=== PATIENT | male | born 1970 | race African-American/Black ===

== ENCOUNTER 2016-09-27 06:58 | Observation (INO) | payer BC ==
[2016-09-27] MEDS ORDERED: DIPHENHYDRAMINE HCL 50 MG/ML VIAL IV ONE ×2 (07:21→22:11)
[2016-09-27] MEDS ORDERED: FAMOTIDINE INJ/PF 20 MG/2 ML SDV IV ONE ×2 (07:21→22:07)
[2016-09-27] MEDS ORDERED: METHYLPREDNISOLONE INJ 125 MG/2 ML SDV IV ONE (07:21)
[2016-09-27] MEDS ORDERED: RACEPINEPHRINE HCL 2.25% NEB 0.5 ML AMPUL NEB ONE (07:22)
[2016-09-27 07:47] LABS: ABSOLUTE BASOPHILS # (AUTO) 0.1 10^3/uL (0.0-0.2); ABSOLUTE EOSINOPHILS # (AUTO) 0.1 10^3/uL (0.0-0.6); ABSOLUTE LYMPHOCYTES (AUTO) 2.6 10^3/uL (0.5-4.7); ABSOLUTE MONOCYTES (AUTO) 0.5 10^3/uL (0.1-1.4); ABSOLUTE NEUT (AUTO) 3.5 10^3/uL (1.7-8.2); BASOPHILS % (AUTO) 0.8 % (0-2); EOSINOPHILS % (AUTO) 2.1 % (0-6); HEMATOCRIT 41.6 % (37.9-51.0); HGB HCT DIFFERENCE 0.4; LYMPHOCYTES % (AUTO) 37.9 % (13-45); MEAN CORPUSCULAR HEMOGLOBIN 27.8 pg (27.0-33.4); MEAN CORPUSCULAR HGB CONC 33.7 g/dL (32.0-36.0); MEAN CORPUSCULAR VOLUME 82 fl (80-97); MONOCYTES % (AUTO) 7.5 % (3-13); RED BLOOD COUNT 5.05 10^6/uL (4.35-5.55); RED CELL DISTRIBUTION WIDTH 14.5 % (11.5-14.0); SEGMENTED NEUTROPHILS % (AUTO) 51.7 % (42-78); WHITE BLOOD COUNT 6.8 10^3/uL (4.0-10.5)
[2016-09-27 08:08] LABS: ALANINE AMINOTRANSFERASE 33 U/L (21-72); ALBUMIN 3.7 g/dL (3.5-5.0); ALKALINE PHOSPHATASE 116 U/L (38-126); ANION GAP 9 (5-19); ASPARTATE AMINO TRANSFERASE 20 U/L (17-59); BILIRUBIN,TOTAL 0.4 mg/dL (0.2-1.3); BLOOD UREA NITROGEN 13 mg/dL (7-20); CALCIUM 9.6 mg/dL (8.4-10.2); CARBON DIOXIDE 32 mmol/L (22-30); CHLORIDE 94 mmol/L (98-107); CREATININE RESULT 1.17 mg/dL (0.52-1.25); POTASSIUM 4.7 mmol/L (3.6-5.0); SODIUM 135.1 mmol/L (137-145); TOTAL PROTEIN 7.5 g/dL (6.3-8.2)
[2016-09-27 08:34] LABS: GLUCOSE 524 mg/dL (75-110)
[2016-09-27] MEDS ORDERED: INSULIN REG, HUMAN 100 UNIT/ML 3 ML VIAL (PYX) SUBCUT ONE (08:35)
--- NOTE | 2016-09-27 09:10 | ER Document Report ---
ED General - General Chief Complaint: Allergic Reaction Stated Complaint: TROUBLE BREATHING TRAVEL OUTSIDE OF THE [place] IN LAST 30 DAYS: No - Related Data Allergies/Adverse Reactions: ROSS Inhibitors Allergy (Severe, Verified 01/27/16 09:34) Angioneurotic Edema cyclobenzaprine HCl [From Flexeril] Allergy (Verified 01/23/16 08:43) eyes swell, SOB ibuprofen [Ibuprofen] Allergy (Verified 01/23/16 08:43) eyes swell, SOB naproxen [Naproxen] Allergy (Verified 01/23/16 08:43) eyes swell, SOB eggs Adverse Reaction (Intermediate, Uncoded 06/23/13 13:11) Hives Past Medical History - Social History Smoking Status: Never Smoker Chew tobacco use (# tins/day): No Frequency of alcohol use: Rare Drug Abuse: None Family History: Reviewed & Not Pertinent Patient has suicidal ideation: No Patient has homicidal ideation: No - Past Medical History Cardiac Medical History: Reports: Hx Hypercholesterolemia, Hx Hypertension Denies: Hx Coronary Artery Disease, Hx Heart Attack Pulmonary Medical History: Denies: Hx Asthma, Hx Bronchitis, Hx COPD, Hx Pneumonia, Hx Tuberculosis Neurological Medical History: Denies: Hx Cerebrovascular Accident, Hx Seizures Endocrine Medical History: Reports: Hx Diabetes Mellitus Type 2 Renal/ Medical History: Denies: Hx Peritoneal Dialysis Musculoskeltal Medical History: Denies Hx Arthritis Psychiatric Medical History: Reports: Hx Bipolar Disorder Denies: Hx Depression Past Surgical History: Reports: Hx Orthopedic Surgery - right thigh, right hand - Immunizations Immunizations up to date: Yes Hx Diphtheria, Pertussis, Tetanus Vaccination: Yes Physical Exam - Vital signs Vitals: Resp BP Pulse Ox 11 L 148/99 H 98 09/27/16 07:29 09/27/16 07:29 09/27/16 07:29 Course - Vital Signs Vital signs: Temp Pulse Resp BP Pulse Ox 14 148/99 H 94 09/27/16 09:00 09/27/16 07:29 09/27/16 09:00 - Laboratory Result Diagrams: 09/27/16 07:29 09/27/16 07:29 Laboratory results interpreted by me: 09/27/16 09/27/16 07:29 07:29 RDW 14.5 H Sodium 135.1 L Chloride 94 L Carbon Dioxide 32 H Glucose 524 H* Discharge - Discharge Clinical Impression: Uvular edema Dyspnea Qualifiers: Dyspnea type: unspecified Qualified Code(s): R06.00 - Dyspnea, unspecified Disposition: ADMITTED OBSERVATION Admitting Provider: José Miguel Loo Unit Admitted: Telemetry
[2016-09-27] MEDS ORDERED: DEXTROSE 50%-WATER 25 GM/50 ML DISP.SYRIN IV PRN ×2 (09:18)
[2016-09-27] MEDS ORDERED: DEXTROSE 40% GEL 15 GM TUBE PO PRN ×2 (09:18)
[2016-09-27] MEDS ORDERED: GLUCAGON,HUMAN RECOMB 1 MG INJ IM PRN (09:18)
[2016-09-27] MEDS ORDERED: INSULIN LISPRO 100 UNIT/ML 3 ML VIAL SUBCUT PRN (09:18)
--- NOTE | 2016-09-27 09:27 | PDOC H&P ---
History of Present Illness Admission Date/PCP: 09/27/2016 Primary Care Provider: DC Patient complains of: Throat swelling History of Present Illness: JOMAR OLIVO is a 46 year old -Algerian male with a past medical history of hypertension and angioedema associated with ROSS inhibitor. The patient presented to the emergency department with a chief complaint of throat swelling. It appears the patient has been admitted in the past with angioedema which associated with ROSS inhibitor. The patient's symptoms resolved and he was discharged home. However the patient was recently started on an ARB, losartan, for hypertension. The patient has taken a few doses of this and subsequently presented with angioedema. At the time of admission the patient denies any drooling he is not stridorous he is able to swallow no audible wheezing. However the patient does have persistent angioedema.The patient was referred to the hospitalists for observation and management. MEDICATIONS: The medications listed in this document may have been auto- populated from previous contact and may not been verified or reconciled. This may not be an accurate reflection of the patient's home medication(s); however, authors are unable to edit or delete the medications listed in this document as "home medications". Past Medical History Cardiac Medical History: Reports: Hyperlipidema, Hypertension Endocrine Medical History: Reports: Diabetes Mellitus Type 2 Psychiatric Medical History: Reports: Bipolar Disorder, Depression, Other - Opiate dependency continuous Past Surgical History Past Surgical History: Reports: Orthopedic Surgery - right thigh, right hand Social History Information Source: Patient Occupation: Disabled Lives with: Spouse/Significant other Smoking Status: Never Smoker Frequency of Alcohol Use: None Hx Recreational Drug Use: No Drugs: None Hx Prescription Drug Abuse: No - Advance Directive Resuscitation Status: Full Code Surrogate healthcare decision maker:: Mother Family History Family History: Reviewed & Not Pertinent Parental Family History Reviewed: Yes Children Family History Reviewed: Yes Sibling(s) Family History Reviewed.: Yes Medication/Allergy Home Medications: Insulin Detemir [Levemir Insulin 100 units/mL] 80 unit SUBCUT ACBRKFST 05/12/13 Insulin Aspart [Novolog Insulin (Aspart) 100 unit/mL] 15 unit SUBCUT AC Omeprazole 20 mg PO DAILY 06/23/13 Losartan Potassium 25 mg PO DAILY 01/23/16 Amitriptyline HCl [Elavil 100 mg Tablet] 100 mg PO QHS 02/29/16 Insulin Detemir [Levemir Insulin 100 units/mL] 80 unit SUBCUT PCSUPPER 03/01/16 Oxycodone HCl/Acetaminophen [Percocet 5-325 mg Tablet] 2 tab PO Q4HP PRN #0 tablet 03/03/16 Allergies/Adverse Reactions: ROSS Inhibitors Allergy (Severe, Verified 01/27/16 09:34) Angioneurotic Edema cyclobenzaprine HCl [From Flexeril] Allergy (Verified 01/23/16 08:43) eyes swell, SOB ibuprofen [Ibuprofen] Allergy (Verified 01/23/16 08:43) eyes swell, SOB naproxen [Naproxen] Allergy (Verified 01/23/16 08:43) eyes swell, SOB eggs Adverse Reaction (Intermediate, Uncoded 06/23/13 13:11) Hives Review of Systems Constitutional: ABSENT: chills, fever(s), headache(s), weight gain, weight loss Eyes: ABSENT: visual disturbances Ears: ABSENT: hearing changes Nose, Mouth, and Throat: PRESENT: mouth pain Cardiovascular: ABSENT: chest pain, dyspnea on exertion, edema, orthropnea, palpitations Respiratory: PRESENT: dyspnea. ABSENT: cough, hemoptysis Gastrointestinal: ABSENT: abdominal pain, constipation, diarrhea, hematemesis, hematochezia, nausea, vomiting Genitourinary: ABSENT: dysuria, hematuria Musculoskeletal: ABSENT: joint swelling Integumentary: ABSENT: rash, wounds Neurological: ABSENT: abnormal gait, abnormal speech, confusion, dizziness, focal weakness, syncope Psychiatric: ABSENT: anxiety, depression, homidical ideation, suicidal ideation Endocrine: ABSENT: cold intolerance, heat intolerance, polydipsia, polyuria Hematologic/Lymphatic: ABSENT: easy bleeding, easy bruising Physical Exam Vital Signs: Temp Pulse Resp BP Pulse Ox 14 148/99 H 94 09/27/16 09:00 09/27/16 07:29 09/27/16 09:00 Intake & Output 09/25/16 09/26/16 09/27/16 23:59 23:59 23:59 Weight 94.7 kg General appearance: PRESENT: no acute distress, cooperative, well-developed, well-nourished Head exam: PRESENT: atraumatic, normocephalic Eye exam: PRESENT: conjunctiva pink, EOMI, PERRLA. ABSENT: scleral icterus Ear exam: PRESENT: normal external ear exam Mouth exam: PRESENT: moist, tongue midline, other - Edematous uvula and tongue and lower lip Neck exam: ABSENT: carotid bruit, JVD, lymphadenopathy, thyromegaly Respiratory exam: PRESENT: clear to auscultation rian, symmetrical, unlabored. ABSENT: rales, rhonchi, tachypnea, wheezes Cardiovascular exam: PRESENT: RRR. ABSENT: diastolic murmur, rubs, systolic murmur Pulses: PRESENT: normal dorsalis pedis pul Vascular exam: PRESENT: normal capillary refill GI/Abdominal exam: PRESENT: normal bowel sounds, soft. ABSENT: distended, guarding, mass, organolmegaly, rebound, tenderness Rectal exam: PRESENT: deferred Extremities exam: PRESENT: full ROM. ABSENT: calf tenderness, clubbing, pedal edema Neurological exam: PRESENT: alert, awake, oriented to person, oriented to place , oriented to time, oriented to situation, CN II-XII grossly intact. ABSENT: motor sensory deficit Psychiatric exam: PRESENT: appropriate affect, normal mood. ABSENT: homicidal ideation, suicidal ideation Skin exam: PRESENT: dry, intact, warm. ABSENT: cyanosis, rash Results Laboratory Results: 09/27/16 07:29 09/27/16 07:29 09/27/16 09/27/16 09/27/16 07:29 07:29 07:47 WBC 6.8 RBC 5.05 Hgb 14.0 Hct 41.6 MCV 82 MCH 27.8 MCHC 33.7 RDW 14.5 H Plt Count 301 Seg Neutrophils % 51.7 Lymphocytes % 37.9 Monocytes % 7.5 Eosinophils % 2.1 Basophils % 0.8 Absolute Neutrophils 3.5 Absolute Lymphocytes 2.6 Absolute Monocytes 0.5 Absolute Eosinophils 0.1 Absolute Basophils 0.1 Sodium 135.1 L Potassium 4.7 Chloride 94 L Carbon Dioxide 32 H Anion Gap 9 BUN 13 Creatinine 1.17 Est GFR ( Amer) > 60 Est GFR (Non-Af Amer) > 60 Glucose 524 H* Calcium 9.6 Total Bilirubin 0.4 AST 20 ALT 33 Alkaline Phosphatase 116 Total Protein 7.5 Albumin 3.7 Blood Type A POSITIVE Antibody Screen NEGATIVE Assessment & Plan - Diagnosis (1) Angioedema Qualifiers: Encounter type: initial encounter Qualified Code(s): T78.3XXA - Angioneurotic edema, initial encounter Is this a current diagnosis for this admission?: YesPlan: The patient has received steroids and Benadryl in the emergency department as well as nebulizer. Will observe the patient in continuous telemetry and will start patient on both H1 and H2 receptor blockers. And monitor for evidence of respiratory compromise. No stridor at present. (2) Hypertension Qualifiers: Hypertension type: essential hypertension Qualified Code(s): I10 - Essential (primary) hypertension Is this a current diagnosis for this admission?: YesPlan: The patient is actually normotensive at this time. Will defer blood pressure treatment for now. (3) Opiate dependence, continuous Is this a current diagnosis for this admission?: YesPlan: Resume home medications once reconcilable (4) Diabetes mellitus type 2 in nonobese Is this a current diagnosis for this admission?: YesPlan: Start the patient on sliding scale coverage and resume home medications once the patient is able to take by mouth. (5) DVT prophylaxis Is this a current diagnosis for this admission?: YesPlan: Start subcutaneous heparin and ASIA hose. - Time Time Spent: 50 to 70 Minutes Medications reviewed and adjusted accordingly: Yes Anticipated discharge: Home Within: within 24 hours Disposition: The patient is a full code. Pending patient's symptomatology and diagnostic findings will reevaluate in the a.m.
[2016-09-27] MEDS ORDERED: NORMAL SALINE 1000 ML 1,000 ML IV ONE (10:00)
[2016-09-27] MEDS: CETIRIZINE 10 MG TABLET PO SCH (10:03)
[2016-09-27] MEDS ORDERED: ACETAMINOPHEN WITH CODEINE #3 TABLET PO PRN (13:36)
--- NOTE | 2016-09-27 14:30 | ER Document Report ---
ED General - General Chief Complaint: Allergic Reaction Stated Complaint: TROUBLE BREATHING TRAVEL OUTSIDE OF THE [place] IN LAST 30 DAYS: No - HPI Patient complains to provider of: uvula swelling difficulty breathing Notes: Patient with a history of angioedema coming in today for uvula swelling difficulty in breathing. Patient states this is happened before swelling to the back of his throat due to lisinopril. Patient states that he is currently on losartan. Patient states he has been taking his medications as prescribed. Patient denies any other complaints no fevers chills nausea vomiting chest pain abdominal pain. Patient states this is very similar to the last time he was admitted. - Related Data Allergies/Adverse Reactions: ROSS Inhibitors Allergy (Severe, Verified 01/27/16 09:34) Angioneurotic Edema ARB-Angiotensin Receptor Antagonist Allergy (Severe, Verified 09/27/16 13:38) Angioneurotic Edema cyclobenzaprine HCl [From Flexeril] Allergy (Verified 01/23/16 08:43) eyes swell, SOB ibuprofen [Ibuprofen] Allergy (Verified 01/23/16 08:43) eyes swell, SOB naproxen [Naproxen] Allergy (Verified 01/23/16 08:43) eyes swell, SOB eggs Adverse Reaction (Intermediate, Uncoded 06/23/13 13:11) Hives Home Medications: Current Home Medications Acetaminophen with Codeine [Tylenol #3 Tablet] 1 tab PO Q6HP PRN 09/27/16 [ History] Past Medical History - Social History Smoking Status: Never Smoker Chew tobacco use (# tins/day): No Frequency of alcohol use: Rare Drug Abuse: None Lives with: Spouse/Significant other Family History: Reviewed & Not Pertinent Patient has suicidal ideation: No Patient has homicidal ideation: No - Past Medical History Cardiac Medical History: Reports: Hx Hypercholesterolemia, Hx Hypertension Denies: Hx Coronary Artery Disease, Hx Heart Attack Pulmonary Medical History: Denies: Hx Asthma, Hx Bronchitis, Hx COPD, Hx Pneumonia, Hx Tuberculosis Neurological Medical History: Denies: Hx Cerebrovascular Accident, Hx Seizures Endocrine Medical History: Reports: Hx Diabetes Mellitus Type 2 Renal/ Medical History: Denies: Hx Peritoneal Dialysis Musculoskeltal Medical History: Denies Hx Arthritis Psychiatric Medical History: Reports: Hx Bipolar Disorder, Hx Depression, Other - Opiate dependency continuous Past Surgical History: Reports: Hx Orthopedic Surgery - right thigh, right hand - Immunizations Immunizations up to date: Yes Hx Diphtheria, Pertussis, Tetanus Vaccination: Yes History of Pneumococcal Vaccine: No Review of Systems - Review of Systems Constitutional: No symptoms reported EENT: Other - Uvula edema shortness of breath Cardiovascular: No symptoms reported Respiratory: No symptoms reported Gastrointestinal: No symptoms reported Genitourinary: No symptoms reported Male Genitourinary: No symptoms reported Musculoskeletal: No symptoms reported Skin: No symptoms reported Hematologic/Lymphatic: No symptoms reported Neurological/Psychological: No symptoms reported -: Yes All other systems reviewed and negative Physical Exam - Vital signs Vitals: Temp Pulse Resp BP Pulse Ox 97.9 F 91 14 151/92 H 96 09/27/16 07:02 09/27/16 07:02 09/27/16 07:02 09/27/16 07:02 09/27/16 07:02 Interpretation: Normal - General General appearance: Appears well, Alert - HEENT Head: Normocephalic, Atraumatic Eyes: Normal Conjunctiva: Normal Cornea: Normal Extraocular movements intact: Yes Pupils: PERRL Ears: Normal External canal: Normal Sinus: Normal Nasal: Normal Mouth/Lips: Normal Pharynx: Uvular edema - Uvula is elongated swollen Neck: Normal - Respiratory Respiratory status: No respiratory distress Chest status: Nontender Breath sounds: Normal Chest palpation: Normal - Cardiovascular Rhythm: Regular Heart sounds: Normal auscultation Murmur: No - Abdominal Inspection: Normal Distension: No distension Bowel sounds: Normal Tenderness: Nontender Organomegaly: No organomegaly - Back Back: Normal, Nontender - Extremities General upper extremity: Normal inspection, Nontender, Normal color, Normal ROM , Normal temperature General lower extremity: Normal inspection, Nontender, Normal color, Normal ROM , Normal temperature, Normal weight bearing. No: Candice's sign - Neurological Neuro grossly intact: Yes Cognition: Normal Orientation: AAOx4 [place] Coma Scale Eye Opening: Spontaneous [place] Coma Scale Verbal: Oriented [place] Coma Scale Motor: Obeys Commands [place] Coma Scale Total: 15 Speech: Normal Motor strength normal: LUE, RUE, LLE, RLE Sensory: Normal - Psychological Associated symptoms: Normal affect, Normal mood - Skin Skin Temperature: Warm Skin Moisture: Dry Skin Color: Normal Course - Re-evaluation Re-evalutation: 09/27/16 14:28 Patient's lab work showed the patient had elevated blood sugars no sign DKA. Patient had no improvement after racemic epinephrine neb Solu-Medrol Pepcid and Benadryl. Patient's vital signs remain stable patient was able to talk with clear voice. At this time patient does not look like any would need advanced airway management but would need admission to the hospital. Discussed with hospitalist will admit for further evaluation and observation. - Vital Signs Vital signs: Temp Pulse Resp BP Pulse Ox 97.9 F 74 16 156/97 H 99 09/27/16 10:48 09/27/16 10:49 09/27/16 10:48 09/27/16 10:49 09/27/16 10:48 - Laboratory Result Diagrams: 09/27/16 07:29 09/27/16 07:29 Laboratory results interpreted by me: 09/27/16 09/27/16 07:29 07:29 RDW 14.5 H Sodium 135.1 L Chloride 94 L Carbon Dioxide 32 H Glucose 524 H* Critical Care Note - Critical Care Note Total time excluding time spent on procedures (mins): 35 Comments: Multiple evaluations for patient with uvula edema angioedema. Discharge - Discharge Clinical Impression: Uvular edema Dyspnea Qualifiers: Dyspnea type: unspecified Qualified Code(s): R06.00 - Dyspnea, unspecified Condition: Good Disposition: ADMITTED OBSERVATION Admitting Provider: José Miguel matamoros Unit Admitted: Telemetry
[2016-09-27] MEDS: HEPARIN SOD (PORCINE) 5,000 UNIT/ML 1 ML SYRINGE SUBCUT SCH ×2 (14:40→21:50)
[2016-09-27] MEDS: ACETAMINOPHEN WITH CODEINE #3 TABLET PO PRN ×2 (14:42→20:43)
[2016-09-27] MEDS ORDERED: INSULIN ASPART 15 UNIT SUBCUT SCH (16:00)
[2016-09-27] MEDS: INSULIN LISPRO 100 UNIT/ML 3 ML VIAL SUBCUT SCH (16:12)
[2016-09-27] MEDS: INSULIN DETEMIR 100 UNIT/ML 3 ML PEN SUBCUT SCH (16:12)
[2016-09-27] MEDS ORDERED: INSULIN DETEMIR 100 UNIT/ML 3 ML PEN SUBCUT SCH (18:00)
[2016-09-27] MEDS ORDERED: INSULIN LISPRO 100 UNIT/ML 3 ML VIAL SUBCUT ONE (20:45)
[2016-09-27] MEDS: FAMOTIDINE INJ/PF 20 MG/2 ML SDV IV SCH (21:50)
[2016-09-27] MEDS ORDERED: AMITRIPTYLINE HCL 50 MG TABLET PO SCH (22:00)
[2016-09-27] MEDS ORDERED: (PENDING PHARMACY ID) (Amitriptyline Hcl [Elavil 100 Mg Tablet] 100 MG) PO SCH (22:00)
[2016-09-28] MEDS: ACETAMINOPHEN WITH CODEINE #3 TABLET PO PRN (06:09)
[2016-09-28] MEDS: HEPARIN SOD (PORCINE) 5,000 UNIT/ML 1 ML SYRINGE SUBCUT SCH (06:09)
[2016-09-28] MEDS ORDERED: LANSOPRAZOLE 15 MG TAB.RAP.DR PO SCH (08:00)
[2016-09-28] MEDS: INSULIN LISPRO 100 UNIT/ML 3 ML VIAL SUBCUT SCH (08:02)
[2016-09-28] MEDS: INSULIN DETEMIR 100 UNIT/ML 3 ML PEN SUBCUT SCH (08:02)
[2016-09-28] MEDS: CETIRIZINE 10 MG TABLET PO SCH (09:20)
[2016-09-28] MEDS: FAMOTIDINE INJ/PF 20 MG/2 ML SDV IV SCH (09:20)
[2016-09-28] MEDS ORDERED: AMLODIPINE BESYLATE 5 MG TABLET PO ONE (09:33)
[2016-09-28 10:53] VITALS: BP 158/95
--- NOTE | 2016-09-28 13:19 | PDOC DISCHARGE SUMMARY ---
General - Admit/Disc Date/PCP Admission Date/Primary Care Provider: 09/27/16 09:16 Discharge Date: 09/28/16 - Discharge Diagnosis (1) Angioedema Is this a current diagnosis for this admission?: YesSummary: This has resolved, most likely secondary to losartan (2) Uvular edema Summary: This has resolved with IV steroid, and pepcid - Additional Information Resuscitation Status: Full Code Discharge Diet: Diabetic Discharge Activity: Activity As Tolerated, Balance Activity w/Rest Home Medications: Insulin Detemir [Levemir Insulin 100 units/mL] 80 unit SUBCUT ACBRKFST 05/12/13 Insulin Aspart [Novolog Insulin (Aspart) 100 unit/mL] 15 unit SUBCUT AC Omeprazole 20 mg PO DAILY 06/23/13 Amitriptyline HCl [Elavil 100 mg Tablet] 100 mg PO QHS 02/29/16 Insulin Detemir [Levemir Insulin 100 units/mL] 80 unit SUBCUT PCSUPPER 03/01/16 Acetaminophen with Codeine [Tylenol #3 Tablet] 1 tab PO Q6HP PRN 09/27/16 Amlodipine Besylate 5 mg PO DAILY #30 tablet 09/28/16 Cetirizine HCl [Zyrtec 10 mg Tablet] 10 mg PO DAILY tablet 09/28/16 History of Present Illness History of Present Illness: JOMAR OLIVO is a 46 year old male who was presented to [facility] with throat swelling and difficulty breathing. He has a prior history of angioedema from tereso inhibitor, Lisinopril. He was recently started on Losartan by his PCP. He took it the am of his presentation here and shortly after began having swelling of his uvula and throat. He was given epi subcutaneous, IV steroids and Pepcid by the ED MD and referred for admission to the hospitalist service s Hospital Course Hospital Course: He was admitted to telemetry. He had resolution of his uvula swelling overnight. This morning he feels well. He tolerated a regular diabetic diet. He was started on amlodipine in place of his losartan and was will be discharged home. Physical Exam Vital Signs: Temp Pulse Resp BP Pulse Ox 98.0 F 71 18 158/95 H 98 09/28/16 10:45 09/28/16 10:45 09/28/16 10:45 09/28/16 10:45 09/28/16 10:45 Intake & Output 09/27/16 09/28/16 09/29/16 06:59 06:59 06:59 Intake Total 1330 Balance 1330 Weight 94.7 kg General appearance: PRESENT: no acute distress, well-developed, well-nourished Head exam: PRESENT: atraumatic, normocephalic Eye exam: PRESENT: conjunctiva pink, EOMI, PERRLA. ABSENT: scleral icterus Ear exam: PRESENT: normal external ear exam Mouth exam: PRESENT: moist, tongue midline Neck exam: ABSENT: carotid bruit, JVD, lymphadenopathy, thyromegaly Respiratory exam: PRESENT: clear to auscultation rian. ABSENT: rales, rhonchi, wheezes Cardiovascular exam: PRESENT: RRR. ABSENT: diastolic murmur, rubs, systolic murmur Pulses: PRESENT: normal dorsalis pedis pul Vascular exam: PRESENT: normal capillary refill GI/Abdominal exam: PRESENT: normal bowel sounds, soft. ABSENT: distended, guarding, mass, organolmegaly, rebound, tenderness Rectal exam: PRESENT: deferred Extremities exam: PRESENT: full ROM. ABSENT: calf tenderness, clubbing, pedal edema Neurological exam: PRESENT: alert, awake, oriented to person, oriented to place , oriented to time, oriented to situation, CN II-XII grossly intact. ABSENT: motor sensory deficit Psychiatric exam: PRESENT: appropriate affect, normal mood. ABSENT: homicidal ideation, suicidal ideation Skin exam: PRESENT: dry, intact, warm. ABSENT: cyanosis, rash Qualifiers PATEINT BEING DISCHARGED WITH ANY OF THE FOLLOWING DIAGNOSIS?: No Plan Time Spent: Less than 30 Minutes
== END 2016-09-28 11:10 | disposition home or self-care (01) ==
LOC: ER 06:58 → EH 09:16 → UNDOADMOB 09:29 → EH 09:29 → 5 10:34
DX: T78.3XXA Angioneurotic edema, initial encounter (principal); K12.2 Cellulitis and abscess of mouth; I10 Essential (primary) hypertension; R06.00 Dyspnea, unspecified; E78.5 Hyperlipidemia, unspecified; E11.9 Type 2 diabetes mellitus without complications; F31.9 Bipolar disorder, unspecified; F11.20 Opioid dependence, uncomplicated; E78.00 Pure hypercholesterolemia, unspecified; Z79.899 Other long term (current) drug therapy; Z88.6 Allergy status to analgesic agent; Z88.8 Allergy status to other drugs, medicaments and biological substances
CPT/HCPCS: 94640; 99291; 96374; 96375; 86900; 86901; 36415; 86850; 82962 ×2; 85025; 80053; G0378 ×3; J1644 ×2; J1815 ×4; J1200; J2930; J3490 ×2; J7030; S0028 ×2

== ENCOUNTER 2017-05-18 10:30 | Emergency (ER) | payer OTHER, BC ==
--- NOTE | 2017-05-18 10:43 | ER Document Report ---
ED Medical Screen (RME) - General Chief Complaint: Suicidal Ideation Stated Complaint: JANINE JAVIER Time Seen by Provider: 05/18/17 10:42 Notes: Patient reports that he is very depressed and tried to kill himself last night. He states that he tried to asphyxiate himself in his garage with his car. Patient states this is not the first time that he is trying to kill himself. He states he has been very depressed and tearful. He denies any auditory or visual hallucinations. He denies any psychiatric diagnosis other than depression. He states he is currently followed by a psychiatrist at the [facility]. Patient states he does live alone. He does not have access to a gun. TRAVEL OUTSIDE OF THE [place] IN LAST 30 DAYS: No - Related Data Allergies/Adverse Reactions: ROSS Inhibitors Allergy (Severe, Verified 05/18/17 10:36) Angioneurotic Edema ARB-Angiotensin Receptor Antagonist Allergy (Severe, Verified 05/18/17 10:36) Angioneurotic Edema cyclobenzaprine HCl [From Flexeril] Allergy (Verified 05/18/17 10:36) eyes swell, SOB ibuprofen [Ibuprofen] Allergy (Verified 05/18/17 10:36) eyes swell, SOB naproxen [Naproxen] Allergy (Verified 05/18/17 10:36) eyes swell, SOB eggs Adverse Reaction (Intermediate, Uncoded 05/18/17 10:36) Hives Past Medical History - Past Medical History Cardiac Medical History: Reports: Hx Hypercholesterolemia, Hx Hypertension Denies: Hx Coronary Artery Disease, Hx Heart Attack Pulmonary Medical History: Denies: Hx Asthma, Hx Bronchitis, Hx COPD, Hx Pneumonia, Hx Tuberculosis Neurological Medical History: Denies: Hx Cerebrovascular Accident, Hx Seizures Endocrine Medical History: Reports: Hx Diabetes Mellitus Type 2 Renal/ Medical History: Denies: Hx Peritoneal Dialysis Musculoskeltal Medical History: Denies Hx Arthritis Psychiatric Medical History: Reports: Hx Bipolar Disorder, Hx Depression Past Surgical History: Reports: Hx Orthopedic Surgery - right thigh, right hand - Immunizations Immunizations up to date: Yes Hx Diphtheria, Pertussis, Tetanus Vaccination: Yes Physical Exam - Vital signs Vitals: Temp Pulse Resp BP Pulse Ox 98.6 F 96 14 156/123 H 98 05/18/17 10:31 05/18/17 10:31 05/18/17 10:31 05/18/17 10:31 05/18/17 10:31 Course - Vital Signs Vital signs: Temp Pulse Resp BP Pulse Ox 98.6 F 96 14 156/123 H 98 05/18/17 10:31 05/18/17 10:31 05/18/17 10:31 05/18/17 10:31 05/18/17 10:31
[2017-05-18 11:34] LABS: ABSOLUTE BASOPHILS # (AUTO) 0.1 10^3/uL (0.0-0.2); ABSOLUTE LYMPHOCYTES (AUTO) 2.6 10^3/uL (0.5-4.7); ABSOLUTE MONOCYTES (AUTO) 0.5 10^3/uL (0.1-1.4); ABSOLUTE NEUT (AUTO) 5.3 10^3/uL (1.7-8.2); BASOPHILS % (AUTO) 1.2 % (0-2); EOSINOPHILS % (AUTO) 0.4 % (0-6); HEMATOCRIT 50.8 % (37.9-51.0); HEMOGLOBIN 17.4 g/dL (13.5-17.0); HGB HCT DIFFERENCE 1.4; LYMPHOCYTES % (AUTO) 30.2 % (13-45); MEAN CORPUSCULAR HEMOGLOBIN 28.7 pg (27.0-33.4); MEAN CORPUSCULAR HGB CONC 34.3 g/dL (32.0-36.0); MEAN CORPUSCULAR VOLUME 84 fl (80-97); MONOCYTES % (AUTO) 5.9 % (3-13); RED BLOOD COUNT 6.07 10^6/uL (4.35-5.55); RED CELL DISTRIBUTION WIDTH 15.4 % (11.5-14.0); SEGMENTED NEUTROPHILS % (AUTO) 62.3 % (42-78); WHITE BLOOD COUNT 8.5 10^3/uL (4.0-10.5)
[2017-05-18 11:43] LABS: APPEARANCE,URINE CLEAR; BILIRUBIN,URINE NEGATIVE (NEGATIVE); GLUCOSE, URINE 150 mg/dL (NEGATIVE); KETONES,URINE NEGATIVE (NEGATIVE); LEUKOCYTE ESTERASE,URINE NEGATIVE (NEGATIVE); NITRITE,URINE NEGATIVE (NEGATIVE); PROTEIN,URINE >=500 mg/dL (NEGATIVE); URINE SPECIFIC GRAVITY 1.016
[2017-05-18 11:57] LABS: URINE BARBITURATES SCREEN NEGATIVE; URINE METHADONE SCREEN NEGATIVE; URINE OPIATES LOW NEGATIVE; URINE PHENCYCLIDINE SCREEN NEGATIVE
[2017-05-18 12:11] LABS: ALANINE AMINOTRANSFERASE 48 U/L (21-72); ALBUMIN 4.6 g/dL (3.5-5.0); ALKALINE PHOSPHATASE 128 U/L (38-126); ANION GAP 14 (5-19); ASPARTATE AMINO TRANSFERASE 37 U/L (17-59); BILIRUBIN,DIRECT 0.4 mg/dL (0.0-0.4); BILIRUBIN,TOTAL 0.6 mg/dL (0.2-1.3); BLOOD UREA NITROGEN 10 mg/dL (7-20); CALCIUM 10.1 mg/dL (8.4-10.2); CARBON DIOXIDE 30 mmol/L (22-30); CHLORIDE 99 mmol/L (98-107); CREATININE RESULT 1.13 mg/dL (0.52-1.25); GLUCOSE 139 mg/dL (75-110); POTASSIUM 4.2 mmol/L (3.6-5.0); TOTAL PROTEIN 8.7 g/dL (6.3-8.2)
[2017-05-18 12:14] LABS: ALCOHOL < 10 mg/dL (NONE DETECTED)
--- NOTE | 2017-05-18 12:14 | ER Document Report ---
ED Psych Disorder / Suicide - General Mode of Arrival: Ambulatory Information source: Patient TRAVEL OUTSIDE OF THE [place] IN LAST 30 DAYS: No - HPI Patient complains to provider of: Suicidal ideation, Suicidal attempt Onset: Yesterday Associated symptoms: Other - see above <PETAR HARMON - Last Filed: 05/18/17 12:31> <GUILHERME ESPINAL - Last Filed: 05/18/17 15:06> <SOSA HUTCHINS - Last Filed: 05/19/17 18:29> - General Chief Complaint: Suicidal Ideation Stated Complaint: JANINE JAVIER Time Seen by Provider: 05/18/17 10:42 Notes: Patient is a 47 year old male who presents to the ED for suicidal ideation for the past several month. Patient states last night he attempted suicide by carbon dioxide poisoning. He was sitting in his running car in his garage, he fell asleep at some point and when he woke up he had a headache and then turned the car off. He states he has been drinking very heavily recently, he has never gone through alcohol withdrawal. He denies any recent even or an increase in stress causing this event. He sees a counselor through the [place]. Patient also states he is diabetic, has taken his insulin but has not yet eaten. He also has a diabetic ulcer on his left great toe that is being treated by wound care. (PETAR HARMON) - HPI Notes: Evaluation 05/18/2017: Patient disclosed that he came to [facility] ED because he attempted suicide last night. He states that he got into the car and closed the garage door after turning the car on. Patient states he did turn off the car once he got a headache because he changed his mind at the last minute. Patient states he is tired of being depressed. Patient states "I cannot do what I used to do I am in a lot of pain." Patient states that some days he barely makes it through. He thinks about suicide at least 4-5 days a week. 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 Patient states "I drink every night until I pass out. Patient is alert and orientated to person place time and circumstance. Mood is dysphoric with tearful affect. Patient endorses suicidal ideation with plans mean an attempt. Patient denies homicidal ideation. Patient denies auditory visual hallucinations. Delusions were absent and behaviors congruent with intact reality based presentation i.e. organized, linear thinking. Eye contact was poor. Intellectual abilities appear to be within average range. Attention and concentration were fair. Conversational speech was within normal rate tone and prosody. Insight, judgment, impulse control are poor. 291.9 (F10.99) unspecified alcohol related disorder 311 (F32.9) unspecified depressive disorder Impression\\plan: Patient is recommended for IVC. Patient will be reevaluated. Dr. Pritchett was consulted on the care management of this patient; attending physician is agreement with recommendations and disposition. Clinician conducted checking with patient on 05/19/2017: Patient disclosed he is not feeling very different from yesterday. Patient asked clinician to discuss process again of IVC. Patient disclosed concern of being stuck in the room and being so depressed 291.9 (F10.99) unspecified alcohol related disorder 311 (F32.9) unspecified depressive disorder Impression\\plan: Patient is recommended to continue under IVC; patient was accepted to [facility] and transportation will occur today. Dr. Pritchett was consulted on the care and management of this patient; attending physician is in agreement with recommended she is a disposition. (SOSA HUTCHINS) - Related Data Allergies/Adverse Reactions: ROSS Inhibitors Allergy (Severe, Verified 05/18/17 10:36) Angioneurotic Edema ARB-Angiotensin Receptor Antagonist Allergy (Severe, Verified 05/18/17 10:36) Angioneurotic Edema cyclobenzaprine HCl [From Flexeril] Allergy (Verified 05/18/17 10:36) eyes swell, SOB ibuprofen [Ibuprofen] Allergy (Verified 05/18/17 10:36) eyes swell, SOB naproxen [Naproxen] Allergy (Verified 05/18/17 10:36) eyes swell, SOB eggs Adverse Reaction (Intermediate, Uncoded 05/18/17 10:36) Hives Home Medications: Current Home Medications Losartan Potassium 10 mg PO DAILY 05/18/17 [History] Pregabalin [Lyrica] 300 mg PO TID 05/18/17 [History] Past Medical History - General Information source: Patient - Social History Smoking Status: Never Smoker Chew tobacco use (# tins/day): No Frequency of alcohol use: Heavy Drug Abuse: None Family History: Reviewed & Not Pertinent Patient has suicidal ideation: Yes - Past Medical History Cardiac Medical History: Reports: Hx Hypercholesterolemia, Hx Hypertension Denies: Hx Coronary Artery Disease, Hx Heart Attack Pulmonary Medical History: Denies: Hx Asthma, Hx Bronchitis, Hx COPD, Hx Pneumonia, Hx Tuberculosis Neurological Medical History: Denies: Hx Cerebrovascular Accident, Hx Seizures Endocrine Medical History: Reports: Hx Diabetes Mellitus Type 2 Renal/ Medical History: Denies: Hx Peritoneal Dialysis Musculoskeltal Medical History: Denies Hx Arthritis Psychiatric Medical History: Reports: Hx Bipolar Disorder, Hx Depression Past Surgical History: Reports: Hx Orthopedic Surgery - right thigh, right hand - Immunizations Immunizations up to date: Yes Hx Diphtheria, Pertussis, Tetanus Vaccination: Yes <PETAR HARMON - Last Filed: 05/18/17 12:31> Review of Systems - Review of Systems Constitutional: No symptoms reported EENT: No symptoms reported Cardiovascular: No symptoms reported Respiratory: No symptoms reported Gastrointestinal: No symptoms reported Genitourinary: No symptoms reported Male Genitourinary: No symptoms reported Musculoskeletal: No symptoms reported Skin: See HPI, Other - diabetic ulcer to left great toe, being treated by wound clinic Hematologic/Lymphatic: No symptoms reported Neurological/Psychological: See HPI, Depression, Suicidal ideation <PETAR HARMON - Last Filed: 05/18/17 12:31> Physical Exam - General General appearance: Alert - HEENT Head: Normocephalic, Atraumatic Eyes: Normal Extraocular movements intact: Yes Pupils: PERRL - Respiratory Respiratory status: No respiratory distress Breath sounds: Normal - Cardiovascular Rhythm: Regular Heart sounds: Normal auscultation Murmur: No - Abdominal Inspection: Normal Distension: No distension Tenderness: Nontender - Back Back: Normal - Extremities General upper extremity: Normal inspection, Normal ROM General lower extremity: Normal ROM, Other - 1 cm ulcer to bottom of left great toe. No: Edema - Neurological Neuro grossly intact: Yes - Psychological Associated symptoms: Flat affect - Skin Skin Temperature: Warm Skin Moisture: Dry Skin Color: Normal Skin irregularity: other - 1 cm ulcer on bottom of left great toe <PETAR HARMON - Last Filed: 05/18/17 12:31> - Vital signs Vitals: Temp Pulse Resp BP Pulse Ox 98.6 F 96 14 156/123 H 98 05/18/17 10:31 05/18/17 10:31 05/18/17 10:31 05/18/17 10:31 05/18/17 10:31 Course - Laboratory Result Diagrams: 05/18/17 11:10 05/18/17 11:10 <FAUSTINOPETAR - Last Filed: 05/18/17 12:31> - Laboratory Result Diagrams: 05/18/17 11:10 05/18/17 11:10 <GUILHERME ESPINAL - Last Filed: 05/18/17 15:06> - Laboratory Result Diagrams: 05/18/17 11:10 05/18/17 11:10 <SOSA HUTCHINS - Last Filed: 05/19/17 18:29> - Re-evaluation Re-evalutation: 05/18/17 Patient presents with suicidal ideation. Patient has been seen for depression in the past. Patient states that he was in his car last night. Patient has no physical complaints at this time. Patient is medically stable. He will be evaluated by mental health and in the meantime remain on involuntary commitment paperwork due to suicidal ideation with recent attempt. (GUILHERME ESPINAL) - Vital Signs Vital signs: Temp Pulse Resp BP Pulse Ox 97.4 F 76 16 136/85 H 98 05/19/17 15:00 05/19/17 15:00 05/19/17 15:00 05/19/17 15:00 05/19/17 15:00 - Laboratory Laboratory results interpreted by la: 05/18/17 05/18/17 05/18/17 11:05 11:10 11:10 RBC 6.07 H Hgb 17.4 H RDW 15.4 H Glucose 139 H POC Glucose Alkaline Phosphatase 128 H Total Protein 8.7 H Urine Protein >=500 H Urine Glucose (UA) 150 H Urine Urobilinogen 2.0 H Salicylates < 1.0 L Acetaminophen < 10 L 05/18/17 05/18/17 05/18/17 12:16 18:09 21:14 RBC Hgb RDW Glucose POC Glucose 115 H 179 H 185 H Alkaline Phosphatase Total Protein Urine Protein Urine Glucose (UA) Urine Urobilinogen Salicylates Acetaminophen 0905/19/17 05/19/17 07:30 10:13 11:54 RBC Hgb RDW Glucose POC Glucose 111 H 57 L 148 H Alkaline Phosphatase Total Protein Urine Protein Urine Glucose (UA) Urine Urobilinogen Salicylates Acetaminophen Discharge <PETAR HARMON - Last Filed: 05/18/17 12:31> <GUILHERME ESPINAL - Last Filed: 05/18/17 15:06> <SOSA HUTCHINS - Last Filed: 05/19/17 18:29> - Discharge Clinical Impression: Depression Condition: Stable Disposition: PSYCH HOSP/UNIT Referrals: MARILYN NELSON MD [Primary Care Provider] - Follow up as needed Scribe Documentation - Scribe Written by Barneye:: james Cross, 05/18/2017, 1231 acting as scribe for :: Selwyn <PETAR HARMON - Last Filed: 05/18/17 12:31>
--- NOTE | 2017-05-18 14:04 | EKG REPORT ---
SEVERITY:- NORMAL ECG - SINUS RHYTHM : Confirmed by: Alejo Robles MD 18-May-2017 14:02:58
[2017-05-18] MEDS ORDERED: ACETAMINOPHEN 325 MG TABLET PO ONE (15:15)
[2017-05-18] MEDS ORDERED: OLANZAPINE 5 MG TABLET PO ONE (17:22)
[2017-05-18] MEDS ORDERED: HYDROXYZINE PAMOATE 50 MG CAPSULE PO PRN (17:22)
[2017-05-18] MEDS ORDERED: VENLAFAXINE HCL 75 MG TABLET PO SCH (18:00)
[2017-05-18] MEDS ORDERED: DEXTROSE 50%-WATER 25 GM/50 ML DISP.SYRIN IV PRN ×2 (18:11)
[2017-05-18] MEDS ORDERED: DEXTROSE 40% GEL 15 GM TUBE PO PRN ×2 (18:11)
[2017-05-18] MEDS ORDERED: GLUCAGON,HUMAN RECOMB 1 MG INJ IM PRN (18:11)
[2017-05-18] MEDS ORDERED: AMITRIPTYLINE HCL 50 MG TABLET PO SCH (22:00)
[2017-05-18] MEDS ORDERED: PREGABALIN 75 MG CAPSULE PO SCH (22:00)
[2017-05-19] MEDS ORDERED: MAGNESIUM SULFATE/D5W 0 GM/0 ML RTUPB IV ONE (01:43)
[2017-05-19] MEDS ORDERED: INSULIN LISPRO 100 UNIT/ML 3 ML VIAL SUBCUT SCH ×2 (08:00)
[2017-05-19] MEDS ORDERED: INSULIN ASPART 15 UNIT SUBCUT SCH (08:00)
[2017-05-19] MEDS ORDERED: INSULIN DETEMIR 100 UNIT/ML 3 ML PEN SUBCUT SCH ×2 (08:00→18:00)
[2017-05-19] MEDS ORDERED: PREGABALIN 100 MG CAPSULE PO ONE (08:15)
[2017-05-19] MEDS ORDERED: LANSOPRAZOLE 15 MG TAB.RAP.DR PO SCH (10:00)
[2017-05-19] MEDS ORDERED: LOSARTAN POTASSIUM 25 MG TABLET PO SCH (10:00)
--- NOTE | 2017-05-19 10:52 | ER Document Report ---
Doctor's Note Notes: 05/19/17 10:51 Patient resting, no complaints. Had an episode of hypoglycemia this morning. Did not receive his long-acting insulin as his blood sugar apparently was low.. We stopped his scheduled Humalog and he is eating. He is more alert at this point. We are awaiting transfer to [facility]. 05/19/17 11:36
[2017-05-19] MEDS ORDERED: VENLAFAXINE HCL 75 MG TABLET PO ONE (13:00)
[2017-05-19] MEDS ORDERED: PREGABALIN 100 MG CAPSULE PO SCH (14:00)
[2017-05-19 15:44] VITALS: BP 136/85
[2017-05-19] MEDS ORDERED: VENLAFAXINE HCL 75 MG TABLET PO SCH (22:00)
[2017-05-20] MEDS ORDERED: LANSOPRAZOLE 15 MG TAB.RAP.DR PO SCH (06:00)
== END 2017-05-19 15:45 ==
LOC: EEVIPCON 10:30 → ER 10:30
DX: F32.9 Major depressive disorder, single episode, unspecified (principal); T59.7X2A Toxic effect of carbon dioxide, intentional self-harm, initial encounter; F10.10 Alcohol abuse, uncomplicated; Y92.89 Other specified places as the place of occurrence of the external cause; Z79.899 Other long term (current) drug therapy
CPT/HCPCS: 93005; 36415; 82962; 80307 ×4; 85025; 80053; 81001; 93010; J1815 ×2

== ENCOUNTER → 2017-12-08 | Outpatient (CLI) | payer BC ==
--- NOTE | 2017-12-09 08:01 | XCELERA REPORT ---
[address] [address] Lower Extremity Arterial Evaluation Name: JOMAR OLIVO Age: 47 yrs Gender: Male : 1970 Patient Status: Outpatient Patient Location: Study Date: 12/08/2017 02:33 PM Procedure: A color flow and duplex scan of the lower extremity arteries was performed bilaterally with velocity and waveform anaylsis. 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 0 % stenosis . Ankle Brachial index 1.11 in the Posterior Tibial, not obtainable, in the Anterior Tibial artery due to non compressibility. Left Side Arterial Evaluation Normal velocity and triphasic waveforms noted from the Common Femoral artery to the infrageniculate vessels. 0 % stenosis . Ankle Brachial index not obtainable, due to non compressibility. Interpretation Summary No hemodynamically significant lesions in the bilateral lower extremities, on duplex imaging, at rest. Medial calcinosis is suggested by non compressibility in small arteries. : PHILIP CAVANAUGH > Keith Klein
== END ==
LOC: SP 14:00
PROVIDERS: ATTEND Preventive Medicine Undersea and Hyperbaric Medicine
DX: L97.512 Non-pressure chronic ulcer of other part of right foot with fat layer exposed (principal)
CPT/HCPCS: 93922; 93925

== ENCOUNTER → 2018-01-12 | Outpatient (CLI) | payer BC ==
--- NOTE | 2018-01-12 17:17 | RADIOLOGY REPORT (SQ) ---
EXAM DESCRIPTION: FOOT LEFT COMPLETE COMPLETED DATE/TIME: 01/12/2018 5:07 pm REASON FOR STUDY: Non-pressure chronic ulcer of other part of left foot with fat layer expose COMPARISON: None. NUMBER OF VIEWS: Three views. TECHNIQUE: AP, lateral and oblique radiographic images acquired of the left foot. LIMITATIONS: None. FINDINGS: MINERALIZATION: Normal. BONES: No acute fracture or dislocation. No worrisome bone lesions. JOINTS: No effusions. SOFT TISSUES: No soft tissue swelling. No foreign body. OTHER: No other significant finding. IMPRESSION: No acute osseous abnormality in the left foot. There is no evidence of osteomyelitis. TECHNICAL DOCUMENTATION: JOB ID: [id number] [employer]- All Rights Reserved Reading location - IP/workstation name: [email or web address]
== END ==
LOC: RAD 16:45
PROVIDERS: ATTEND Preventive Medicine Undersea and Hyperbaric Medicine
DX: L97.522 Non-pressure chronic ulcer of other part of left foot with fat layer exposed (principal)

== ENCOUNTER 2018-11-03 15:18 | Inpatient (IN) | payer OTHER, BC ==
[2018-11-03] MEDS ORDERED: RINGERS SOLUTION,LACTATED 1,000 ML IV PRN ×2 (15:48→23:29)
[2018-11-03] MEDS ORDERED: METOCLOPRAMIDE HCL INJ/PF 10 MG/2 ML SDV IV ONE (15:48)
[2018-11-03] MEDS ORDERED: PANTOPRAZOLE SODIUM 40 MG VIAL IV ONE ×2 (15:49→21:48)
[2018-11-03] MEDS ORDERED: DIPHENHYDRAMINE HCL 50 MG/ML VIAL IV ONE (15:49)
--- NOTE | 2018-11-03 15:51 | ER Document Report ---
ED Medical Screen (RME) - General Chief Complaint: Abdominal Pain Stated Complaint: VOMITING BLOOD Time Seen by Provider: 11/03/18 15:48 Primary Care Provider: PHILIP CAVANAUGH DPM [Primary Care Provider] - Follow up as needed Mode of Arrival: Ambulatory Information source: Patient Notes: This is a 48-year-old man with a history of GERD who presents to the emergency room with nausea, vomiting significant epigastric pain. TRAVEL OUTSIDE OF THE [place] IN LAST 30 DAYS: No - Related Data Allergies/Adverse Reactions: ROSS Inhibitors Allergy (Severe, Verified 11/03/18 15:21) Angioneurotic Edema ARB-Angiotensin Receptor Antagonist Allergy (Severe, Verified 11/03/18 15:21) Angioneurotic Edema cyclobenzaprine HCl [From Flexeril] Allergy (Verified 11/03/18 15:21) eyes swell, SOB ibuprofen [Ibuprofen] Allergy (Verified 11/03/18 15:21) eyes swell, SOB naproxen [Naproxen] Allergy (Verified 11/03/18 15:21) eyes swell, SOB eggs Adverse Reaction (Intermediate, Uncoded 11/03/18 15:21) Hives Past Medical History - Social History Chew tobacco use (# tins/day): No Frequency of alcohol use: Rare Drug Abuse: None - Past Medical History Cardiac Medical History: Reports: Hx Hypercholesterolemia, Hx Hypertension Denies: Hx Coronary Artery Disease, Hx Heart Attack Pulmonary Medical History: Denies: Hx Asthma, Hx Bronchitis, Hx COPD, Hx Pneumonia, Hx Tuberculosis Neurological Medical History: Denies: Hx Cerebrovascular Accident, Hx Seizures Endocrine Medical History: Reports: Hx Diabetes Mellitus Type 2 Renal/ Medical History: Denies: Hx Peritoneal Dialysis Musculoskeltal Medical History: Denies Hx Arthritis Psychiatric Medical History: Reports: Hx Bipolar Disorder, Hx Depression Past Surgical History: Reports: Hx Orthopedic Surgery - right thigh, right hand - Immunizations Immunizations up to date: Yes Hx Diphtheria, Pertussis, Tetanus Vaccination: Yes Physical Exam - Vital signs Vitals: Temp Pulse Resp BP Pulse Ox 99.5 F 108 H 16 166/110 H 97 11/03/18 15:23 11/03/18 15:23 11/03/18 15:23 11/03/18 15:23 11/03/18 15:23 Course - Vital Signs Vital signs: Temp Pulse Resp BP Pulse Ox 99.5 F 108 H 16 166/110 H 97 11/03/18 15:23 11/03/18 15:23 11/03/18 15:23 11/03/18 15:23 11/03/18 15:23 Doctor's Discharge - Discharge Referrals: PHILIP CAVANAUGH DPM [Primary Care Provider] - Follow up as needed
[2018-11-03 16:35] LABS: ABSOLUTE BASOPHILS # (AUTO) 0.1 10^3/uL (0.0-0.2); ABSOLUTE LYMPHOCYTES (AUTO) 2.9 10^3/uL (0.5-4.7); ABSOLUTE NEUT (AUTO) 9.7 10^3/uL (1.7-8.2); BASOPHILS % (AUTO) 1.1 % (0-2); EOSINOPHILS % (AUTO) 0.3 % (0-6); HEMOGLOBIN 16.2 g/dL (13.5-17.0); LYMPHOCYTES % (AUTO) 20.9 % (13-45); MEAN CORPUSCULAR HEMOGLOBIN 28.3 pg (27.0-33.4); MEAN CORPUSCULAR HGB CONC 34.4 g/dL (32.0-36.0); MEAN CORPUSCULAR VOLUME 82 fl (80-97); MONOCYTES % (AUTO) 7.1 % (3-13); PLATELET COUNT 300 10^3/uL (150-450); RED BLOOD COUNT 5.71 10^6/uL (4.35-5.55); SEGMENTED NEUTROPHILS % (AUTO) 70.6 % (42-78); TOTAL CELLS COUNTED % (AUTO) 100 %; WHITE BLOOD COUNT 13.7 10^3/uL (4.0-10.5)
[2018-11-03] MEDS ORDERED: MORPHINE SULFATE 10 MG/ML INJ IV ONE ×2 (16:37→18:09)
[2018-11-03] MEDS ORDERED: ONDANSETRON HCL INJ/PF 4 MG/2 ML SDV IV ONE (16:38)
[2018-11-03] MEDS: NORMAL SALINE 1000 ML 1,000 ML IV PRN ×3 (16:39→23:01)
[2018-11-03 16:55] LABS: ALANINE AMINOTRANSFERASE 22 U/L (21-72); ALBUMIN 4.6 g/dL (3.5-5.0); ALKALINE PHOSPHATASE 128 U/L (38-126); ANION GAP 13 (5-19); ASPARTATE AMINO TRANSFERASE 55 U/L (17-59); BILIRUBIN,DIRECT 0.2 mg/dL (0.0-0.4); BILIRUBIN,TOTAL 0.5 mg/dL (0.2-1.3); BLOOD UREA NITROGEN 23 mg/dL (7-20); CALCIUM 10.8 mg/dL (8.4-10.2); CARBON DIOXIDE 29 mmol/L (22-30); CHLORIDE 93 mmol/L (98-107); LIPASE 313.4 U/L (23-300); POTASSIUM 5.8 mmol/L (3.6-5.0); SODIUM 135.1 mmol/L (137-145); TOTAL PROTEIN 8.8 g/dL (6.3-8.2)
[2018-11-03 17:02] LABS: GLUCOSE 416 mg/dL (75-110)
--- NOTE | 2018-11-03 17:27 | RADIOLOGY REPORT (SQ) ---
EXAM DESCRIPTION: CHEST SINGLE VIEW COMPLETED DATE/TIME: 11/03/2018 5:13 pm REASON FOR STUDY: epigastric pain COMPARISON: 02/29/2016 TECHNIQUE: Single frontal radiographic view of the chest acquired. NUMBER OF VIEWS: One view. LIMITATIONS: None. FINDINGS: LUNGS AND PLEURA: No pneumothorax. No consolidation or pleural effusion. MEDIASTINUM AND HILAR STRUCTURES: Stable. HEART AND VASCULAR STRUCTURES: Stable. BONES: No acute findings. HARDWARE: None in the chest. OTHER: No other significant finding. IMPRESSION: NO ACUTE FINDINGS. TECHNICAL DOCUMENTATION: JOB ID: [id number] [employer]- All Rights Reserved Reading location - IP/workstation name: [email or web address]
[2018-11-03] MEDS ORDERED: LIDOCAINE 2% VISCOUS SOLN 20 ML UDCUP PO ONE (17:47)
[2018-11-03] MEDS ORDERED: METOCLOPRAMIDE HCL ORAL SOLN 10 MG/10 ML UDCUP PO ONE (17:47)
[2018-11-03] MEDS ORDERED: MAG HYDROX/AL HYDROX/SIMETH SUSP 30 ML UDCUP PO ONE (17:47)
--- NOTE | 2018-11-03 17:49 | ER Document Report ---
ED GI/ - General Chief Complaint: Abdominal Pain Stated Complaint: VOMITING BLOOD Time Seen by Provider: 11/03/18 15:48 Primary Care Provider: PHILIP CAVANAUGH DPM [ACTIVE STAFF] - Follow up as needed Mode of Arrival: Ambulatory Notes: 48-year-old -[place] male to the emergency department chief complaint of hematemesis. Patient states that he has been vomiting off and on for the last week. Got worse today. Has severe acid reflux. Having significant burning in the epigastric region. States he vomited about a cup of bright red blood. Has not noticed any black or tarry stools. He is on multiple medications. History of diabetes. Cannot stop having hiccups. TRAVEL OUTSIDE OF THE [place] IN LAST 30 DAYS: No - HPI Patient complains to provider of: Abdominal pain Timing/Duration: Gradual, Worse Quality of pain: Burning Severity at maximum: Moderate Severity in ED: Moderate Pain Level: 3 Location: Epigastric Associated symptoms: Vomiting - Related Data Allergies/Adverse Reactions: ROSS Inhibitors Allergy (Severe, Verified 11/03/18 15:21) Angioneurotic Edema ARB-Angiotensin Receptor Antagonist Allergy (Severe, Verified 11/03/18 15:21) Angioneurotic Edema cyclobenzaprine HCl [From Flexeril] Allergy (Verified 11/03/18 15:21) eyes swell, SOB ibuprofen [Ibuprofen] Allergy (Verified 11/03/18 15:21) eyes swell, SOB naproxen [Naproxen] Allergy (Verified 11/03/18 15:21) eyes swell, SOB eggs Adverse Reaction (Intermediate, Uncoded 11/03/18 15:21) Hives Past Medical History - General Information source: Patient - Social History Smoking Status: Never Smoker Chew tobacco use (# tins/day): No Frequency of alcohol use: Rare Drug Abuse: None Family History: Reviewed & Not Pertinent Patient has suicidal ideation: No Patient has homicidal ideation: No - Past Medical History Cardiac Medical History: Reports: Hx Hypercholesterolemia, Hx Hypertension Denies: Hx Coronary Artery Disease, Hx Heart Attack Pulmonary Medical History: Denies: Hx Asthma, Hx Bronchitis, Hx COPD, Hx Pneumonia, Hx Tuberculosis Neurological Medical History: Denies: Hx Cerebrovascular Accident, Hx Seizures Endocrine Medical History: Reports: Hx Diabetes Mellitus Type 2 Renal/ Medical History: Denies: Hx Peritoneal Dialysis Musculoskeletal Medical History: Denies Hx Arthritis Psychiatric Medical History: Reports: Hx Bipolar Disorder, Hx Depression Past Surgical History: Reports: Hx Orthopedic Surgery - right thigh, right hand - Immunizations Immunizations up to date: Yes Hx Diphtheria, Pertussis, Tetanus Vaccination: Yes Review of Systems - Review of Systems Notes: Constitutional: denies: Chills, Diaphoresis, Fever, Malaise, Weakness EENT: denies: Eye discharge, Blurred vision, Tearing, Double vision, Nose congestion, Nose discharge, Throat swelling, Mouth pain Cardiovascular: denies: Palpitations, Heart racing, Orthopnea, Dyspnea, Chest pain Respiratory: denies: Cough, Hurts to breathe, Wheezing, Shortness of breath Gastrointestinal: Hiccups, abdominal pain, vomiting Genitourinary: denies: Burning, Dysuria, Discharge, Frequency, Flank pain, Hematuria Musculoskeletal: denies: Joint pain, Joint swelling, Muscle pain, Muscle stiffness, back pain Hematologic/Lymphatic: denies: Anemia, Easy bleeding, Easy bruising, Blood clots Neurological/Psychological: denies: Confusion, Dementia, Depression, Loss of consciousness Skin: No lesions, no masses, no skin breakdown, no abscesses Physical Exam - Vital signs Vitals: Temp Pulse Resp BP Pulse Ox 99.5 F 108 H 16 166/110 H 97 11/03/18 15:23 11/03/18 15:23 11/03/18 15:23 11/03/18 15:23 11/03/18 15:23 Interpretation: Normal - General General appearance: Appears well, Alert - HEENT Head: Normocephalic, Atraumatic Eyes: Normal Pupils: PERRL - Respiratory Respiratory status: No respiratory distress Chest status: Nontender Breath sounds: Normal Chest palpation: Normal - Cardiovascular Rhythm: Regular Heart sounds: Normal auscultation Murmur: No - Abdominal Inspection: Normal Distension: No distension Bowel sounds: Normal Tenderness: Tender - Tenderness in the epigastric region Organomegaly: No organomegaly Notes: Intractable hiccups - Rectal Stool: Heme positive Hemorrhoids: None Prostate: Normal - Back Back: Normal, Nontender - Extremities General upper extremity: Normal inspection, Nontender, Normal color, Normal ROM, Normal temperature General lower extremity: Normal inspection, Nontender, Normal color, Normal ROM, Normal temperature, Normal weight bearing. No: Candice's sign - Neurological Neuro grossly intact: Yes Cognition: Normal Orientation: AAOx4 [place] Coma Scale Eye Opening: Spontaneous [place] Coma Scale Verbal: Oriented [place] Coma Scale Motor: Obeys Commands Vinnie Coma Scale Total: 15 Speech: Normal Motor strength normal: LUE, RUE, LLE, RLE Sensory: Normal - Psychological Associated symptoms: Normal affect, Normal mood - Skin Skin Temperature: Warm Skin Moisture: Dry Skin Color: Normal Course - Re-evaluation Re-evalutation: 11/03/18 19:53 Surgery was paged after initial evaluation. Surgeon recommends CT scan 11/03/18 21:50 CT scan does not reveal anything significant. Labs are a bit off. Blood sugar remains high. Potassium elevated at 5.8. Patient has been hydrated. Slight elevated WBC count. Feeling better but symptoms are coming back. Uncomfortable discharging patient at this time due to the upper GI bleed concerns. Surgery has been reconsulted and he will evaluate patient. Will talk to the medicine team about admitting him. Patient is on Protonix drip. IV fluids. Carafate. Awaiting consult with medicine for admit. 11/03/18 22:16 Dr. Harrell with medicine team is here at this time. Will admit at this time in stable condition. Surgery has seen and will consult. 11/03/18 22:16 Abdomen/Pelvis CT 11/03/18 00:00 IMPRESSION: There is a small hiatal hernia. Posterior pulmonary atelectasis and probable edema in the anterior subcutaneous fat. No other clear etiology for acute symptoms. Chest X-Ray 11/03/18 15:50 IMPRESSION: NO ACUTE FINDINGS. Laboratory 11/03/18 11/03/18 11/03/18 16:13 16:13 16:23 WBC 13.7 H RBC 5.71 H Hgb 16.2 Hct 47.0 MCV 82 MCH 28.3 MCHC 34.4 RDW 15.0 H Plt Count 300 Seg Neutrophils % 70.6 Lymphocytes % 20.9 Monocytes % 7.1 Eosinophils % 0.3 Basophils % 1.1 Absolute Neutrophils 9.7 H Absolute Lymphocytes 2.9 Absolute Monocytes 1.0 Absolute Eosinophils 0.0 Absolute Basophils 0.1 VBG pH VBG pCO2 VBG HCO3 VBG Base Excess Sodium 135.1 L Potassium 5.8 H Chloride 93 L Carbon Dioxide 29 Anion Gap 13 BUN 23 H Creatinine 1.22 Est GFR ( Amer) > 60 Est GFR (Non-Af Amer) > 60 Glucose 416 H* POC Glucose Lactic Acid Calcium 10.8 H Total Bilirubin 0.5 Direct Bilirubin 0.2 Neonat Total Bilirubin Not Reportable Neonat Direct Bilirubin Not Reportable Neonat Indirect Bili Not Reportable AST 55 ALT 22 Alkaline Phosphatase 128 H Total Protein 8.8 H Albumin 4.6 Lipase 313.4 H Urine Color Urine Appearance Urine pH Ur Specific [place] Urine Protein Urine Glucose (UA) Urine Ketones Urine Blood Urine Nitrite Urine Bilirubin Urine Urobilinogen Ur Leukocyte Esterase Urine WBC (Auto) Urine RBC (Auto) U Hyaline Cast (Auto) Squamous Epi Cells Auto Urine Mucus (Auto) Urine Ascorbic Acid POC Stool Occult Blood Blood Type A POSITIVE Antibody Screen NEGATIVE 11/03/18 11/03/18 11/03/18 17:42 17:52 19:05 WBC RBC Hgb Hct MCV MCH MCHC RDW Plt Count Seg Neutrophils % Lymphocytes % Monocytes % Eosinophils % Basophils % Absolute Neutrophils Absolute Lymphocytes Absolute Monocytes Absolute Eosinophils Absolute Basophils VBG pH VBG pCO2 VBG HCO3 VBG Base Excess Sodium Potassium Chloride Carbon Dioxide Anion Gap BUN Creatinine Est GFR ( Amer) Est GFR (Non-Af Amer) Glucose POC Glucose Lactic Acid 1.0 Calcium Total Bilirubin Direct Bilirubin Neonat Total Bilirubin Neonat Direct Bilirubin Neonat Indirect Bili AST ALT Alkaline Phosphatase Total Protein Albumin Lipase Urine Color YELLOW Urine Appearance CLEAR Urine pH 6.0 Ur Specific [place] 1.026 Urine Protein >=500 H Urine Glucose (UA) >=500 H Urine Ketones 20 H Urine Blood NEGATIVE Urine Nitrite NEGATIVE Urine Bilirubin NEGATIVE Urine Urobilinogen NEGATIVE Ur Leukocyte Esterase NEGATIVE Urine WBC (Auto) 2 Urine RBC (Auto) 3 U Hyaline Cast (Auto) 3 Squamous Epi Cells Auto <1 Urine Mucus (Auto) RARE Urine Ascorbic Acid NEGATIVE POC Stool Occult Blood POSITIVE Blood Type Antibody Screen 11/03/18 11/03/18 19:05 19:40 WBC RBC Hgb Hct MCV MCH MCHC RDW Plt Count Seg Neutrophils % Lymphocytes % Monocytes % Eosinophils % Basophils % Absolute Neutrophils Absolute Lymphocytes Absolute Monocytes Absolute Eosinophils Absolute Basophils VBG pH 7.33 VBG pCO2 58.0 VBG HCO3 29.6 VBG Base Excess 2.1 Sodium Potassium Chloride Carbon Dioxide Anion Gap BUN Creatinine Est GFR ( Amer) Est GFR (Non-Af Amer) Glucose POC Glucose 349 H Lactic Acid Calcium Total Bilirubin Direct Bilirubin Neonat Total Bilirubin Neonat Direct Bilirubin Neonat Indirect Bili AST ALT Alkaline Phosphatase Total Protein Albumin Lipase Urine Color Urine Appearance Urine pH Ur Specific [place] Urine Protein Urine Glucose (UA) Urine Ketones Urine Blood Urine Nitrite Urine Bilirubin Urine Urobilinogen Ur Leukocyte Esterase Urine WBC (Auto) Urine RBC (Auto) U Hyaline Cast (Auto) Squamous Epi Cells Auto Urine Mucus (Auto) Urine Ascorbic Acid POC Stool Occult Blood Blood Type Antibody Screen - Vital Signs Vital signs: Temp Pulse Resp BP Pulse Ox 99.5 F 108 H 16 166/110 H 97 11/03/18 15:23 11/03/18 15:23 11/03/18 15:23 11/03/18 15:23 11/03/18 15:23 - Laboratory Result Diagrams: 11/03/18 16:13 11/03/18 16:13 Laboratory results interpreted by me: 11/03/18 11/03/18 11/03/18 16:13 16:13 17:52 WBC 13.7 H RBC 5.71 H RDW 15.0 H Absolute Neutrophils 9.7 H Sodium 135.1 L Potassium 5.8 H Chloride 93 L BUN 23 H Glucose 416 H* POC Glucose Calcium 10.8 H Alkaline Phosphatase 128 H Total Protein 8.8 H Lipase 313.4 H Urine Protein >=500 H Urine Glucose (UA) >=500 H Urine Ketones 20 H 11/03/18 19:40 WBC RBC RDW Absolute Neutrophils Sodium Potassium Chloride BUN Glucose POC Glucose 349 H Calcium Alkaline Phosphatase Total Protein Lipase Urine Protein Urine Glucose (UA) Urine Ketones Discharge - Discharge Clinical Impression: Dehydration Acute gastritis with bleeding Qualifiers: Gastritis type: unspecified gastritis Qualified Code(s): K29.01 - Acute gastritis with bleeding Hyperglycemia due to type 2 diabetes mellitus Qualifiers: Diabetes mellitus oysterman insulin use: with oysterman use Qualified Code(s): E11.65 - Type 2 diabetes mellitus with hyperglycemia; 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
[2018-11-03 18:07] LABS: APPEARANCE,URINE CLEAR; BILIRUBIN,URINE NEGATIVE (NEGATIVE); COLOR,URINE YELLOW; GLUCOSE, URINE >=500 mg/dL (NEGATIVE); KETONES,URINE 20 mg/dL (NEGATIVE); LEUKOCYTE ESTERASE,URINE NEGATIVE (NEGATIVE); NITRITE,URINE NEGATIVE (NEGATIVE); PROTEIN,URINE >=500 mg/dL (NEGATIVE); URINE SPECIFIC GRAVITY 1.026; UROBILINOGEN,URINE NEGATIVE mg/dL (<2.0)
[2018-11-03] MEDS ORDERED: NORMAL SALINE 1000 ML 1,000 ML IV ONE (18:14)
[2018-11-03 19:13] LABS: VENOUS BLOOD BASE EXCESS 2.1 mmol/L; VENOUS BLOOD HCO3 29.6 mmol/L (20-32); VENOUS BLOOD PH 7.33 (7.30-7.42)
[2018-11-03] MEDS ORDERED: INSULIN REG, HUMAN 100 UNIT/ML 3 ML VIAL (PYX) SUBCUT ONE (19:52)
--- NOTE | 2018-11-03 20:54 | EKG REPORT ---
SEVERITY:- ABNORMAL ECG - SINUS RHYTHM ABNRM R PROG, CONSIDER ASMI OR LEAD PLACEMENT : Confirmed by: Sabrina Mason MD 03-Nov-2018 20:54:14
--- NOTE | 2018-11-03 21:29 | RADIOLOGY REPORT (SQ) ---
EXAM DESCRIPTION: CT ABDOMEN PELVIS WITH IV CONTRAST COMPLETED DATE/TME: 11/03/2018 00:00 CLINICAL HISTORY: 48 years, Male, epigastric pain COMPARISON: None. EXAM DESCRIPTION: CLINICAL HISTORY: epigastric pain COMPARISON: None Available TECHNIQUE: Contiguous axial images of the abdomen and pelvis were obtained after the administration of intravenous contrast followed by reconstruction images.This exam was performed according to our departmental dose-optimization program, which includes automated exposure control, adjustment of the mA and/or kV according to patient size and/or use of iterative reconstruction technique. FINDINGS: There is a small hiatal hernia. There is atelectasis in each posterior lung. Motion limits detail. No renal collecting system obstruction is seen on either side. There is soft tissue stranding of the anterior subcutaneous fat that may reflect mild edema. The liver, spleen, pancreas and kidneys are within normal limits. There is no hydronephrosis. The gallbladder is unremarkable. Adrenal glands are within normal limits. Aorta is normal in caliber and tapering. No significant free fluid. No free air. No bowel obstruction. There is no stranding of the mesenteric fat. The appendix appears normal. No evidence of periappendiceal inflammation. IMPRESSION: There is a small hiatal hernia. Posterior pulmonary atelectasis and probable edema in the anterior subcutaneous fat. No other clear etiology for acute symptoms.
[2018-11-03] MEDS ORDERED: FAMOTIDINE INJ/PF 20 MG/2 ML SDV IV ONE (21:48)
[2018-11-03] MEDS ORDERED: PANTOPRAZOLE SODIUM 40 MG VIAL IV PRN (21:49)
[2018-11-03] MEDS ORDERED: SUCRALFATE SUSP 1 GM/10 ML UDCUP PO ONE (21:49)
[2018-11-03 22:40] LABS: ANION GAP 9 (5-19); BLOOD UREA NITROGEN 20 mg/dL (7-20); CALCIUM 8.9 mg/dL (8.4-10.2); CARBON DIOXIDE 28 mmol/L (22-30); CHLORIDE 97 mmol/L (98-107); GLUCOSE 267 mg/dL (75-110); SODIUM 133.8 mmol/L (137-145)
--- NOTE | 2018-11-03 22:46 | PDOC CONSULTATION ---
Consultation Consult Date: 11/03/18 Consult reason:: Hematemesis, GERD, Hiatal hernia History of Present Illness Admission Date/PCP: [facility] History of Present Illness: JOMAR OLIVO is a 48 year old male with a 10 yr hx of GERD controlled by the use of OTC omeprazole. He admits to the moderately heavy use of hard alcohol (gin) 3 times a week and to drink the equivalent of about 1 cup of coffee of gin each time. About 2 weeks ago, the patient started c/o worsening of epigastric pain, hemetemesis, retching with vomiting, and symptoms of GERD. He is not specific about the recent use of PPI. He is type 2 diabetic and has hypertension. His blood work obtained during the ED presentation demonstrated electrolyte abnormalities (hyponatremia and hyperkalemia), hyperglycemia, elevated lipase, and hemoconcentration. Past Medical History Cardiac Medical History: Reports: Hyperlipidema, Hypertension Denies: Coronary Artery Disease, Myocardial Infarction Pulmonary Medical History: Denies: Asthma, Bronchitis, Chronic Obstructive Pulmonary Disease (COPD), Pneumonia, Tuberculosis Neurological Medical History: Denies: Seizures Endocrine Medical History: Reports: Diabetes Mellitus Type 2 Musculoskeltal Medical History: Denies: Arthritis Psychiatric Medical History: Reports: Bipolar Disorder, Depression Hematology: Denies: Anemia Past Surgical History Past Surgical History: Reports: Orthopedic Surgery - right thigh, right hand Social History Smoking Status: Never Smoker Frequency of Alcohol Use: None Hx Recreational Drug Use: No Drugs: None Hx Prescription Drug Abuse: No Family History Family History: Reviewed & Not Pertinent Parental Family History Reviewed: Yes Children Family History Reviewed: No Sibling(s) Family History Reviewed.: No Medication/Allergy Home Medications: Insulin Detemir [Levemir Insulin 100 units/mL] 80 unit SUBCUT [id number] 05/12/13 Insulin Aspart [Novolog Insulin (Aspart) 100 unit/mL] 15 unit SUBCUT AC 06/23/13 Omeprazole 20 mg PO DAILY 06/23/13 Amitriptyline HCl [Elavil 100 mg Tablet] 100 mg PO QHS 02/29/16 Insulin Detemir [Levemir Insulin 100 units/mL] 80 unit SUBCUT PCSUPPER 03/01/16 Losartan Potassium 10 mg PO DAILY 05/18/17 Pregabalin [Lyrica] 300 mg PO TID 09/20/17 Allergies/Adverse Reactions: ROSS Inhibitors Allergy (Severe, Verified 11/03/18 15:21) Angioneurotic Edema ARB-Angiotensin Receptor Antagonist Allergy (Severe, Verified 11/03/18 15:21) Angioneurotic Edema cyclobenzaprine HCl [From Flexeril] Allergy (Verified 11/03/18 15:21) eyes swell, SOB ibuprofen [Ibuprofen] Allergy (Verified 11/03/18 15:21) eyes swell, SOB naproxen [Naproxen] Allergy (Verified 11/03/18 15:21) eyes swell, SOB eggs Adverse Reaction (Intermediate, Uncoded 11/03/18 15:21) Hives Physical Exam Vital Signs: Temp Pulse Resp BP Pulse Ox 99.5 F 108 H 16 166/110 H 97 11/03/18 15:23 11/03/18 15:23 11/03/18 15:23 11/03/18 15:23 11/03/18 15:23 Intake & Output 11/02/18 11/03/18 11/04/18 06:59 06:59 06:59 Intake Total 1999 Balance 1999 Weight 91.7 kg General appearance: PRESENT: mild distress Head exam: PRESENT: atraumatic Eye exam: PRESENT: EOMI Mouth exam: PRESENT: moist, neck supple Respiratory exam: PRESENT: clear to auscultation rian Cardiovascular exam: PRESENT: RRR GI/Abdominal exam: PRESENT: normal bowel sounds, soft, tenderness - in the epigastrium Extremities exam: PRESENT: full ROM Musculoskeletal exam: PRESENT: full ROM Psychiatric exam: PRESENT: appropriate affect Skin exam: PRESENT: warm Results Laboratory Results: 11/03/18 16:13 11/03/18 11/03/18 11/03/18 16:13 16:13 16:23 WBC 13.7 H RBC 5.71 H Hgb 16.2 Hct 47.0 MCV 82 MCH 28.3 MCHC 34.4 RDW 15.0 H Plt Count 300 Seg Neutrophils % 70.6 Lymphocytes % 20.9 Monocytes % 7.1 Eosinophils % 0.3 Basophils % 1.1 Absolute Neutrophils 9.7 H Absolute Lymphocytes 2.9 Absolute Monocytes 1.0 Absolute Eosinophils 0.0 Absolute Basophils 0.1 VBG pH VBG pCO2 VBG HCO3 VBG Base Excess Sodium 135.1 L Potassium 5.8 H Chloride 93 L Carbon Dioxide 29 Anion Gap 13 BUN 23 H Creatinine 1.22 Est GFR ( Amer) > 60 Est GFR (Non-Af Amer) > 60 Glucose 416 H* Lactic Acid Calcium 10.8 H Total Bilirubin 0.5 AST 55 ALT 22 Alkaline Phosphatase 128 H Total Protein 8.8 H Albumin 4.6 Lipase 313.4 H Urine Color Urine Appearance Urine pH Ur Specific [place] Urine Protein Urine Glucose (UA) Urine Ketones Urine Blood Urine Nitrite Ur Leukocyte Esterase Urine WBC (Auto) Urine RBC (Auto) Blood Type A POSITIVE Antibody Screen NEGATIVE 11/03/18 11/03/18 11/03/18 17:52 19:05 19:05 WBC RBC Hgb Hct MCV MCH MCHC RDW Plt Count Seg Neutrophils % Lymphocytes % Monocytes % Eosinophils % Basophils % Absolute Neutrophils Absolute Lymphocytes Absolute Monocytes Absolute Eosinophils Absolute Basophils VBG pH 7.33 VBG pCO2 58.0 VBG HCO3 29.6 VBG Base Excess 2.1 Sodium Potassium Chloride Carbon Dioxide Anion Gap BUN Creatinine Est GFR ( Amer) Est GFR (Non-Af Amer) Glucose Lactic Acid 1.0 Calcium Total Bilirubin AST ALT Alkaline Phosphatase Total Protein Albumin Lipase Urine Color YELLOW Urine Appearance CLEAR Urine pH 6.0 Ur Specific [place] 1.026 Urine Protein >=500 H Urine Glucose (UA) >=500 H Urine Ketones 20 H Urine Blood NEGATIVE Urine Nitrite NEGATIVE Ur Leukocyte Esterase NEGATIVE Urine WBC (Auto) 2 Urine RBC (Auto) 3 Blood Type Antibody Screen Impressions: Abdomen/Pelvis CT 11/03/18 00:00 IMPRESSION: There is a small hiatal hernia. Posterior pulmonary atelectasis and probable edema in the anterior subcutaneous fat. No other clear etiology for acute symptoms. Chest X-Ray 11/03/18 15:50 IMPRESSION: NO ACUTE FINDINGS. Assessment & Plan - Plan Summary Plan Summary: A/ Epigastric pain, hematemsis, retching x 2weeks roller helper hx of GERD controlled with PPI Heavy use of hard alcohol Epigastric pain on exam Elevated lipase as per alcoholic pancreatitis Electrolyte abnormalities (hyponatremia with hyperkalemia) secondary to hyperglycemia; this latter can be due to either poorly controlled diabetes mellitus or to pancreatic endocrine failure Hiatal hernia on CT scan Hematemesis secondary to either gastritis or a small Mellory-Rosales tear following retching and vomiting induced by the pancreatitic process; however, the possibility of PUD should be entertained Hemoconcentration P/ Keep NPO IVF, aggressive hydration (NS 150 ML/hr after 1 L bolus) Protonix drip Carafate po Maalox 30 mL po q6 Minimize narcotics Once the patient is metabolically settled, an EGD could be done.
[2018-11-03 22:52] LABS: POTASSIUM 4.3 mmol/L (3.6-5.0)
[2018-11-03] MEDS ORDERED: MAG HYDROX/AL HYDROX/SIMETH SUSP 30 ML UDCUP PO SCH (23:00)
[2018-11-03] MEDS ORDERED: CHLORPROMAZINE HCL INJ 25 MG/1 ML AMPULE IV PRN (23:37)
[2018-11-03] MEDS ORDERED: NALBUPHINE HCL INJ 10 MG/1 ML AMPULE IV PRN (23:37)
[2018-11-03] MEDS ORDERED: DEXTROSE 40% GEL 15 GM TUBE PO PRN ×2 (23:41)
[2018-11-03] MEDS ORDERED: DEXTROSE 50%-WATER 25 GM/50 ML DISP.SYRIN IV PRN ×2 (23:41)
[2018-11-03] MEDS ORDERED: GLUCAGON,HUMAN RECOMB 1 MG INJ IM PRN (23:41)
[2018-11-04] MEDS ORDERED: CHLORPROMAZINE HCL INJ 25 MG/1 ML AMPULE IV ONE (00:10)
[2018-11-04] MEDS: METOCLOPRAMIDE HCL INJ/PF 10 MG/2 ML SDV IV SCH ×5 (01:26→23:30)
[2018-11-04] MEDS: INSULIN REG, HUMAN 100 UNIT/ML 3 ML VIAL (PYX) SUBCUT PRN (01:35)
[2018-11-04] MEDS ORDERED: SUCRALFATE 1 GM TABLET PO SCH (03:00)
--- NOTE | 2018-11-04 03:57 | PDOC H&P ---
History of Present Illness Admission Date/PCP: 11/03/2018 [facility] Patient complains of: Hematemesis History of Present Illness: JOMAR OLIVO is a 48 year old male who presented to the emergency room with a chief complaint of hematemesis. He admits that for the last 2 weeks he has been having abdominal pain and occasional episodes of vomiting however over the last 48 hours his vomiting has become intractable with persistent hiccups as well as numerous spontaneous emesis containing dark red blood clots and after several episodes of emesis and retching some bright red blood. His constant, nonradiating, intense burning and aching deep epigastric abdominal pain has become exquisitely severe and he is unable to tolerate any oral intake due to increased pain and vomiting/retching/hiccups. He denies prior similar episodes and has not identified any other aggravating or ameliorating factors for his abdominal pain. In the emergency room he was found to have moderate hyperkalemia with hyperglycemia and guaiac positive emesis with a mildly increased lipase level. He was subsequently admitted to the hospital for further evaluation and treatment of his upper GI bleeding. Past Medical History Cardiac Medical History: Reports: Hyperlipidema, Hypertension Denies: Coronary Artery Disease, Myocardial Infarction Pulmonary Medical History: Denies: Asthma, Bronchitis, Chronic Obstructive Pulmonary Disease (COPD), Pneumonia, Tuberculosis EENT Medical History: Denies: Cataracts Neurological Medical History: Denies: Hemorrhagic CVA, Ischemic CVA, Seizures Endocrine Medical History: Reports: Diabetes Mellitus Type 2 Denies: Hyperthyroidism, Hypothyroidism Renal/ Medical History: Denies: Chronic Kidney Disease, Nephrolithiasis Malignancy Medical History: Reports: None GI Medical History: Denies: Cirrhosis, Hepatitis Musculoskeltal Medical History: Denies: Arthritis Skin Medical History: Denies: Eczema, Psoriasis Psychiatric Medical History: Reports: Bipolar Disorder, Depression, Other - Alcohol abuse drinking approximately 4 ounces of gin 2 or 3 times per week Denies: Alcohol Dependency, Substance Abuse, Tobacco Dependency Traumatic Medical History: Reports: None Hematology: Denies: Anemia, Bleeding Tendencies Infectious Medical History: Reports: None Past Surgical History Past Surgical History: Reports: Orthopedic Surgery - right thigh, right hand Social History Information Source: Patient Lives with: Alone Smoking Status: Never Smoker Frequency of Alcohol Use: Heavy Amount of Alcoholic Beverages Per Day: Approximately 4 ounces of gin 2-4 times per week Hx Recreational Drug Use: No Drugs: None Hx Prescription Drug Abuse: No - Advance Directive Resuscitation Status: Full Code Surrogate healthcare decision maker:: Mother Family History Family History: DM, Hypertension Parental Family History Reviewed: Yes Children Family History Reviewed: No Sibling(s) Family History Reviewed.: Yes Medication/Allergy Home Medications: Insulin Detemir [Levemir Insulin 100 units/mL] 80 unit SUBCUT [id number] 05/12/13 Insulin Aspart [Novolog Insulin (Aspart) 100 unit/mL] 15 unit SUBCUT AC 06/23/13 Omeprazole 20 mg PO DAILY 06/23/13 Amitriptyline HCl [Elavil 100 mg Tablet] 100 mg PO QHS 02/29/16 Insulin Detemir [Levemir Insulin 100 units/mL] 80 unit SUBCUT PCSUPPER 03/01/16 Losartan Potassium 10 mg PO DAILY 05/18/17 Pregabalin [Lyrica] 300 mg PO TID 05/18/17 Allergies/Adverse Reactions: ROSS Inhibitors Allergy (Severe, Verified 11/03/18 15:21) Angioneurotic Edema ARB-Angiotensin Receptor Antagonist Allergy (Severe, Verified 11/03/18 15:21) Angioneurotic Edema cyclobenzaprine HCl [From Flexeril] Allergy (Verified 11/03/18 15:21) eyes swell, SOB ibuprofen [Ibuprofen] Allergy (Verified 11/03/18 15:21) eyes swell, SOB naproxen [Naproxen] Allergy (Verified 11/03/18 15:21) eyes swell, SOB eggs Adverse Reaction (Intermediate, Uncoded 11/03/18 15:21) Hives Review of Systems Constitutional: PRESENT: as per HPI, anorexia. ABSENT: chills, fever(s) Eyes: ABSENT: visual disturbances, other - Eye pain Ears: ABSENT: hearing changes, other - Ear pain Nose, Mouth, and Throat: ABSENT: mouth pain, sore throat Cardiovascular: ABSENT: chest pain, dyspnea on exertion, edema, orthropnea, palpitations Respiratory: ABSENT: cough, dyspnea Gastrointestinal: PRESENT: abdominal pain, hematemesis, nausea, vomiting, other - Pickups. ABSENT: coffee ground emesis, constipation, diarrhea, hematochezia, melena Genitourinary: ABSENT: dysuria, hematuria Musculoskeletal: ABSENT: deformity, joint swelling Integumentary: ABSENT: pruritus, rash Neurological: ABSENT: confusion, convulsions, focal weakness, memory loss Psychiatric: ABSENT: anxiety, depression Endocrine: ABSENT: cold intolerance, heat intolerance Hematologic/Lymphatic: ABSENT: easy bleeding, easy bruising Physical Exam Vital Signs: Temp Pulse Resp BP Pulse Ox 99.5 F 108 H 16 166/110 H 97 11/03/18 15:23 11/03/18 15:23 11/03/18 15:23 11/03/18 15:23 11/03/18 15:23 Intake & Output 11/01/18 11/02/18 11/03/18 23:59 23:59 23:59 Intake Total 1999 Balance 1999 Weight 91.7 kg General appearance: PRESENT: cooperative, severe distress - Due to persistent hiccups Head exam: PRESENT: atraumatic, normocephalic Eye exam: PRESENT: conjunctiva pink, EOMI. ABSENT: scleral icterus Ear exam: PRESENT: normal external ear exam. ABSENT: bleeding, drainage Mouth exam: PRESENT: dry mucosa, neck supple Neck exam: ABSENT: thyromegaly, tracheal deviation Respiratory exam: PRESENT: clear to auscultation rian, symmetrical, unlabored Cardiovascular exam: PRESENT: RRR. ABSENT: clicks, gallop, rubs Pulses: PRESENT: normal radial pulses, normal dorsalis pedis pul Vascular exam: PRESENT: normal capillary refill. ABSENT: pallor GI/Abdominal exam: PRESENT: guarding - Voluntary guarding for epigastric palpation, normal bowel sounds, tenderness - Severe tenderness to palpation in the epigastric region Rectal exam: PRESENT: deferred Extremities exam: ABSENT: joint swelling, pedal edema Musculoskeletal exam: PRESENT: full ROM, normal inspection Neurological exam: PRESENT: alert, oriented to person, oriented to place, oriented to time, oriented to situation, CN II-XII grossly intact. ABSENT: motor sensory deficit Psychiatric exam: PRESENT: appropriate affect, normal mood Skin exam: PRESENT: dry, intact, warm. ABSENT: jaundice, rash, urticaria Results Laboratory Results: 11/03/18 16:13 11/03/18 21:58 11/03/18 11/03/18 11/03/18 16:13 16:13 16:23 WBC 13.7 H RBC 5.71 H Hgb 16.2 Hct 47.0 MCV 82 MCH 28.3 MCHC 34.4 RDW 15.0 H Plt Count 300 Seg Neutrophils % 70.6 Lymphocytes % 20.9 Monocytes % 7.1 Eosinophils % 0.3 Basophils % 1.1 Absolute Neutrophils 9.7 H Absolute Lymphocytes 2.9 Absolute Monocytes 1.0 Absolute Eosinophils 0.0 Absolute Basophils 0.1 VBG pH VBG pCO2 VBG HCO3 VBG Base Excess Sodium 135.1 L Potassium 5.8 H Chloride 93 L Carbon Dioxide 29 Anion Gap 13 BUN 23 H Creatinine 1.22 Est GFR ( Amer) > 60 Est GFR (Non-Af Amer) > 60 Glucose 416 H* Lactic Acid Calcium 10.8 H Total Bilirubin 0.5 AST 55 ALT 22 Alkaline Phosphatase 128 H Total Protein 8.8 H Albumin 4.6 Lipase 313.4 H Urine Color Urine Appearance Urine pH Ur Specific [place] Urine Protein Urine Glucose (UA) Urine Ketones Urine Blood Urine Nitrite Ur Leukocyte Esterase Urine WBC (Auto) Urine RBC (Auto) Blood Type A POSITIVE Antibody Screen NEGATIVE 11/03/18 11/03/18 11/03/18 17:52 19:05 19:05 WBC RBC Hgb Hct MCV MCH MCHC RDW Plt Count Seg Neutrophils % Lymphocytes % Monocytes % Eosinophils % Basophils % Absolute Neutrophils Absolute Lymphocytes Absolute Monocytes Absolute Eosinophils Absolute Basophils VBG pH 7.33 VBG pCO2 58.0 VBG HCO3 29.6 VBG Base Excess 2.1 Sodium Potassium Chloride Carbon Dioxide Anion Gap BUN Creatinine Est GFR ( Amer) Est GFR (Non-Af Amer) Glucose Lactic Acid 1.0 Calcium Total Bilirubin AST ALT Alkaline Phosphatase Total Protein Albumin Lipase Urine Color YELLOW Urine Appearance CLEAR Urine pH 6.0 Ur Specific [place] 1.026 Urine Protein >=500 H Urine Glucose (UA) >=500 H Urine Ketones 20 H Urine Blood NEGATIVE Urine Nitrite NEGATIVE Ur Leukocyte Esterase NEGATIVE Urine WBC (Auto) 2 Urine RBC (Auto) 3 Blood Type Antibody Screen 11/03/18 21:58 WBC RBC Hgb Hct MCV MCH MCHC RDW Plt Count Seg Neutrophils % Lymphocytes % Monocytes % Eosinophils % Basophils % Absolute Neutrophils Absolute Lymphocytes Absolute Monocytes Absolute Eosinophils Absolute Basophils VBG pH VBG pCO2 VBG HCO3 VBG Base Excess Sodium 133.8 L Potassium 4.3 D Chloride 97 L Carbon Dioxide 28 Anion Gap 9 BUN 20 Creatinine 1.05 Est GFR ( Amer) > 60 Est GFR (Non-Af Amer) > 60 Glucose 267 H Lactic Acid Calcium 8.9 Total Bilirubin AST ALT Alkaline Phosphatase Total Protein Albumin Lipase Urine Color Urine Appearance Urine pH Ur Specific [place] Urine Protein Urine Glucose (UA) Urine Ketones Urine Blood Urine Nitrite Ur Leukocyte Esterase Urine WBC (Auto) Urine RBC (Auto) Blood Type Antibody Screen 11/03/18 21:58 Troponin I < 0.012 Impressions: Abdomen/Pelvis CT 11/03/18 00:00 IMPRESSION: There is a small hiatal hernia. Posterior pulmonary atelectasis and probable edema in the anterior subcutaneous fat. No other clear etiology for acute symptoms. Chest X-Ray 11/03/18 15:50 IMPRESSION: NO ACUTE FINDINGS. Assessment & Plan - Diagnosis (1) Acute pancreatitis Qualifiers: Pancreatitis type: unspecified pancreatitis type Acute pancreatitis complication: unspecified Qualified Code(s): K85.90 - Acute pancreatitis without necrosis or infection, unspecified Is this a current diagnosis for this admission?: Yes Plan: Patient will have serial amylase and lipase evaluations performed. Additionally he will have serial CBC and metabolic profile as well as a hemoglobin A1c and a lipid profile and a thyroid profile obtained. Patient's pancreatitis pain will be treated with Nubain 10 mg IV every 3 hours as needed. He will additionally be given IV fluids and other supportive and symptomatic treatment as approp riapaige. (2) Intractable hiccoughs Is this a current diagnosis for this admission?: Yes Plan: Patient will be treated with IV Thorazine 25 mg every 6 hours as needed for intractable nausea/vomiting/hiccups. (3) Upper gastrointestinal hemorrhage Is this a current diagnosis for this admission?: Yes Plan: Patient will be kept n.p.o. with the exception of ice chips and will be evaluated by surgery, in consultation, for possible EGD and intervention for bleeding if needed. His hemoglobin monitored with every 6 hours CBCs and transfusion will be undertaken if required. (4) Diabetes mellitus type 2 in nonobese Is this a current diagnosis for this admission?: Yes Plan: Diabetes will be managed with a sliding scale insulin on AC and at bedtime basis initially with additional management as required. Hemoglobin A1c will be obtained to assess prior therapeutic efficacy. - Time Time Spent: 30 to 50 Minutes Critical Time spent with patient: Less than 15 minutes Medications reviewed and adjusted accordingly: Yes Anticipated discharge: Home - Inpatient Certification Based on my medical assessment, after consideration of the patient's comorbidities, presenting symptoms, or acuity I expect that the services needed warrant INPATIENT care.: Yes I certify that my determination is in accordance with my understanding of Medicare's requirements for reasonable and necessary INPATIENT services [42 CFR 412.3e].: Yes Medical Necessity: Significant Comorbidiites Make Outpatient Treatment Too R isky, Need Close Monitoring Due to Risk of Patient Decompensation, Need For IV Fluids, Need For Continuous Telemetry Monitoring, Need for Pain Control, Need for Surgery, Risk of Complication if Not Cared For in Hospital
[2018-11-04] MEDS: NORMAL SALINE 1000 ML 1,000 ML IV PRN ×4 (05:38→21:50)
[2018-11-04 07:56] LABS: HEMATOCRIT 37.3 % (37.9-51.0); MEAN CORPUSCULAR HEMOGLOBIN 28.1 pg (27.0-33.4); MEAN CORPUSCULAR HGB CONC 34.3 g/dL (32.0-36.0); MEAN CORPUSCULAR VOLUME 82 fl (80-97); PLATELET COUNT 227 10^3/uL (150-450); RED BLOOD COUNT 4.55 10^6/uL (4.35-5.55); RED CELL DISTRIBUTION WIDTH 14.6 % (11.5-14.0); WHITE BLOOD COUNT 7.7 10^3/uL (4.0-10.5)
[2018-11-04 07:59] LABS: HEMOGLOBIN 12.8 g/dL (13.5-17.0)
[2018-11-04 08:13] LABS: ALANINE AMINOTRANSFERASE 31 U/L (21-72); ALBUMIN 2.9 g/dL (3.5-5.0); ALKALINE PHOSPHATASE 87 U/L (38-126); AMYLASE 79 U/L (30-110); ANION GAP 8 (5-19); ASPARTATE AMINO TRANSFERASE 19 U/L (17-59); BILIRUBIN,DIRECT 0.1 mg/dL (0.0-0.4); BILIRUBIN,TOTAL 0.3 mg/dL (0.2-1.3); BLOOD UREA NITROGEN 18 mg/dL (7-20); CALCIUM 8.6 mg/dL (8.4-10.2); CARBON DIOXIDE 28 mmol/L (22-30); CHLORIDE 100 mmol/L (98-107); CHOLESTEROL 161.15 mg/dL (0-200); GLUCOSE 183 mg/dL (75-110); LIPASE 55.4 U/L (23-300); POTASSIUM 4.3 mmol/L (3.6-5.0); SODIUM 136.1 mmol/L (137-145); TRIGLYCERIDES 153 mg/dL (<150)
[2018-11-04 08:25] LABS: DIRECT LDL 101 mg/dL (<100)
[2018-11-04 08:29] LABS: FREE T3 4.63 pg/mL (2.77-5.27); FREE T4 (FREE THYROXINE) 1.41 ng/dL (0.78-2.19); VLDL CHOLESTEROL 30.6 mg/dL (10-31)
[2018-11-04 08:43] LABS: THYROID STIMULATING HORMONE 3.34 uIU/mL (0.47-4.68)
[2018-11-04] MEDS: SUCRALFATE SUSP 1 GM/10 ML UDCUP PO SCH ×2 (10:14→12:03)
[2018-11-04] MEDS: PANTOPRAZOLE SODIUM 40 MG VIAL IV SCH ×2 (10:15→21:47)
[2018-11-04 12:37] LABS: APPEARANCE,URINE CLEAR; BILIRUBIN,URINE NEGATIVE (NEGATIVE); COLOR,URINE YELLOW; GLUCOSE, URINE >=500 mg/dL (NEGATIVE); KETONES,URINE TRACE mg/dL (NEGATIVE); LEUKOCYTE ESTERASE,URINE NEGATIVE (NEGATIVE); NITRITE,URINE NEGATIVE (NEGATIVE); PROTEIN,URINE 100 mg/dL (NEGATIVE); URINE SPECIFIC GRAVITY 1.016; UROBILINOGEN,URINE NEGATIVE mg/dL (<2.0)
--- NOTE | 2018-11-04 12:49 | PDOC PROGRESS REPORT ---
Subjective Progress Note for:: 11/04/18 Subjective:: patient reports no nausea/vomiting or hiccups; he still has some mild epigastric pain Reason For Visit: HEMATEMESIS Physical Exam Vital Signs: Temp Pulse Resp BP Pulse Ox 97.8 F 84 16 135/89 H 98 11/04/18 07:37 11/04/18 07:37 11/04/18 07:37 11/04/18 07:37 11/04/18 07:37 Intake & Output 11/03/18 11/04/18 11/05/18 06:59 06:59 07:59 Intake Total 2993 Balance 2993 Weight 93.7 kg General appearance: PRESENT: no acute distress Respiratory exam: PRESENT: clear to auscultation rian Cardiovascular exam: PRESENT: RRR GI/Abdominal exam: PRESENT: soft, tenderness - mild epigastric pain Results Laboratory Results: 11/04/18 06:46 11/04/18 06:46 11/03/18 11/03/18 11/03/18 16:13 16:13 16:23 WBC 13.7 H RBC 5.71 H Hgb 16.2 Hct 47.0 MCV 82 MCH 28.3 MCHC 34.4 RDW 15.0 H Plt Count 300 Seg Neutrophils % 70.6 Lymphocytes % 20.9 Monocytes % 7.1 Eosinophils % 0.3 Basophils % 1.1 Absolute Neutrophils 9.7 H Absolute Lymphocytes 2.9 Absolute Monocytes 1.0 Absolute Eosinophils 0.0 Absolute Basophils 0.1 VBG pH VBG pCO2 VBG HCO3 VBG Base Excess Sodium 135.1 L Potassium 5.8 H Chloride 93 L Carbon Dioxide 29 Anion Gap 13 BUN 23 H Creatinine 1.22 Est GFR ( Amer) > 60 Est GFR (Non-Af Amer) > 60 Glucose 416 H* Lactic Acid Calcium 10.8 H Magnesium Total Bilirubin 0.5 AST 55 ALT 22 Alkaline Phosphatase 128 H Total Protein 8.8 H Albumin 4.6 Triglycerides Cholesterol LDL Cholesterol Direct VLDL Cholesterol HDL Cholesterol Amylase Lipase 313.4 H TSH Free T4 Free T3 pg/mL Urine Color Urine Appearance Urine pH Ur Specific [place] Urine Protein Urine Glucose (UA) Urine Ketones Urine Blood Urine Nitrite Ur Leukocyte Esterase Urine WBC (Auto) Urine RBC (Auto) Blood Type A POSITIVE Antibody Screen NEGATIVE 11/03/18 11/03/18 11/03/18 17:52 19:05 19:05 WBC RBC Hgb Hct MCV MCH MCHC RDW Plt Count Seg Neutrophils % Lymphocytes % Monocytes % Eosinophils % Basophils % Absolute Neutrophils Absolute Lymphocytes Absolute Monocytes Absolute Eosinophils Absolute Basophils VBG pH 7.33 VBG pCO2 58.0 VBG HCO3 29.6 VBG Base Excess 2.1 Sodium Potassium Chloride Carbon Dioxide Anion Gap BUN Creatinine Est GFR ( Amer) Est GFR (Non-Af Amer) Glucose Lactic Acid 1.0 Calcium Magnesium Total Bilirubin AST ALT Alkaline Phosphatase Total Protein Albumin Triglycerides Cholesterol LDL Cholesterol Direct VLDL Cholesterol HDL Cholesterol Amylase Lipase TSH Free T4 Free T3 pg/mL Urine Color YELLOW Urine Appearance CLEAR Urine pH 6.0 Ur Specific [place] 1.026 Urine Protein >=500 H Urine Glucose (UA) >=500 H Urine Ketones 20 H Urine Blood NEGATIVE Urine Nitrite NEGATIVE Ur Leukocyte Esterase NEGATIVE Urine WBC (Auto) 2 Urine RBC (Auto) 3 Blood Type Antibody Screen 11/03/18 11/04/18 11/04/18 21:58 06:46 06:46 WBC 7.7 RBC 4.55 Hgb 12.8 L D Hct 37.3 L MCV 82 MCH 28.1 MCHC 34.3 RDW 14.6 H Plt Count 227 Seg Neutrophils % Lymphocytes % Monocytes % Eosinophils % Basophils % Absolute Neutrophils Absolute Lymphocytes Absolute Monocytes Absolute Eosinophils Absolute Basophils VBG pH VBG pCO2 VBG HCO3 VBG Base Excess Sodium 133.8 L 136.1 L Potassium 4.3 D 4.3 Chloride 97 L 100 Carbon Dioxide 28 28 Anion Gap 9 8 BUN 20 18 Creatinine 1.05 1.19 Est GFR ( Amer) > 60 > 60 Est GFR (Non-Af Amer) > 60 > 60 Glucose 267 H 183 H Lactic Acid Calcium 8.9 8.6 Magnesium 1.9 Total Bilirubin 0.3 AST 19 ALT 31 Alkaline Phosphatase 87 Total Protein 6.0 L Albumin 2.9 L Triglycerides 153 H Cholesterol 161.15 LDL Cholesterol Direct 101 H VLDL Cholesterol 30.6 HDL Cholesterol 35 L Amylase 79 Lipase 55.4 TSH Free T4 Free T3 pg/mL Urine Color Urine Appearance Urine pH Ur Specific [place] Urine Protein Urine Glucose (UA) Urine Ketones Urine Blood Urine Nitrite Ur Leukocyte Esterase Urine WBC (Auto) Urine RBC (Auto) Blood Type Antibody Screen 11/04/18 11/04/18 06:46 12:23 WBC RBC Hgb Hct MCV MCH MCHC RDW Plt Count Seg Neutrophils % Lymphocytes % Monocytes % Eosinophils % Basophils % Absolute Neutrophils Absolute Lymphocytes Absolute Monocytes Absolute Eosinophils Absolute Basophils VBG pH VBG pCO2 VBG HCO3 VBG Base Excess Sodium Potassium Chloride Carbon Dioxide Anion Gap BUN Creatinine Est GFR ( Amer) Est GFR (Non-Af Amer) Glucose Lactic Acid Calcium Magnesium Total Bilirubin AST ALT Alkaline Phosphatase Total Protein Albumin Triglycerides Cholesterol LDL Cholesterol Direct VLDL Cholesterol HDL Cholesterol Amylase Lipase TSH 3.34 Free T4 1.41 Free T3 pg/mL 4.63 Urine Color YELLOW Urine Appearance CLEAR Urine pH 7.0 Ur Specific [place] 1.016 Urine Protein 100 H Urine Glucose (UA) >=500 H Urine Ketones TRACE H Urine Blood NEGATIVE Urine Nitrite NEGATIVE Ur Leukocyte Esterase NEGATIVE Urine WBC (Auto) 1 Urine RBC (Auto) 0 Blood Type Antibody Screen 11/03/18 21:58 Troponin I < 0.012 Impressions: Abdomen/Pelvis CT 11/03/18 00:00 IMPRESSION: There is a small hiatal hernia. Posterior pulmonary atelectasis and probable edema in the anterior subcutaneous fat. No other clear etiology for acute symptoms. Chest X-Ray 11/03/18 15:50 IMPRESSION: NO ACUTE FINDINGS. Assessment & Plan - Diagnosis (1) Acute gastritis with bleeding Qualifiers: Gastritis type: alcoholic Qualified Code(s): K29.21 - Alcoholic gastritis with bleeding Is this a current diagnosis for this admission?: Yes (2) Acute pancreatitis Qualifiers: Pancreatitis type: alcohol induced Acute pancreatitis complication: unspec ified Qualified Code(s): K85.20 - Alcohol induced acute pancreatitis without necrosis or infection Is this a current diagnosis for this admission?: Yes - Plan Summary Plan Summary: A/ Patient symptoms of acute pancreatitis have improved; no more GERD symptoms, nausea/vomiting, or hematemesis Only residual epigastric discomfort at palpation CBC shows a decreased H/H (from 16/47 down tpo 12.8/37.3), most likely dilutional as the patient was very dehydrated on admission Normalized electrolytes as well as improved BUN after rehydration Normal Amylase/lipase P/ Continue NPO Continue Protonix drip, Maalox and Carafate Continue IVF Plan: EGD with biopsy under IV sedation tomorrow. Procedure risks, benefits, complications discussed with the patient, his questions were answered, and he decides to proceed
[2018-11-04 12:59] LABS: HEMATOCRIT 39.1 % (37.9-51.0); HEMOGLOBIN 13.2 g/dL (13.5-17.0); MEAN CORPUSCULAR HEMOGLOBIN 27.8 pg (27.0-33.4); MEAN CORPUSCULAR HGB CONC 33.9 g/dL (32.0-36.0); MEAN CORPUSCULAR VOLUME 82 fl (80-97); PLATELET COUNT 234 10^3/uL (150-450); RED BLOOD COUNT 4.76 10^6/uL (4.35-5.55); RED CELL DISTRIBUTION WIDTH 14.7 % (11.5-14.0); WHITE BLOOD COUNT 6.9 10^3/uL (4.0-10.5)
[2018-11-04 13:11] LABS: URINE AMPHETAMINES SCREEN NEGATIVE; URINE BARBITURATES SCREEN NEGATIVE; URINE BENZODIAZEPINES SCREEN NEGATIVE; URINE COCAINE SCREEN NEGATIVE; URINE MARIJUANA (THC) SCREEN NEGATIVE; URINE METHADONE SCREEN NEGATIVE; URINE PHENCYCLIDINE SCREEN NEGATIVE
--- NOTE | 2018-11-04 15:23 | PROGRESS NOTE E ---
Progress Note NAME: JOMAR OLVIO : 1970 AGE: 48Y DATE: 11/04/2018 ROOM: 321 SUBJECTIVE: The patient is sitting on the side of the bed. He states that he feels better than when he came in. The patient denies any nausea or vomiting at this time. He denies any diarrhea. Abdominal pain has been well-controlled. The patient has been afebrile. His blood pressure has been in a good range, and the patient has not voiced any other concerns at this time. REVIEW OF SYSTEMS: The rest of the review of systems is negative. MEDICATIONS: Reviewed. OBJECTIVE: GENERAL: The patient is a 48-year-old -[place] male, who is awake, alert and oriented to person, place, time and situation. He is verbal and conversational. Does not appear to be in any acute distress. VITAL SIGNS: Temperature is 97.8, pulse 84, respirations 16, temperature 135/89, oxygen saturation 98% on room air. SKIN: Warm and dry. No rash. He is not diaphoretic. HEENT: Pupils equal, round, reactive to light and accommodation. Conjunctivae are pink. There is no evidence of JVP. CVS: Heart is regular. There is no rub. Chest is clear, symmetrical and unlabored. ABDOMEN: Soft, nontender. EXTREMITIES: There is no edema. DIAGNOSTICS: Lab values are as follows: Hematology obtained on 11/04/2018: WBCs are 6.9, hemoglobin is 13.2, hematocrit is 39.1, platelet count is 254,000. Chemistry obtained on 11/04/2018: Sodium is 156, potassium 4.3, chloride is 100, carbon dioxide 28, BUN 18, creatinine is 2.19, glucose 183. Calcium is 8.6, magnesium is 1.9. Bilirubin is 0.3. AST 19, ALT is 31, alk phos 87. Total protein 6.0, albumin 2.9, triglycerides 153, cholesterol is 161, LDL is 101, VLDL is 30.6, HDL is 35. Lipase 35.4. TSH is 30.34. T4 is 1.41. IMPRESSION AND PLAN: 1. UPPER GI BLEED. The patient has had no further episodes since presentation. We will continue to monitor his CBC. The patient has been seen by surgeon and is to be scoped in the morning. 2. INTRACTABLE CONSTIPATION. Has done well with Thorazine. 3. ELEVATED LIPASE. The patient is to be scoped in the morning. This could be due to gastric ulcer. The patient does not have overwhelming evidence of pancreatitis. 4. DIABETES MELLITUS TYPE 2. The patient is very poorly controlled. He is not obese. The patient has been resumed on sliding scale coverage and once the patient is taking orals again, will start him on a basal. 5. HYPERTENSION. Will continue the patient's home blood pressure medications. DISPOSITION: The patient is a FULL CODE. Pending patient's symptomatology and diagnostic findings, will reevaluate in the a.m. Time spent on this followup, including assessment, plan, physical examination, patient education and review of records is 25 minutes. DICTATING PHYSICIAN: RAZ VIZCAINO NP [id number] PHY#: [id number] ID: [id number] JOB#: [id number] ACCT: [id number] cc: >
[2018-11-04 18:57] LABS: HEMATOCRIT 40.7 % (37.9-51.0); HEMOGLOBIN 13.9 g/dL (13.5-17.0); MEAN CORPUSCULAR HEMOGLOBIN 27.8 pg (27.0-33.4); MEAN CORPUSCULAR HGB CONC 34.1 g/dL (32.0-36.0); MEAN CORPUSCULAR VOLUME 82 fl (80-97); PLATELET COUNT 226 10^3/uL (150-450); RED BLOOD COUNT 4.99 10^6/uL (4.35-5.55); RED CELL DISTRIBUTION WIDTH 14.8 % (11.5-14.0); WHITE BLOOD COUNT 7.9 10^3/uL (4.0-10.5)
[2018-11-04] MEDS ORDERED: AMLODIPINE BESYLATE 5 MG TABLET PO ONE (21:16)
[2018-11-04] MEDS ORDERED: HYDRALAZINE HCL INJ/PF 20 MG/1 ML SDV IV PRN (21:17)
[2018-11-05 00:52] LABS: HEMATOCRIT 37.4 % (37.9-51.0); HEMOGLOBIN 12.9 g/dL (13.5-17.0); MEAN CORPUSCULAR HEMOGLOBIN 28.3 pg (27.0-33.4); MEAN CORPUSCULAR HGB CONC 34.6 g/dL (32.0-36.0); MEAN CORPUSCULAR VOLUME 82 fl (80-97); PLATELET COUNT 228 10^3/uL (150-450); RED BLOOD COUNT 4.58 10^6/uL (4.35-5.55); RED CELL DISTRIBUTION WIDTH 14.6 % (11.5-14.0); WHITE BLOOD COUNT 8.3 10^3/uL (4.0-10.5)
[2018-11-05] MEDS: INSULIN REG, HUMAN 100 UNIT/ML 3 ML VIAL (PYX) SUBCUT PRN (00:52)
[2018-11-05] MEDS: METOCLOPRAMIDE HCL INJ/PF 10 MG/2 ML SDV IV SCH (05:18)
[2018-11-05 07:28] LABS: AMYLASE 51 U/L (30-110); ANION GAP 7 (5-19); BLOOD UREA NITROGEN 12 mg/dL (7-20); CALCIUM 8.8 mg/dL (8.4-10.2); CARBON DIOXIDE 25 mmol/L (22-30); CHLORIDE 105 mmol/L (98-107); GLUCOSE 157 mg/dL (75-110); LIPASE 42.6 U/L (23-300); SODIUM 136.7 mmol/L (137-145)
[2018-11-05] MEDS ORDERED: DIPHENHYDRAMINE HCL 50 MG/ML VIAL ONE (07:45)
[2018-11-05] MEDS ORDERED: ONDANSETRON HCL INJ/PF 4 MG/2 ML SDV ONE (07:45)
[2018-11-05] MEDS ORDERED: FENTANYL CITRATE INJ/PF 100 MCG/2 ML AMPUL ONE (07:45)
[2018-11-05] MEDS ORDERED: GLUCAGON,HUMAN RECOMB 1 MG INJ ONE (07:45)
[2018-11-05] MEDS ORDERED: NALOXONE HCL INJ/PF 0.4 MG/1 ML SDV ONE (07:45)
[2018-11-05] MEDS ORDERED: FLUMAZENIL INJ 0.5 MG/5 ML VIAL ONE (07:45)
[2018-11-05] MEDS ORDERED: EPINEPHRINE INJ 1 MG/10 ML DISP.SYRIN ONE (07:45)
[2018-11-05] MEDS: MIDAZOLAM 2 MG/2 ML INJ ONE ×3 (08:13→08:28)
--- NOTE | 2018-11-05 08:45 | Operative Report ---
Nonrecallable Operative Report DATE OF SURGERY: 11/05/18 PREOPERATIVE DIAGNOSIS: Alcoholic pancreatitis. GERD. Alcohol abuse POSTOPERATIVE DIAGNOSIS: same. Antritis. Small Hiatal hernia. Distal esophagitis OPERATION: EGD with biopsy SURGEON: LADI SANZ ANESTHESIA: Moderate Sedation - provided by Dr. Ahumada o: 4 mg Versed IVP, 100 mcg Fentanyl IVP TISSUE REMOVED OR ALTERED: biopsies multiple COMPLICATIONS: none ESTIMATED BLOOD LOSS: < 5 mL INTRAOPERATIVE FINDINGS: mild antritis; small hiatal hernia, distal reflux esophagitis with esophageal mucosa friability PROCEDURE: see dictation
[2018-11-05] MEDS: NORMAL SALINE 1000 ML 1,000 ML IV PRN (09:56)
[2018-11-05] MEDS: PANTOPRAZOLE SODIUM 40 MG VIAL IV SCH (09:56)
[2018-11-05] MEDS ORDERED: AMLODIPINE BESYLATE 10 MG TABLET PO SCH ×2 (10:00)
[2018-11-05 11:53] VITALS: BP 154/87
--- NOTE | 2018-11-05 12:38 | OPERATIVE REPORT E ---
Operative Report NAME: JOMAR OLIVO : 1970 AGE: 48Y DATE OF SURGERY: 11/05/2018 ROOM: 321 PREOPERATIVE DIAGNOSES: 1. ALCOHOL-INDUCED PANCREATITIS. 2. GASTROESOPHAGEAL REFLUX DISEASE. 3. ALCOHOL ABUSE. POSTOPERATIVE DIAGNOSES: 1. ALCOHOL-INDUCED PANCREATITIS. 2. GASTROESOPHAGEAL REFLUX DISEASE. 3. ALCOHOL ABUSE. 4. ANTRITIS. 5. SMALL HIATAL HERNIA. 6. DISTAL ESOPHAGITIS. OPERATION: Esophagogastroduodenoscopy with biopsies. SURGEON: LADI SANZ M.D. OUTSOLE CASER: None. ANESTHESIA: IV sedation provided by Dr. Sanz, 4 mg IV push of Versed and 100 mcg IV push of fentanyl. ESTIMATED BLOOD LOSS: Minimal. Less than 5 mL. COMPLICATIONS: None. FLUIDS: 300 mg of crystalloids. INDICATIONS AND FINDINGS: This is a 48-year-old -[place] male with a history of alcohol abuse, long-term GERD symptoms, who presented to the emergency room complaining of abdominal pain, nausea and vomiting with hematemesis. The patient was admitted to the floor, kept n.p.o., on IV fluids. His symptoms improved, as well as his blood work, with improvement of his lipase. The patient is scheduled today to undergo an upper endoscopy. This procedure, risks, benefits and complications explained to the patient, who signed consent and decided to proceed. PROCEDURE: The procedure was done in the endoscopy suite. The patient was placed in lateral decubitus. IV sedation provided as above. The scope was inserted through the mouth, esophagus and stomach. The preparation was good. The esophagus was free from disease. The instrument was withdrawn into the stomach. Mild inflammation of the antrum was noted. Random biopsies of the antral mucosa were obtained for gastritis. The instrument was then retroflexed. The lesser and greater curvatures and fundus of the stomach appeared to be normal. A small hiatal hernia was identified. The instrument was then withdrawn into the esophagus, where distal esophagitis was noted. Random biopsies were obtained from the esophagus and then multiple biopsies were obtained from the gastroesophageal junction. Friability of the esophagus was noted. The GE junction was noted at about 40 cm. The instrument was then slowly withdrawn. The upper portion of the esophagus appears to be normal. The patient tolerated the procedure well and transferred to the recovery room in satisfactory condition. DICTATING PHYSICIAN: LADI SANZ M.D. [id number] PHY#: [id number] ID: [id number] JOB#: [id number] ACCT: [id number] cc:LADI SANZ M.D. > [facility] CENTERAlberto
--- NOTE | 2018-11-06 09:17 | DISCHARGE SUMMARY E ---
Discharge Summary NAME: JOMAR OLIVO : 1970 AGE: 48Y ADMITTED: 11/03/2018 DISCHARGED: 11/05/2018 CODE STATUS: FULL CODE. PRIMARY CARE PROVIDER: [facility] CONSULTING SURGICALIST: Wisam Porras M.D. DISCHARGE DIAGNOSES INCLUDE: 1. Esophagitis and gastritis. 2. Upper GI bleed secondary to the above which has resolved. 3. Intractable hiccups which broke with Thorazine. 4. Diabetes mellitus type 2. 5. Alcoholic pancreatitis. The patient has been counseled. 6. Hypertension. DISCHARGE MEDICATIONS INCLUDE: 1. Carafate 1 g p.o. q.i.d., 400 mL with no refills. 2. Protonix 40 mg p.o. b.i.d., 28 tablets with 0 refills. 3. Losartan 12.5 mg p.o. daily. 4. Levemir 80 mg subcu b.i.d. 5. NovoLog 15 units subcu before meals. 6. Norvasc 5 mg p.o. daily. DIET: As tolerated, no alcohol. ACTIVITY: As tolerated. CONDITION: Good. DIAGNOSTICS: Lab values are as follows. Hematology obtained on 11/05/2018: WBC is 8.3, hemoglobin is 10.9, hematocrit is 37.4, platelet count is 228,000. ABG obtained on 11/03/2018 has a pH of 7.33, PCO2 is 58, bicarb is 29. Chemistry obtained on 11/05/2018: Sodium is 136, potassium 4.0, chloride 105, carbon dioxide 25, BUN 12, creatinine 1.06, glucose 157, calcium 8.8, magnesium is 2.0, lipase is 42. Urinalysis obtained on 11/04/2018: Color yellow, appearance clear, pH 7.0, specific gravity 1.016, protein 100, glucose greater than 500, ketones trace, occult blood negative, nitrite negative, bili negative, urobilinogen negative, leukocyte esterase negative, WBCs 1, RBCs 0, mucus rare, ascorbic acid is negative. Other body sources obtained on 11/03/2018: Stool for occult blood is positive. Toxicology obtained on 11/04/2018: Opiate screen is positive. CT of the abdomen and pelvis obtained on 11/03/2018 reveals small hiatal hernia with posterior pulmonary atelectasis. Chest x-ray obtained on 11/03/2018 reveals no acute findings. EKG obtained on 11/03/2018 reveals sinus rhythm. EGD obtained on 11/05/2018 reveals alcohol-induced pancreatitis with gastroesophageal reflux disease, antral gastritis, small hiatal hernia, and distal esophagitis. HISTORY OF PRESENT ILLNESS: The patient is a 48-year-old -[place] male with a past medical history of hypertension. The patient presented to the emergency department with chief complaint of hematemesis. The patient stated for 2 weeks he had been having abdominal pain and occasional episodes of vomiting. However, for the past 48 hours the patient's vomiting has been more irritating as well as associated hiccups and described what sounded like dark red clots with several episodes of retching that included bright red vomit. The patient noted constant, nonradiating intensity, burning, and deep achy pain in his epigastric region. The patient was unable to tolerate any oral intake. With the patient's retching he developed hiccups. The patient was not able to identify any alleviating factors. While in the emergency department the patient was noted to have *------*, hyperglycemia, positive guaiac for emesis, and mildly elevated lipase. Subsequently the patient was referred to the hospitalist for admission and management. HOSPITAL COURSE: The patient was admitted to [facility]. The patient had no events on telemetry monitoring. The patient was hydrated and was kept n.p.o. The patient was seen by the surgicalist service and underwent EGD which was suggestive of antral gastritis as well as esophagitis most likely related to the patient's alcohol intake as the patient does admit to drinking heavily. The patient's lipase improved and the patient's symptoms improved dramatically after being started on PPI as well as Carafate. The patient has been cleared for discharge from a surgicalist perspective and these prescriptions have been sent to the pharmacy. PHYSICAL EXAMINATION: GENERAL: On examination, the patient is a well-developed, well-nourished 48-year-old -[place]onese male who is awake, alert, and oriented to person, place, time, and situation. He is verbal, conversational, does not appear to be in any acute distress. VITAL SIGNS: As follows: Temperature is 98.2, pulse 89, respirations 16, blood pressure 154/87, oxygen saturation is 99% on room air. SKIN: Warm and dry. No rash. He is not diaphoretic. HEENT: Pupils are equal, round, and reactive to light and accommodation. Conjunctivae pink. No evidence of JVP. CARDIOVASCULAR: Heart is regular. There is no murmur or rub. CHEST: Clear, symmetrical, unlabored. ABDOMEN: Soft, nontender, nondistended. BACK: No CVA tenderness or sacral edema. EXTREMITIES: No clubbing, cyanosis, edema. PSYCHIATRIC: Appropriate affect. Pleasant mood. DISCHARGE PLANNING: The patient is to follow up with his primary care provider at the [place] as needed. The patient will be referred either to [facility] or Dr. Jacobo to follow up biopsies, especially the patient's esophagitis as Dowling's does need to be ruled out. Time spent on this discharge, including assessment/plan, physical examination, patient education, review of records, and specialty collaboration, is 25 minutes. DICTATING PHYSICIAN: RAZ VIZCAINO NP [id number] PHY#: [id number] ID: [id number] JOB#: [id number] ACCT: [id number] cc:KENDAL IGNACIO M.D. RAZ VIZCAINO NP >
== END 2018-11-05 12:10 | disposition home or self-care (01) | DRG 377 ==
LOC: EEVIPCON 15:18 → ER 15:18 → EH 23:54 → 3W 11-04 02:04
PROVIDERS: ADMIT Emergency Medicine; ATTEND Emergency Medicine
PROC: 0DB78ZX Excision of Stomach, Pylorus, Via Natural or Artificial Opening Endoscopic, Diagnostic (ICD-10-PCS; 2018-11-05)
PROC: 0DB58ZX Excision of Esophagus, Via Natural or Artificial Opening Endoscopic, Diagnostic (ICD-10-PCS; 2018-11-05)
PROC: 0DB48ZX Excision of Esophagogastric Junction, Via Natural or Artificial Opening Endoscopic, Diagnostic (ICD-10-PCS; principal; 2018-11-05 08:00)
DX: K29.21 Alcoholic gastritis with bleeding (principal); K85.20 Alcohol induced acute pancreatitis without necrosis or infection; K44.9 Diaphragmatic hernia without obstruction or gangrene; K20.8 Other esophagitis; F10.10 Alcohol abuse, uncomplicated; K59.00 Constipation, unspecified; E11.65 Type 2 diabetes mellitus with hyperglycemia; E78.5 Hyperlipidemia, unspecified; R06.6 Hiccough; I10 Essential (primary) hypertension; E87.5 Hyperkalemia; E86.0 Dehydration; Z79.1 Long term (current) use of non-steroidal anti-inflammatories (NSAID); Z83.3 Family history of diabetes mellitus; Z82.49 Family history of ischemic heart disease and other diseases of the circulatory system; Z88.8 Allergy status to other drugs, medicaments and biological substances; Z91.012 Allergy to eggs
CPT/HCPCS: 36415; 43239; 71045; 74177; 80048; 80053; 80061; 80307; 81001; 82150; 82803; 82962; 83036; 83605; 83690; 83735; 84439; 84443; 84481; 84484; 85025; 85027; 86850; 86900; 86901; 88305; 88342; 93005; 93010; 96361; 96365; 96366; 96375; 96376; 99285; J0171; J1200; J1610; J1815; J2250; J2270; J2310; J2405; J2765; J3010; J3230; J3490; J7030; S0164

== ENCOUNTER 2019-03-15 16:31 | Inpatient (IN) | payer OTHER, BC ==
[2019-03-15] MEDS ORDERED: ACETAMINOPHEN 325 MG TABLET PO ONE (16:53)
[2019-03-15] MEDS ORDERED: CEFEPIME 2 GM/D5W RTU 2 GM/50 ML RTUPB IV ONE (17:36)
[2019-03-15] MEDS ORDERED: VANCOMYCIN HCL INJ 1000 MG VIAL IV ONE ×2 (17:36→22:49)
[2019-03-15] MEDS ORDERED: NORMAL SALINE 1000 ML 1,000 ML IV ONE ×2 (17:37→19:16)
--- NOTE | 2019-03-15 17:39 | ER Document Report ---
ED Medical Screen (RME) - General Chief Complaint: Foot Pain Stated Complaint: RIGHT FOOT PAIN Time Seen by Provider: 03/15/19 17:28 Primary Care Provider: [facility] [Primary Care Provider] - Follow up as needed TRAVEL OUTSIDE OF THE [place] IN LAST 30 DAYS: No - HPI Notes: 03/15/19 17:37 Patient is a 49-year-old diabetic male who presents complaining of worsening infection to his right great toe and increased pain and discoloration to the right dorsal foot over the past 10 days. He has been on amoxicillin for 1 week without any improvement. Patient states he has started developing fevers as well. He is otherwise able to eat and drink without difficulty. Denies CHEN, neck pain, URI, CP, SOB, Abd pain, dysuria, back pain. I have treated and performed a rapid initial assessment of this patient. A comprehensive ED assessment and evaluation of the patient, analysis of test results and completion of medical decision making process will be conducted by additional ED providers. PHYSICAL EXAMINATION: GENERAL: Well-appearing, well-nourished and in no acute distress. A&Ox4. Answers questions appropriately. LUNGS: Breath sounds clear to auscultation bilaterally and equal. No wheezes rales or rhonchi. HEART: Regular rate and rhythm without murmurs, rubs, gallops. Rt foot: + erythema, swelling, necrosis appearing tissue, tenderness to the dorsal distal foot but worse at the 1st digit. - Related Data Allergies/Adverse Reactions: ROSS Inhibitors Allergy (Severe, Verified 03/15/19 16:34) Angioneurotic Edema ARB-Angiotensin Receptor Antagonist Allergy (Severe, Verified 03/15/19 16:34) Angioneurotic Edema cyclobenzaprine HCl [From Flexeril] Allergy (Verified 03/15/19 16:34) eyes swell, SOB ibuprofen [Ibuprofen] Allergy (Verified 03/15/19 16:34) eyes swell, SOB naproxen [Naproxen] Allergy (Verified 03/15/19 16:34) eyes swell, SOB eggs Adverse Reaction (Intermediate, Uncoded 03/15/19 16:34) Hives Past Medical History - Past Medical History Cardiac Medical History: Reports: Hx Hypercholesterolemia, Hx Hypertension Denies: Hx Coronary Artery Disease, Hx Heart Attack Pulmonary Medical History: Denies: Hx Asthma, Hx Bronchitis, Hx COPD, Hx Pneumonia, Hx Tuberculosis Neurological Medical History: Denies: Hx Cerebrovascular Accident, Hx Seizures Endocrine Medical History: Reports: Hx Diabetes Mellitus Type 2. Denies: Hx Hyperthyroidism, Hx Hypothyroidism Renal/ Medical History: Denies: Hx Peritoneal Dialysis GI Medical History: Denies: Hx Cirrhosis, Hx Hepatitis Musculoskeltal Medical History: Denies Hx Arthritis Skin Medical History: Denies Hx Eczema, Denies Hx Psoriasis Psychiatric Medical History: Reports: Hx Bipolar Disorder, Hx Depression Infectious Medical History: Denies: Hx Hepatitis Past Surgical History: Reports: Hx Orthopedic Surgery - right thigh, right hand - Immunizations Immunizations up to date: Yes Hx Diphtheria, Pertussis, Tetanus Vaccination: Yes Physical Exam - Vital signs Vitals: Temp Pulse Resp BP Pulse Ox 102.7 F H 115 H 20 142/77 H 97 03/15/19 16:50 03/15/19 16:50 03/15/19 16:50 03/15/19 16:50 03/15/19 16:50 Course - Vital Signs Vital signs: Temp Pulse Resp BP Pulse Ox 102.7 F H 115 H 20 142/77 H 97 03/15/19 16:50 03/15/19 16:50 03/15/19 16:50 03/15/19 16:50 03/15/19 16:50 Doctor's Discharge - Discharge Referrals: [facility] [[facility] - Follow up as needed
--- NOTE | 2019-03-15 18:10 | RADIOLOGY REPORT (SQ) ---
EXAM DESCRIPTION: FOOT RIGHT COMPLETE COMPLETED DATE/TIME: 03/15/2019 6:01 pm REASON FOR STUDY: ?osteomyelitis, erythema, necrosis COMPARISON: None. NUMBER OF VIEWS: Three views. TECHNIQUE: AP, lateral and oblique radiographic images acquired of the right foot. LIMITATIONS: None. FINDINGS: MINERALIZATION: Normal. BONES: Fractures of the proximal phalanx of the 1st toe and distal 2nd and 3rd metatarsals. JOINTS: No effusions. SOFT TISSUES: Mild soft tissue swelling. No foreign body. OTHER: No other significant finding. IMPRESSION: FRACTURES OF THE 1ST TOE AND DISTAL 2ND AND 3RD METATARSALS. MILD DIFFUSE SOFT TISSUE S WELLING. NO RADIOGRAPHIC FINDINGS OF OSTEOMYELITIS. TECHNICAL DOCUMENTATION: JOB ID: [id number] Mobile Location, IP- All Rights Reserved Reading location - IP/workstation name: [email or web address]
[2019-03-15 18:39] LABS: ABSOLUTE LYMPHOCYTES (AUTO) 2.1 10^3/uL (0.5-4.7); ABSOLUTE MONOCYTES (AUTO) 1.6 10^3/uL (0.1-1.4); ABSOLUTE NEUT (AUTO) 15.8 10^3/uL (1.7-8.2); BASOPHILS % (AUTO) 0.1 % (0-2); EOSINOPHILS % (AUTO) 0.1 % (0-6); HEMATOCRIT 32.9 % (37.9-51.0); HEMOGLOBIN 10.8 g/dL (13.5-17.0); LYMPHOCYTES % (AUTO) 10.7 % (13-45); MEAN CORPUSCULAR HEMOGLOBIN 26.8 pg (27.0-33.4); MEAN CORPUSCULAR HGB CONC 32.9 g/dL (32.0-36.0); MEAN CORPUSCULAR VOLUME 82 fl (80-97); MONOCYTES % (AUTO) 8.2 % (3-13); PLATELET COUNT 454 10^3/uL (150-450); RED BLOOD COUNT 4.03 10^6/uL (4.35-5.55); RED CELL DISTRIBUTION WIDTH 14.5 % (11.5-14.0); SEGMENTED NEUTROPHILS % (AUTO) 80.9 % (42-78); TOTAL CELLS COUNTED % (AUTO) 100 %; VENOUS BLOOD BASE EXCESS 1.4 mmol/L; VENOUS BLOOD HCO3 26.9 mmol/L (20-32); VENOUS BLOOD PH 7.39 (7.30-7.42); WHITE BLOOD COUNT 19.5 10^3/uL (4.0-10.5)
[2019-03-15 19:01] LABS: ALANINE AMINOTRANSFERASE 16 U/L (21-72); ALBUMIN 3.4 g/dL (3.5-5.0); ALKALINE PHOSPHATASE 145 U/L (38-126); ANION GAP 10 (5-19); ASPARTATE AMINO TRANSFERASE 24 U/L (17-59); BILIRUBIN,DIRECT 0.2 mg/dL (0.0-0.4); BILIRUBIN,TOTAL 0.4 mg/dL (0.2-1.3); BLOOD UREA NITROGEN 20 mg/dL (7-20); CALCIUM 9.2 mg/dL (8.4-10.2); CARBON DIOXIDE 26 mmol/L (22-30); CHLORIDE 97 mmol/L (98-107); GLUCOSE 320 mg/dL (75-110); POTASSIUM 5.2 mmol/L (3.6-5.0); TOTAL PROTEIN 7.1 g/dL (6.3-8.2)
[2019-03-15] MEDS ORDERED: PIPERACILLIN/TAZOBACTAM 3.375 GM VIAL IV ONE (22:49)
--- NOTE | 2019-03-15 22:51 | ER Document Report ---
ED General - General Chief Complaint: Foot Pain Stated Complaint: RIGHT FOOT PAIN Time Seen by Provider: 03/15/19 17:28 Notes: Patient is a pleasant 49-year-old male who has a history of diabetes who presents with complaint of redness and swelling into the foot increasing pain into the foot. He is not aware of any evidence of foot fractures. He does have diabetic neuropathy. He does not have a history of kidney failure and is on dialysis. He does admit to some fevers and arrived to the ER with a elevated temp. Patient's foot redness and swelling have been progressing over the last 2 to 3 days. TRAVEL OUTSIDE OF THE [place] IN LAST 30 DAYS: No - Related Data Allergies/Adverse Reactions: ROSS Inhibitors Allergy (Severe, Verified 03/15/19 16:34) Angioneurotic Edema ARB-Angiotensin Receptor Antagonist Allergy (Severe, Verified 03/15/19 16:34) Angioneurotic Edema cyclobenzaprine HCl [From Flexeril] Allergy (Verified 03/15/19 16:34) eyes swell, SOB ibuprofen [Ibuprofen] Allergy (Verified 03/15/19 16:34) eyes swell, SOB naproxen [Naproxen] Allergy (Verified 03/15/19 16:34) eyes swell, SOB eggs Adverse Reaction (Intermediate, Uncoded 03/15/19 16:34) Hives Past Medical History - Social History Smoking Status: Unknown if Ever Smoked Frequency of alcohol use: None Drug Abuse: None Family History: DM, Hypertension Patient has suicidal ideation: No Patient has homicidal ideation: No - Past Medical History Cardiac Medical History: Reports: Hx Hypercholesterolemia, Hx Hypertension Denies: Hx Coronary Artery Disease, Hx Heart Attack Pulmonary Medical History: Denies: Hx Asthma, Hx Bronchitis, Hx COPD, Hx Pneumonia, Hx Tuberculosis Neurological Medical History: Denies: Hx Cerebrovascular Accident, Hx Seizures Endocrine Medical History: Reports: Hx Diabetes Mellitus Type 2. Denies: Hx Hyperthyroidism, Hx Hypothyroidism Renal/ Medical History: Denies: Hx Peritoneal Dialysis GI Medical History: Denies: Hx Cirrhosis, Hx Hepatitis Musculoskeletal Medical History: Denies Hx Arthritis Skin Medical History: Denies Hx Eczema, Denies Hx Psoriasis Psychiatric Medical History: Reports: Hx Bipolar Disorder, Hx Depression Infectious Medical History: Denies: Hx Hepatitis Past Surgical History: Reports: Hx Orthopedic Surgery - right thigh, right hand - Immunizations Immunizations up to date: Yes Hx Diphtheria, Pertussis, Tetanus Vaccination: Yes Review of Systems - Review of Systems Notes: My Normal Review Basic REVIEW OF SYSTEMS: CONSTITUTIONAL : Fever EENT: Denies eye, ear, throat, or mouth pain or symptoms. Denies nasal or sinus congestion. CARDIOVASCULAR: Denies chest pain. RESPIRATORY: Denies cough, cold, or chest congestion. Denies shortness of breath, difficulty breathing, or wheezing. GASTROINTESTINAL: Denies abdominal pain. Denies nausea, vomiting, or diarrhea. MUSCULOSKELETAL: Right foot infection SKIN: Denies rash or skin lesions. HEMATOLOGIC : Denies easy bruising or bleeding. NEUROLOGICAL: Denies altered mental status or loss of consciousness. Denies headache. Denies weakness or paralysis or loss of use of either side. Denies problems with gait or speech. Denies sensory or motor loss. ALL OTHER SYSTEMS REVIEWED AND NEGATIVE. Physical Exam - Vital signs Vitals: Temp Pulse Resp BP Pulse Ox 102.7 F H 115 H 20 142/77 H 97 03/15/19 16:50 03/15/19 16:50 03/15/19 16:50 03/15/19 16:50 03/15/19 16:50 - Notes Notes: General Appearance: Well nourished, alert, cooperative, no acute distress, no obvious discomfort. Vitals: reviewed, See vital signs table. Eyes: PERRL, EOMI, Conjuctiva clear Mouth: No decreasd moisture Lungs: No wheezing, No rales, No rhonci, No accessory muscle use, good air exchange bilaterally. Heart: Tachycardic rate, Regular rythm, No murmur, no rub Abdomen: Normal BS, soft, No rigidity, No abdominal tenderness, No guarding, no rebound, no abdominal masses, no organomegaly Extremities: strength 5/5 in all extremities, good pulses in all extremities, patient's right foot has obviously abscessed big toe with redness and swelling into the remainder foot with fluctuance over the distal aspect aspect of the foot. Patient also has some redness and cellulitis forming over the heel aspect of the right lower leg. Patient's left big toe also is starting to. Infected but this is localized to the toe itself and does not appear to be affecting the rest of the left foot. There is some chronic ulceration of the left big toe. Skin: warm, dry, appropriate color, no rash Neuro: speech clear, oriented x 3, normal affect, responds appropriately to questions. Course - Re-evaluation Re-evalutation: 03/15/19 22:51 My concern is the patient has a badly abscessed foot with multiple broken bones of the foot consistent with a Charcot foot. ER he has redness into the ankle and start to have redness into the lower leg. Concerned that he needs amputation or he will likely have infection spread throughout his whole leg and become very septic. I have spoken with her surgeon, Dr. Carrasco, who agrees to come evaluate the patient. 03/16/19 00:59 Dr. Carrasco evaluate the patient agrees that he does have to amputate the foot. Says he will do this in the morning and requests medicine to admit the patient. Patient received cefepime and Vanc. I did speak with Dr. Jerome, hospitalist, who agrees to evaluate the patient for admission. Dictation of this chart was performed using voice recognition software; therefore, there may be some unintended grammatical errors. - Vital Signs Vital signs: Temp Pulse Resp BP Pulse Ox 102.7 F H 115 H 20 142/77 H 97 03/15/19 16:50 03/15/19 16:50 03/15/19 16:50 03/15/19 16:50 03/15/19 16:50 - Laboratory Result Diagrams: 03/15/19 18:10 03/15/19 18:10 Laboratory results interpreted by me: 03/15/19 03/15/19 03/15/19 18:09 18:10 18:10 WBC 19.5 H RBC 4.03 L Hgb 10.8 L Hct 32.9 L MCH 26.8 L RDW 14.5 H Plt Count 454 H Seg Neutrophils % 80.9 H Lymphocytes % 10.7 L Absolute Neutrophils 15.8 H Absolute Monocytes 1.6 H Sodium 133.4 L Potassium 5.2 H Chloride 97 L Creatinine 1.53 H Est GFR ( Amer) 59 L Est GFR (Non-Af Amer) 49 L Glucose 320 H POC Glucose 298 H Lactic Acid ALT 16 L Alkaline Phosphatase 145 H Albumin 3.4 L 03/15/19 18:10 WBC RBC Hgb Hct MCH RDW Plt Count Seg Neutrophils % Lymphocytes % Absolute Neutrophils Absolute Monocytes Sodium Potassium Chloride Creatinine Est GFR ( Amer) Est GFR (Non-Af Amer) Glucose POC Glucose Lactic Acid 2.8 H ALT Alkaline Phosphatase Albumin Discharge - Discharge Clinical Impression: Foot infection Sepsis Qualifiers: Sepsis type: sepsis due to unspecified organism Qualified Code(s): A41.9 - Sepsis, unspecified organism Condition: Stable Disposition: ADMITTED INPATIENT Admitting Provider: [facility] (Hospitalist) Unit Admitted: [facility]
[2019-03-16] MEDS ORDERED: GLUCAGON,HUMAN RECOMB 1 MG INJ SUBCUT PRN (01:59)
[2019-03-16] MEDS ORDERED: IPRATROPIUM/ALBUTEROL 0.5-2.5 MG/3 ML AMPUL NEB PRN (01:59)
[2019-03-16] MEDS ORDERED: DEXTROSE 50%-WATER 25 GM/50 ML DISP.SYRIN IV PRN ×4 (01:59)
[2019-03-16] MEDS ORDERED: DEXTROSE 40% GEL 15 GM TUBE PO PRN ×4 (01:59)
[2019-03-16] MEDS ORDERED: GLUCAGON,HUMAN RECOMB 1 MG INJ IM PRN (01:59)
[2019-03-16] MEDS ORDERED: ACETAMINOPHEN 325 MG TABLET PO PRN (01:59)
[2019-03-16] MEDS ORDERED: MAGNESIUM HYDROXIDE SUSP 30 ML UDCUP PO PRN (01:59)
[2019-03-16] MEDS ORDERED: VANCOMYCIN HCL 0 MG in DEXTROSE 5%-WATER 250 ML IV NR (02:00)
[2019-03-16] MEDS ORDERED: NORMAL SALINE 1000 ML 1,000 ML IV PRN (04:00)
[2019-03-16] MEDS ORDERED: INSULIN GLARGINE,HUM.REC.ANLOG 1,000 UNIT/10 ML VIAL SUBCUT ONE (04:00)
[2019-03-16] MEDS ORDERED: DOCUSATE SODIUM 100 MG CAPSULE PO ONE (04:00)
[2019-03-16] MEDS: FENTANYL CITRATE INJ/PF 100 MCG/2 ML AMPUL IV PRN ×2 (04:40→10:00)
--- NOTE | 2019-03-16 04:50 | PDOC H&P ---
History of Present Illness Admission Date/PCP: 03/16/19 01:[facility] Patient complains of: Right great toe and foot pain and swelling History of Present Illness: JOMAR OLIVO is a 49 year old male with a past medical history of former alcoholism with gastritis and upper GI bleed, peripheral vascular disease, peripheral neuropathy and poorly controlled insulin-dependent diabetes. He presents with 72 hours of fever and chills, pain and swelling to his left great toe and foot prompting evaluation in the emergency room where he is found to have sepsis with toe/foot gangrene and new Charcot foot deformity, lactic acidosis, hyperkalemia, hyponatremia. He started on empiric antibiotics and referred to the hospitalist for admission. Patient admits previous diabetic foot ulcer in the opposite toe but without current complaints. Patient admits to chronic lifestyle and medication noncompliance. Past Medical History Cardiac Medical History: Reports: Hyperlipidema, Hypertension Denies: Coronary Artery Disease, Myocardial Infarction Pulmonary Medical History: Denies: Asthma, Bronchitis, Chronic Obstructive Pulmonary Disease (COPD), Pneumonia, Tuberculosis Neurological Medical History: Denies: Seizures Endocrine Medical History: Reports: Diabetes Mellitus Type 2 Denies: Hyperthyroidism, Hypothyroidism GI Medical History: Denies: Cirrhosis, Hepatitis Musculoskeltal Medical History: Denies: Arthritis Skin Medical History: Denies: Eczema, Psoriasis Psychiatric Medical History: Reports: Bipolar Disorder, Depression Hematology: Denies: Anemia, Bleeding Tendencies Past Surgical History Past Surgical History: Reports: Orthopedic Surgery - right thigh, right hand Social History Information Source: Patient Smoking Status: Unknown if Ever Smoked Frequency of Alcohol Use: None Hx Recreational Drug Use: No Drugs: None Hx Prescription Drug Abuse: No - Advance Directive Resuscitation Status: Full Code Family History Family History: DM, Hypertension Parental Family History Reviewed: Yes Children Family History Reviewed: Yes Sibling(s) Family History Reviewed.: Yes Medication/Allergy Home Medications: Insulin Aspart [Novolog Insulin (Aspart) 100 unit/mL] 15 unit SUBCUT AC 06/23/13 Insulin Detemir [Levemir Insulin 100 units/mL Insulin Pen] 80 unit SUBCUT BIDBS 03/01/16 Losartan Potassium 12.5 mg PO DAILY 05/18/17 Amlodipine Besylate [Norvasc 10 mg Tablet] 5 mg PO DAILY 11/04/18 Pantoprazole Sodium [Protonix] 40 mg PO BID #28 tablet. 11/05/18 Sucralfate [Carafate] 1 gm PO QID #400 oral.susp 11/05/18 Allergies/Adverse Reactions: ROSS Inhibitors Allergy (Severe, Verified 03/15/19 16:34) Angioneurotic Edema ARB-Angiotensin Receptor Antagonist Allergy (Severe, Verified 03/15/19 16:34) Angioneurotic Edema cyclobenzaprine HCl [From Flexeril] Allergy (Verified 03/15/19 16:34) eyes swell, SOB ibuprofen [Ibuprofen] Allergy (Verified 03/15/19 16:34) eyes swell, SOB naproxen [Naproxen] Allergy (Verified 03/15/19 16:34) eyes swell, SOB eggs Adverse Reaction (Intermediate, Uncoded 03/15/19 16:34) Hives Review of Systems Constitutional: PRESENT: as per HPI, fatigue, fever(s), weakness, weight loss. ABSENT: chills, headache(s), weight gain Eyes: ABSENT: visual disturbances Ears: ABSENT: hearing changes Cardiovascular: ABSENT: chest pain, dyspnea on exertion, edema, orthropnea, palpitations Respiratory: ABSENT: cough, hemoptysis Gastrointestinal: ABSENT: abdominal pain, constipation, diarrhea, hematemesis, hematochezia, nausea, vomiting Genitourinary: ABSENT: dysuria, hematuria Musculoskeletal: PRESENT: as per HPI, other - Circumferential erythema to the right leg with +1 edema, malodorous, necrotic drainage from the right great toe. ABSENT: joint swelling Integumentary: PRESENT: other - Circumferential erythema to the right leg with +1 edema, malodorous, necrotic drainage from the right great toe. ABSENT: rash, wounds Neurological: ABSENT: abnormal gait, abnormal speech, confusion, dizziness, focal weakness, syncope Psychiatric: ABSENT: anxiety, depression, homidical ideation, suicidal ideation Endocrine: ABSENT: cold intolerance, heat intolerance, polydipsia, polyuria Hematologic/Lymphatic: ABSENT: easy bleeding, easy bruising Physical Exam Vital Signs: Temp Pulse Resp BP Pulse Ox 102.7 F H 115 H 20 142/77 H 97 03/15/19 16:50 03/15/19 16:50 03/15/19 16:50 03/15/19 16:50 03/15/19 16:50 Intake & Output 07/17/19 07/18/19 07/19/19 11:59 11:59 11:59 Intake Total 2049 Balance 2049 Weight 96.9 kg General appearance: PRESENT: cooperative, severe distress, well-developed, well- nourished Head exam: PRESENT: atraumatic, normocephalic Eye exam: PRESENT: conjunctiva pink, EOMI, PERRLA. ABSENT: scleral icterus Ear exam: PRESENT: normal external ear exam Mouth exam: PRESENT: moist, tongue midline Neck exam: ABSENT: carotid bruit, JVD, lymphadenopathy, thyromegaly Respiratory exam: PRESENT: clear to auscultation rian. ABSENT: rales, rhonchi, wheezes Cardiovascular exam: PRESENT: +S1, +S2, tachycardia Pulses: PRESENT: normal dorsalis pedis pul Vascular exam: PRESENT: normal capillary refill GI/Abdominal exam: PRESENT: normal bowel sounds, soft. ABSENT: distended, guarding, mass, organolmegaly, rebound, tenderness Rectal exam: PRESENT: deferred Extremities exam: PRESENT: joint swelling, pedal edema, tenderness, +1 edema, other - Circumferential erythema to the right leg with +1 edema, malodorous, necrotic drainage from the right great toe. ABSENT: calf tenderness, clubbing, full ROM Musculoskeletal exam: PRESENT: deformity, tenderness, other - Circumferential erythema to the right leg with +1 edema, malodorous, necrotic drainage from the right great toe. ABSENT: normal inspection Neurological exam: PRESENT: alert, awake, oriented to person, oriented to place, oriented to time, oriented to situation, CN II-XII grossly intact. ABSENT: motor sensory deficit Psychiatric exam: PRESENT: appropriate affect, normal mood. ABSENT: homicidal ideation, suicidal ideation Skin exam: PRESENT: other - Circumferential erythema to the right leg with +1 edema, malodorous, necrotic drainage from the right great toe Results Laboratory Results: 03/15/19 18:10 03/15/19 18:10 03/15/19 03/15/19 03/15/19 18:10 18:10 18:10 WBC 19.5 H RBC 4.03 L Hgb 10.8 L Hct 32.9 L MCV 82 MCH 26.8 L MCHC 32.9 RDW 14.5 H Plt Count 454 H Seg Neutrophils % 80.9 H Lymphocytes % 10.7 L Monocytes % 8.2 Eosinophils % 0.1 Basophils % 0.1 Absolute Neutrophils 15.8 H Absolute Lymphocytes 2.1 Absolute Monocytes 1.6 H Absolute Eosinophils 0.0 Absolute Basophils 0.0 VBG pH VBG pCO2 VBG HCO3 VBG Base Excess Sodium 133.4 L Potassium 5.2 H Chloride 97 L Carbon Dioxide 26 Anion Gap 10 BUN 20 Creatinine 1.53 H Est GFR ( Amer) 59 L Est GFR (Non-Af Amer) 49 L Glucose 320 H Lactic Acid 2.8 H Calcium 9.2 Magnesium Total Bilirubin 0.4 AST 24 ALT 16 L Alkaline Phosphatase 145 H Total Protein 7.1 Albumin 3.4 L 03/15/19 03/16/19 03/16/19 18:10 02:19 02:19 WBC RBC Hgb Hct MCV MCH MCHC RDW Plt Count Seg Neutrophils % Lymphocytes % Monocytes % Eosinophils % Basophils % Absolute Neutrophils Absolute Lymphocytes Absolute Monocytes Absolute Eosinophils Absolute Basophils VBG pH 7.39 VBG pCO2 45.0 VBG HCO3 26.9 VBG Base Excess 1.4 Sodium Potassium Chloride Carbon Dioxide Anion Gap BUN Creatinine Est GFR ( Amer) Est GFR (Non-Af Amer) Glucose Lactic Acid 1.1 Calcium Magnesium 2.1 Total Bilirubin AST ALT Alkaline Phosphatase Total Protein Albumin Impressions: Foot X-Ray 03/15/19 17:35 IMPRESSION: FRACTURES OF THE 1ST TOE AND DISTAL 2ND AND 3RD METATARSALS. MILD DIFFUSE SOFT TISSUE SWELLING. NO RADIOGRAPHIC FINDINGS OF OSTEOMYELITIS. Assessment and Plan - Diagnosis (1) Gangrene of right foot Is this a current diagnosis for this admission?: Yes Plan: IV fluid challenge, vancomycin and cefepime for coverage of MRSA and Pseudomonas, follow-up surgical consult (2) Diabetic foot infection Is this a current diagnosis for this admission?: Yes Plan: See #1 (3) Hyperkalemia Is this a current diagnosis for this admission?: Yes Plan: Without peak T waves, secondary to uncontrolled hyperglycemia. Follow-up chemistry (4) Sepsis Qualifiers: Sepsis type: sepsis due to unspecified organism Qualified Code(s): A41.9 - Sepsis, unspecified organism Is this a current diagnosis for this admission?: Yes Plan: Secondary to #1, IV fluid challenge, empiric antibiotics. Follow-up blood and wound culture, lactic acid and chemistry (5) Acute renal failure Is this a current diagnosis for this admission?: Yes Plan: Secondary to #1, IV fluid challenge, avoid nephrotoxic meds and doses follow-up chemistry - Time Time Spent with patient: 35 or more minutes
[2019-03-16 05:48] LABS: CHOLESTEROL 146.87 mg/dL (0-200); TRIGLYCERIDES 110 mg/dL (<150)
[2019-03-16 05:59] LABS: DIRECT LDL 75 mg/dL (<100)
[2019-03-16] MEDS: HEPARIN SOD (PORCINE) 5,000 UNIT/ML 1 ML VIAL SUBCUT SCH ×3 (07:24→21:47)
[2019-03-16] MEDS: CEFEPIME 1 GM/D5W RTU 1 GM/50 ML RTUPB IV SCH ×2 (07:25→18:00)
[2019-03-16 09:30] LABS: HEMATOCRIT 31.4 % (37.9-51.0); HEMOGLOBIN 10.3 g/dL (13.5-17.0); MEAN CORPUSCULAR HEMOGLOBIN 26.3 pg (27.0-33.4); MEAN CORPUSCULAR HGB CONC 32.9 g/dL (32.0-36.0); MEAN CORPUSCULAR VOLUME 80 fl (80-97); PLATELET COUNT 445 10^3/uL (150-450); RED BLOOD COUNT 3.93 10^6/uL (4.35-5.55); RED CELL DISTRIBUTION WIDTH 14.4 % (11.5-14.0); WHITE BLOOD COUNT 20.8 10^3/uL (4.0-10.5)
[2019-03-16 09:47] LABS: ANION GAP 8 (5-19); BLOOD UREA NITROGEN 14 mg/dL (7-20); CALCIUM 8.7 mg/dL (8.4-10.2); CARBON DIOXIDE 27 mmol/L (22-30); CHLORIDE 102 mmol/L (98-107); GLUCOSE 82 mg/dL (75-110)
[2019-03-16 09:56] LABS: POTASSIUM 4.3 mmol/L (3.6-5.0)
[2019-03-16] MEDS: PANTOPRAZOLE SODIUM 40 MG VIAL IV SCH ×2 (09:59→21:59)
[2019-03-16] MEDS: DULOXETINE HCL 30 MG CAPSULE.DR PO SCH ×2 (09:59→22:00)
[2019-03-16] MEDS: DOCUSATE SODIUM 100 MG CAPSULE PO SCH ×2 (09:59→17:56)
[2019-03-16] MEDS: VANCOMYCIN HCL 1,250 MG in DEXTROSE 5%-WATER 250 ML IV SCH ×2 (10:00→21:59)
[2019-03-16 10:04] LABS: ABSOLUTE LYMPHOCYTES# (MANUAL) 2.3 10^3/uL (0.5-4.7); ABSOLUTE MONOCYTES # (MANUAL) 1.2 10^3/uL (0.1-1.4); BASOPHILS % (MANUAL) 0 % (0-2); EOSINOPHILS % (MANUAL) 0 % (0-6); LYMPHOCYTES % (MANUAL) 11 % (13-45); MONOCYTES % (MANUAL) 6 % (3-13); SEGMENTED NEUTROPHILS % (MAN) 83 % (42-78); TOTAL CELLS COUNTED 100
[2019-03-16 10:05] LABS: ANISOCYTOSIS SLIGHT; PLATELET COMMENT ADEQUATE
[2019-03-16 10:06] LABS: POLYCHROMASIA SLIGHT
[2019-03-16 10:07] LABS: PLATELET LARGE PRESENT
[2019-03-16] MEDS: INSULIN LISPRO 100 UNIT/ML 3 ML VIAL SUBCUT SCH ×3 (10:12→17:56)
[2019-03-16] MEDS: ONDANSETRON HCL INJ/PF 4 MG/2 ML SDV IV PRN ×2 (13:09→23:04)
[2019-03-16] MEDS: MAG HYDROX/AL HYDROX/SIMETH SUSP 30 ML UDCUP PO PRN (18:08)
[2019-03-16] MEDS: MORPHINE SULFATE 10 MG/ML INJ IV PRN ×2 (18:46→22:59)
[2019-03-16] MEDS ORDERED: AMLODIPINE BESYLATE 10 MG TABLET PO SCH (22:00)
[2019-03-17] MEDS: INSULIN LISPRO 100 UNIT/ML 3 ML VIAL SUBCUT SCH ×5 (00:21→17:47)
[2019-03-17 05:23] LABS: ABSOLUTE EOSINOPHILS # (AUTO) 0.1 10^3/uL (0.0-0.6); ABSOLUTE LYMPHOCYTES (AUTO) 1.4 10^3/uL (0.5-4.7); ABSOLUTE MONOCYTES (AUTO) 1.8 10^3/uL (0.1-1.4); ABSOLUTE NEUT (AUTO) 14.8 10^3/uL (1.7-8.2); BASOPHILS % (AUTO) 0.2 % (0-2); EOSINOPHILS % (AUTO) 0.3 % (0-6); HEMATOCRIT 30.7 % (37.9-51.0); HEMOGLOBIN 10.1 g/dL (13.5-17.0); LYMPHOCYTES % (AUTO) 7.7 % (13-45); MEAN CORPUSCULAR HEMOGLOBIN 26.3 pg (27.0-33.4); MEAN CORPUSCULAR HGB CONC 32.7 g/dL (32.0-36.0); MEAN CORPUSCULAR VOLUME 80 fl (80-97); MONOCYTES % (AUTO) 9.9 % (3-13); PLATELET COUNT 434 10^3/uL (150-450); RED BLOOD COUNT 3.83 10^6/uL (4.35-5.55); RED CELL DISTRIBUTION WIDTH 14.3 % (11.5-14.0); SEGMENTED NEUTROPHILS % (AUTO) 81.9 % (42-78); TOTAL CELLS COUNTED % (AUTO) 100 %
[2019-03-17 05:41] LABS: ANION GAP 11 (5-19); BLOOD UREA NITROGEN 13 mg/dL (7-20); CALCIUM 8.4 mg/dL (8.4-10.2); CARBON DIOXIDE 25 mmol/L (22-30); CHLORIDE 98 mmol/L (98-107); CHOLESTEROL 148.75 mg/dL (0-200); GLUCOSE 203 mg/dL (75-110); POTASSIUM 4.6 mmol/L (3.6-5.0); TRIGLYCERIDES 134 mg/dL (<150)
[2019-03-17] MEDS: HEPARIN SOD (PORCINE) 5,000 UNIT/ML 1 ML VIAL SUBCUT SCH ×3 (05:49→22:55)
[2019-03-17 05:52] LABS: DIRECT LDL 89 mg/dL (<100)
[2019-03-17] MEDS: MORPHINE SULFATE 10 MG/ML INJ IV PRN ×4 (06:01→19:41)
[2019-03-17] MEDS: CEFEPIME 1 GM/D5W RTU 1 GM/50 ML RTUPB IV SCH ×2 (06:01→17:48)
[2019-03-17] MEDS ORDERED: LIDOCAINE 1% INJ-PF (10 MG/ML) 30 ML SDV ONE (07:50)
[2019-03-17] MEDS ORDERED: LIDOCAINE 2% INJ-PF (20 MG/ML) 10 ML AMPUL ONE (07:53)
[2019-03-17] MEDS ORDERED: MIDAZOLAM 2 MG/2 ML INJ ONE (07:53)
[2019-03-17] MEDS ORDERED: FENTANYL CITRATE INJ/PF 100 MCG/2 ML AMPUL ONE (07:53)
[2019-03-17] MEDS ORDERED: KETAMINE HCL INJ 500 MG/10 ML VIAL ONE (07:53)
[2019-03-17] MEDS ORDERED: ONDANSETRON HCL INJ/PF 4 MG/2 ML SDV ONE (07:54)
[2019-03-17] MEDS ORDERED: PROPOFOL INJ 200 MG/20 ML VIAL IV ONE (07:54)
[2019-03-17] MEDS ORDERED: METOCLOPRAMIDE HCL INJ/PF 10 MG/2 ML SDV ONE (08:18)
[2019-03-17] MEDS ORDERED: FAMOTIDINE INJ/PF 20 MG/2 ML SDV IV ONE ×2 (08:22→08:27)
[2019-03-17] MEDS ORDERED: LORAZEPAM INJ 2 MG/1 ML VIAL ONE (08:36)
[2019-03-17] MEDS ORDERED: ONDANSETRON HCL INJ/PF 4 MG/2 ML SDV IV PRN (09:00)
[2019-03-17] MEDS ORDERED: FENTANYL CITRATE INJ/PF 100 MCG/2 ML AMPUL IV PRN ×3 (09:00)
[2019-03-17] MEDS ORDERED: DIPHENHYDRAMINE HCL 50 MG/ML VIAL IV PRN (09:00)
[2019-03-17] MEDS ORDERED: PROMETHAZINE HCL INJ 25 MG/1 ML VIAL IV PRN (09:00)
--- NOTE | 2019-03-17 09:17 | Operative Report ---
Operative Report DATE OF SURGERY: 03/17/19 PREOPERATIVE DIAGNOSIS: Septic diabetic right foot with multiple toe fractures POSTOPERATIVE DIAGNOSIS: Same with active infection confined to first great toe OPERATION: Open right first ray amputation and wound packing SURGEON: MARCOS ANDRADE ANESTHESIA: Spinal TISSUE REMOVED OR ALTERED: Right first toe, and portions of the first metatarsal head COMPLICATIONS: None ESTIMATED BLOOD LOSS: 30 cc INTRAOPERATIVE FINDINGS: See below PROCEDURE: Patient was seen in the preop holding area the right foot was marked to the main operating room where spinal anesthesia was induced. Placed in the supine position right foot prepped and draped in sterile fashion. Surgical plan surgical timeout were conducted. The findings were significant for a septic right first toe, generalized swelling and erythema of the forefoot. Toes 2,3,4 and 5 were grossly intact without open wound or ulceration, or significant cellulitis. Therefore my plan at this point was to amputate the right great toe, and further assess the soft tissue proximally The right great toe was amputated at the webspace. The first metatarsal head was amputated with the bone cutter. Rondure was used to take the metatarsal back by about one third. Digital vessels were cauterized as encountered. Subcutaneous tissue, fascia debrided with scissors, and electrocautery. The open wound was irrigated multiple times, probed carefully. There was no evidence of active pus, or tracking or subcutaneous gas extending dorsally or on the plantar surface of the foot. The remaining toes appeared viable. Of note the patient has fractures of the distal metatarsal bones 2 and 3 involving the head. Nonetheless I felt like today, the initial damage control operation for sepsis management was appropriately executed. The right great toe amputation wound was left open, dressed with Surgicel, half- inch iodoform packing, 4 x 4's, Kerlix and an Omar wrap. Patient tolerated the procedure well. He will return to the floor, with foot elevated intravenous antibiotics. We will follow-up on intraoperative wound cultures. Additional debridement may be required pending condition of foot in the next 24 to 48 hours.
[2019-03-17] MEDS: DULOXETINE HCL 30 MG CAPSULE.DR PO SCH ×2 (10:20→22:54)
[2019-03-17] MEDS: ONDANSETRON HCL INJ/PF 4 MG/2 ML SDV IV PRN (10:20)
[2019-03-17] MEDS: DOCUSATE SODIUM 100 MG CAPSULE PO SCH ×2 (10:21→17:39)
[2019-03-17] MEDS: PANTOPRAZOLE SODIUM 40 MG VIAL IV SCH ×2 (10:21→22:54)
[2019-03-17] MEDS: VANCOMYCIN HCL 1,250 MG in DEXTROSE 5%-WATER 250 ML IV SCH ×2 (10:49→22:54)
[2019-03-17] MEDS: INSULIN GLARGINE,HUM.REC.ANLOG 1,000 UNIT/10 ML VIAL SUBCUT SCH (10:49)
[2019-03-17 11:34] LABS: VANCOMYCIN,TROUGH 11.5 ug/mL (5.0-20.0)
--- NOTE | 2019-03-17 14:36 | PDOC PROGRESS REPORT ---
Subjective Progress Note for:: 03/17/19 Subjective:: This is a 49 year old male with a past medical history of former alcoholism with gastritis and upper GI bleed, peripheral vascular disease, peripheral neuropathy and poorly controlled insulin-dependent diabetes admitted for sepsis secondary to infected diabetic right foot ulcer. Patient underwent ray amputation this morning. No acute event overnight. Upon encounter, she feels better. No fever chills. Reason For Visit: SEPSIS,ACUTE RENAL FAILURE,HYPERKALEMIA,DIABETIC Physical Exam Vital Signs: Temp Pulse Resp BP Pulse Ox 98.9 F 107 H 18 144/85 H 91 L 03/17/19 07:30 03/17/19 07:30 03/17/19 07:30 03/17/19 07:30 03/17/19 07:30 Intake & Output 03/16/19 03/17/19 03/18/19 06:59 06:59 06:59 Intake Total 2050 2250 1050 Output Total 925 10 Balance 1125 2250 1040 Weight 213 lb 10.047 oz 213 lb 6.519 oz General appearance: PRESENT: no acute distress, well-developed, well-nourished Head exam: PRESENT: atraumatic, normocephalic Eye exam: PRESENT: conjunctiva pink, EOMI, PERRLA. ABSENT: scleral icterus Ear exam: PRESENT: normal external ear exam Mouth exam: PRESENT: moist, tongue midline Neck exam: ABSENT: carotid bruit, JVD, lymphadenopathy, thyromegaly Respiratory exam: PRESENT: clear to auscultation rian. ABSENT: rales, rhonchi, wheezes Cardiovascular exam: PRESENT: RRR. ABSENT: diastolic murmur, rubs, systolic murmur Pulses: PRESENT: normal dorsalis pedis pul GI/Abdominal exam: PRESENT: normal bowel sounds, soft. ABSENT: distended, guarding, mass, organolmegaly, rebound, tenderness Rectal exam: PRESENT: deferred Extremities exam: PRESENT: other - Postop dressing noted, no active discharge Neurological exam: PRESENT: alert, awake, oriented to person, oriented to place, oriented to time, oriented to situation, CN II-XII grossly intact. ABSENT: motor sensory deficit Results Laboratory Results: 03/17/19 04:43 03/17/19 04:43 07/19/19 07/20/19 07/20/19 15:10 04:43 04:43 WBC 18.0 H RBC 3.83 L Hgb 10.1 L Hct 30.7 L MCV 80 MCH 26.3 L MCHC 32.7 RDW 14.3 H Plt Count 434 Seg Neutrophils % 81.9 H Lymphocytes % 7.7 L Monocytes % 9.9 Eosinophils % 0.3 Basophils % 0.2 Absolute Neutrophils 14.8 H Absolute Lymphocytes 1.4 Absolute Monocytes 1.8 H Absolute Eosinophils 0.1 Absolute Basophils 0.0 Sodium 133.5 L Potassium 4.6 Chloride 98 Carbon Dioxide 25 Anion Gap 11 BUN 13 Creatinine 1.02 Est GFR ( Amer) > 60 Est GFR (Non-Af Amer) > 60 Glucose 203 H Lactic Acid 0.9 Calcium 8.4 Triglycerides 134 Cholesterol 148.75 LDL Cholesterol Direct 89 VLDL Cholesterol 27.0 HDL Cholesterol 26 L Impressions: Foot X-Ray 03/15/19 17:35 IMPRESSION: FRACTURES OF THE 1ST TOE AND DISTAL 2ND AND 3RD METATARSALS. MILD DIFFUSE SOFT TISSUE SWELLING. NO RADIOGRAPHIC FINDINGS OF OSTEOMYELITIS. Assessment and Plan - Diagnosis (1) Sepsis Qualifiers: Sepsis type: sepsis due to unspecified organism Qualified Code(s): A41.9 - Sepsis, unspecified organism Is this a current diagnosis for this admission?: Yes Plan: Improving. Secondary to infected diabetic right foot ulcer. Continue IV antibiotics. Status post ray amputation this morning. (2) Diabetic foot infection Is this a current diagnosis for this admission?: Yes Plan: As per #1. (3) Acute renal failure Is this a current diagnosis for this admission?: Yes Plan: Improving with IV fluids. Likely a combination of prerenal and septic ATN. Creatinine significantly improved from 1.5-1.0. Continue IV fluids and antibiotics. (4) Diabetes mellitus type 2 in nonobese Is this a current diagnosis for this admission?: Yes Plan: Resume insulin regimen. (5) Hypertension Qualifiers: Hypertension type: essential hypertension Qualified Code(s): I10 - Essential (primary) hypertension Is this a current diagnosis for this admission?: Yes Plan: Continue amlodipine. - Time Time Spent with patient: 25-34 minutes
[2019-03-17] MEDS ORDERED: INSULIN ASPART 15 UNIT SUBCUT SCH (16:00)
[2019-03-17] MEDS ORDERED: [UNRECOGNIZED DRUG - OTHER] SUBCUT SCH (17:00)
[2019-03-17] MEDS ORDERED: INSULIN DETEMIR 80 UNIT SUBCUT SCH (17:00)
[2019-03-18] MEDS: INSULIN LISPRO 100 UNIT/ML 3 ML VIAL SUBCUT SCH ×7 (00:09→22:53)
[2019-03-18] MEDS: ONDANSETRON HCL INJ/PF 4 MG/2 ML SDV IV PRN ×2 (00:26→20:20)
[2019-03-18] MEDS: MORPHINE SULFATE 10 MG/ML INJ IV PRN ×6 (00:26→22:59)
[2019-03-18] MEDS: HEPARIN SOD (PORCINE) 5,000 UNIT/ML 1 ML VIAL SUBCUT SCH ×3 (06:04→22:04)
[2019-03-18] MEDS: CEFEPIME 1 GM/D5W RTU 1 GM/50 ML RTUPB IV SCH ×2 (06:04→17:11)
[2019-03-18 06:33] LABS: ABSOLUTE BASOPHILS # (AUTO) 0.1 10^3/uL (0.0-0.2); ABSOLUTE EOSINOPHILS # (AUTO) 0.1 10^3/uL (0.0-0.6); ABSOLUTE LYMPHOCYTES (AUTO) 1.9 10^3/uL (0.5-4.7); ABSOLUTE MONOCYTES (AUTO) 1.4 10^3/uL (0.1-1.4); ABSOLUTE NEUT (AUTO) 10.3 10^3/uL (1.7-8.2); EOSINOPHILS % (AUTO) 1.1 % (0-6); HEMATOCRIT 29.4 % (37.9-51.0); HEMOGLOBIN 9.7 g/dL (13.5-17.0); LYMPHOCYTES % (AUTO) 13.5 % (13-45); MEAN CORPUSCULAR HEMOGLOBIN 26.3 pg (27.0-33.4); MEAN CORPUSCULAR VOLUME 80 fl (80-97); PLATELET COUNT 469 10^3/uL (150-450); RED BLOOD COUNT 3.69 10^6/uL (4.35-5.55); RED CELL DISTRIBUTION WIDTH 14.4 % (11.5-14.0); SEGMENTED NEUTROPHILS % (AUTO) 74.4 % (42-78); TOTAL CELLS COUNTED % (AUTO) 100 %; WHITE BLOOD COUNT 13.8 10^3/uL (4.0-10.5)
[2019-03-18 06:55] LABS: ANION GAP 8 (5-19); BLOOD UREA NITROGEN 12 mg/dL (7-20); CALCIUM 8.2 mg/dL (8.4-10.2); CARBON DIOXIDE 26 mmol/L (22-30); CHLORIDE 99 mmol/L (98-107); GLUCOSE 113 mg/dL (75-110); POTASSIUM 4.3 mmol/L (3.6-5.0)
[2019-03-18] MEDS: INSULIN GLARGINE,HUM.REC.ANLOG 1,000 UNIT/10 ML VIAL SUBCUT SCH (09:52)
[2019-03-18] MEDS: VANCOMYCIN HCL 1,250 MG in DEXTROSE 5%-WATER 250 ML IV SCH ×2 (09:52→22:04)
[2019-03-18] MEDS: PANTOPRAZOLE SODIUM 40 MG VIAL IV SCH ×2 (09:52→22:04)
[2019-03-18] MEDS: AMLODIPINE BESYLATE 5 MG TABLET PO SCH (09:52)
[2019-03-18] MEDS: DULOXETINE HCL 30 MG CAPSULE.DR PO SCH ×2 (09:52→22:04)
[2019-03-18] MEDS: DOCUSATE SODIUM 100 MG CAPSULE PO SCH ×2 (09:53→17:11)
[2019-03-18] MEDS ORDERED: AMLODIPINE BESYLATE 10 MG TABLET PO SCH (10:00)
--- NOTE | 2019-03-18 11:11 | PDOC PROGRESS REPORT ---
Subjective Progress Note for:: 03/18/19 Subjective:: less pains amp site right 1st toe Reason For Visit: SEPSIS,ACUTE RENAL FAILURE,HYPERKALEMIA,DIABETIC Physical Exam Vital Signs: Temp Pulse Resp BP Pulse Ox 99.5 F 88 17 136/78 H 92 03/18/19 08:00 03/18/19 08:00 03/18/19 08:00 03/18/19 03:59 03/18/19 08:00 Intake & Output 03/17/19 03/18/19 03/19/19 06:59 06:59 06:59 Intake Total 2250 3720 Output Total 2170 Balance 2250 1550 Weight 96.8 kg 96.7 kg Exam: Dressing removed and looks clean and dry A wound Vac was then placed Results Laboratory Results: 03/18/19 05:58 03/18/19 05:58 03/18/19 03/18/19 05:58 05:58 WBC 13.8 H RBC 3.69 L Hgb 9.7 L Hct 29.4 L MCV 80 MCH 26.3 L MCHC 33.0 RDW 14.4 H Plt Count 469 H Seg Neutrophils % 74.4 Lymphocytes % 13.5 Monocytes % 10.0 Eosinophils % 1.1 Basophils % 1.0 Absolute Neutrophils 10.3 H Absolute Lymphocytes 1.9 Absolute Monocytes 1.4 Absolute Eosinophils 0.1 Absolute Basophils 0.1 Sodium 132.7 L Potassium 4.3 Chloride 99 Carbon Dioxide 26 Anion Gap 8 BUN 12 Creatinine 1.00 Est GFR ( Amer) > 60 Est GFR (Non-Af Amer) > 60 Glucose 113 H Calcium 8.2 L Impressions: Foot X-Ray 03/15/19 17:35 IMPRESSION: FRACTURES OF THE 1ST TOE AND DISTAL 2ND AND 3RD METATARSALS. MILD DIFFUSE SOFT TISSUE SWELLING. NO RADIOGRAPHIC FINDINGS OF OSTEOMYELITIS. Assessment & Plan - Diagnosis (1) Diabetic foot infection Is this a current diagnosis for this admission?: Yes - Time Time Spent with patient: 15-24 minutes - Inpatient Certification Medical Necessity: Need For IV Fluids, Need For Continuous Telemetry Monitoring - Plan Summary Plan Summary: Wound VAC applied change in 3 days Continue IV antibiotics
--- NOTE | 2019-03-18 14:01 | PDOC PROGRESS REPORT ---
Subjective Progress Note for:: 03/18/19 Subjective:: This is a 49 year old male with a past medical history of former alcoholism with gastritis and upper GI bleed, peripheral vascular disease, peripheral neuropathy and poorly controlled insulin-dependent diabetes admitted for sepsis secondary to infected diabetic right foot ulcer. 03/17: Patient underwent ray amputation this morning. Upon encounter, she feels better. No fever chills. 03/18: No acute event overnight. He continues to do well. Pain is well control led. Surgery is planning to proceed with wound VAC placement today. Reason For Visit: SEPSIS,ACUTE RENAL FAILURE,HYPERKALEMIA,DIABETIC Physical Exam Vital Signs: Temp Pulse Resp BP Pulse Ox 99.5 F 88 17 136/78 H 92 03/18/19 08:00 03/18/19 08:00 03/18/19 08:00 03/18/19 03:59 03/18/19 08:00 Intake & Output 03/17/19 03/18/19 03/19/19 06:59 06:59 06:59 Intake Total 2250 3720 Output Total 2170 Balance 2250 1550 Weight 213 lb 6.519 oz 213 lb 2.992 oz General appearance: PRESENT: no acute distress, well-developed, well-nourished Head exam: PRESENT: atraumatic, normocephalic Eye exam: PRESENT: conjunctiva pink, EOMI, PERRLA. ABSENT: scleral icterus Ear exam: PRESENT: normal external ear exam Mouth exam: PRESENT: moist, tongue midline Neck exam: ABSENT: carotid bruit, JVD, lymphadenopathy, thyromegaly Respiratory exam: PRESENT: clear to auscultation rian. ABSENT: rales, rhonchi, wheezes Cardiovascular exam: PRESENT: RRR. ABSENT: diastolic murmur, rubs, systolic murmur Pulses: PRESENT: normal dorsalis pedis pul GI/Abdominal exam: PRESENT: normal bowel sounds, soft. ABSENT: distended, guarding, mass, organolmegaly, rebound, tenderness Rectal exam: PRESENT: deferred Extremities exam: PRESENT: full ROM, other - Postop dressings in place Neurological exam: PRESENT: alert, awake, oriented to person, oriented to place, oriented to time, oriented to situation, CN II-XII grossly intact. ABSENT: motor sensory deficit Results Laboratory Results: 03/18/19 05:58 03/18/19 05:58 03/18/19 03/18/19 05:58 05:58 WBC 13.8 H RBC 3.69 L Hgb 9.7 L Hct 29.4 L MCV 80 MCH 26.3 L MCHC 33.0 RDW 14.4 H Plt Count 469 H Seg Neutrophils % 74.4 Lymphocytes % 13.5 Monocytes % 10.0 Eosinophils % 1.1 Basophils % 1.0 Absolute Neutrophils 10.3 H Absolute Lymphocytes 1.9 Absolute Monocytes 1.4 Absolute Eosinophils 0.1 Absolute Basophils 0.1 Sodium 132.7 L Potassium 4.3 Chloride 99 Carbon Dioxide 26 Anion Gap 8 BUN 12 Creatinine 1.00 Est GFR ( Amer) > 60 Est GFR (Non-Af Amer) > 60 Glucose 113 H Calcium 8.2 L Impressions: Foot X-Ray 03/15/19 17:35 IMPRESSION: FRACTURES OF THE 1ST TOE AND DISTAL 2ND AND 3RD METATARSALS. MILD DIFFUSE SOFT TISSUE SWELLING. NO RADIOGRAPHIC FINDINGS OF OSTEOMYELITIS. Assessment and Plan - Diagnosis (1) Sepsis Qualifiers: Sepsis type: sepsis due to unspecified organism Qualified Code(s): A41.9 - Sepsis, unspecified organism Is this a current diagnosis for this admission?: Yes Plan: Resolving. Secondary to infected diabetic right foot ulcer. Continue IV antibiotics. Wound cultures pending. Status post ray amputation on 03/17/19. (2) Diabetic foot infection Is this a current diagnosis for this admission?: Yes Plan: 03/18: Surgery is planning to proceed with wound VAC placement today. (3) Acute renal failure Is this a current diagnosis for this admission?: Yes Plan: Improving with IV fluids. Likely a combination of prerenal and septic ATN. Creatinine significantly improved from 1.5 to 1.0. Continue IV fluids and antibiotics. 03/18: Resolved. Creatinine now back to baseline. (4) Diabetes mellitus type 2 in nonobese Is this a current diagnosis for this admission?: Yes Plan: Sugars at goal. Continue Lantus and Humalog. (5) Hypertension Qualifiers: Hypertension type: essential hypertension Qualified Code(s): I10 - Essential (primary) hypertension Is this a current diagnosis for this admission?: Yes Plan: Continue amlodipine. - Time Time Spent with patient: 25-34 minutes
[2019-03-18] MEDS ORDERED: PANTOPRAZOLE SODIUM 40 MG VIAL IV SCH (22:00)
[2019-03-19] MEDS: MORPHINE SULFATE 10 MG/ML INJ IV PRN ×5 (04:17→21:37)
[2019-03-19 05:03] LABS: ABSOLUTE BASOPHILS # (AUTO) 0.1 10^3/uL (0.0-0.2); ABSOLUTE EOSINOPHILS # (AUTO) 0.2 10^3/uL (0.0-0.6); ABSOLUTE LYMPHOCYTES (AUTO) 1.7 10^3/uL (0.5-4.7); ABSOLUTE MONOCYTES (AUTO) 1.3 10^3/uL (0.1-1.4); ABSOLUTE NEUT (AUTO) 7.2 10^3/uL (1.7-8.2); BASOPHILS % (AUTO) 1.3 % (0-2); EOSINOPHILS % (AUTO) 2.2 % (0-6); HEMATOCRIT 29.5 % (37.9-51.0); HEMOGLOBIN 9.8 g/dL (13.5-17.0); LYMPHOCYTES % (AUTO) 15.8 % (13-45); MEAN CORPUSCULAR HEMOGLOBIN 26.6 pg (27.0-33.4); MEAN CORPUSCULAR HGB CONC 33.4 g/dL (32.0-36.0); MEAN CORPUSCULAR VOLUME 80 fl (80-97); MONOCYTES % (AUTO) 12.1 % (3-13); PLATELET COUNT 461 10^3/uL (150-450); RED CELL DISTRIBUTION WIDTH 14.4 % (11.5-14.0); SEGMENTED NEUTROPHILS % (AUTO) 68.6 % (42-78); TOTAL CELLS COUNTED % (AUTO) 100 %; WHITE BLOOD COUNT 10.5 10^3/uL (4.0-10.5)
[2019-03-19] MEDS: CEFEPIME 1 GM/D5W RTU 1 GM/50 ML RTUPB IV SCH ×2 (05:10→17:13)
[2019-03-19] MEDS: HEPARIN SOD (PORCINE) 5,000 UNIT/ML 1 ML VIAL SUBCUT SCH ×3 (05:10→21:38)
[2019-03-19 05:24] LABS: ANION GAP 7 (5-19); BLOOD UREA NITROGEN 11 mg/dL (7-20); CALCIUM 8.4 mg/dL (8.4-10.2); CARBON DIOXIDE 28 mmol/L (22-30); CHLORIDE 99 mmol/L (98-107); GLUCOSE 139 mg/dL (75-110); POTASSIUM 4.6 mmol/L (3.6-5.0)
[2019-03-19] MEDS: INSULIN LISPRO 100 UNIT/ML 3 ML VIAL SUBCUT SCH ×4 (07:36→21:38)
[2019-03-19] MEDS: INSULIN GLARGINE,HUM.REC.ANLOG 1,000 UNIT/10 ML VIAL SUBCUT SCH (09:41)
[2019-03-19] MEDS: DOCUSATE SODIUM 100 MG CAPSULE PO SCH ×2 (09:41→17:13)
[2019-03-19] MEDS: DULOXETINE HCL 30 MG CAPSULE.DR PO SCH ×2 (09:41→21:38)
[2019-03-19] MEDS: VANCOMYCIN HCL 1,250 MG in DEXTROSE 5%-WATER 250 ML IV SCH ×2 (09:41→21:38)
[2019-03-19] MEDS: AMLODIPINE BESYLATE 5 MG TABLET PO SCH (09:41)
--- NOTE | 2019-03-19 09:50 | PDOC PROGRESS REPORT ---
Subjective Progress Note for:: 03/19/19 Subjective:: Patient is 2 days status post right great toe amputation, wound left open, wound VAC placed doing well, with adequate pain control. Reason For Visit: SEPSIS,ACUTE RENAL FAILURE,HYPERKALEMIA,DIABETIC Physical Exam Vital Signs: Temp Pulse Resp BP Pulse Ox 98.7 F 87 16 137/85 H 90 L 03/19/19 04:00 03/19/19 07:00 03/19/19 04:00 03/19/19 04:00 03/19/19 04:00 Intake & Output 03/18/19 03/19/19 03/20/19 06:59 06:59 06:59 Intake Total 3720 1570 Output Total 2170 2200 Balance 1550 -630 Weight 96.7 kg General appearance: PRESENT: no acute distress Musculoskeletal exam: PRESENT: other - Right foot exam and symptom back in place; and edema to the right forefoot. Results Laboratory Results: 03/19/19 04:29 03/19/19 04:29 03/19/19 03/19/19 04:29 04:29 WBC 10.5 RBC 3.70 L Hgb 9.8 L Hct 29.5 L MCV 80 MCH 26.6 L MCHC 33.4 RDW 14.4 H Plt Count 461 H Seg Neutrophils % 68.6 Lymphocytes % 15.8 Monocytes % 12.1 Eosinophils % 2.2 Basophils % 1.3 Absolute Neutrophils 7.2 Absolute Lymphocytes 1.7 Absolute Monocytes 1.3 Absolute Eosinophils 0.2 Absolute Basophils 0.1 Sodium 134.3 L Potassium 4.6 Chloride 99 Carbon Dioxide 28 Anion Gap 7 BUN 11 Creatinine 0.95 Est GFR ( Amer) > 60 Est GFR (Non-Af Amer) > 60 Glucose 139 H Calcium 8.4 Impressions: Foot X-Ray 03/15/19 17:35 IMPRESSION: FRACTURES OF THE 1ST TOE AND DISTAL 2ND AND 3RD METATARSALS. MILD DIFFUSE SOFT TISSUE SWELLING. NO RADIOGRAPHIC FINDINGS OF OSTEOMYELITIS. Assessment & Plan - Diagnosis (1) Diabetic foot infection Is this a current diagnosis for this admission?: Yes Plan: Impression: Patient now 2 days status post right great toe amputation, left open, now with VAC therapy; on empiric antibiotic therapy; cultures pending-no growth so far. Recommendations: 1. Continue wound VAC therapy; follow-up on cultures 2. No indication for further surgical intervention at this time.
[2019-03-19] MEDS: PANTOPRAZOLE SODIUM 40 MG VIAL IV SCH ×2 (10:09→21:38)
--- NOTE | 2019-03-19 14:44 | PDOC PROGRESS REPORT ---
Subjective Progress Note for:: 03/19/19 Subjective:: This is a 49 year old male with a past medical history of former alcoholism with gastritis and upper GI bleed, peripheral vascular disease, peripheral neuropathy and poorly controlled insulin-dependent diabetes admitted for sepsis secondary to infected diabetic right foot ulcer. 03/17: Patient underwent ray amputation this morning. Upon encounter, she feels better. No fever chills. 03/18: He continues to do well. Pain is well controlled. Surgery is planning to proceed with wound VAC placement today. 03/19: No acute event overnight. He denies acute complaints. He continues to do well. He had wound VAC placement yesterday. Wound culture is growing gram- positive cocci and gram-negative rods. Reason For Visit: SEPSIS,ACUTE RENAL FAILURE,HYPERKALEMIA,DIABETIC Physical Exam Vital Signs: Temp Pulse Resp BP Pulse Ox 98.5 F 87 18 138/82 H 91 L 03/19/19 11:10 03/19/19 11:10 03/19/19 11:10 03/19/19 11:10 03/19/19 11:10 Intake & Output 03/18/19 03/19/19 03/20/19 06:59 06:59 06:59 Intake Total 3720 1570 1170 Output Total 2170 2200 550 Balance 1550 -630 620 Weight 213 lb 2.992 oz General appearance: PRESENT: no acute distress, well-developed, well-nourished Head exam: PRESENT: atraumatic, normocephalic Eye exam: PRESENT: conjunctiva pink, EOMI, PERRLA. ABSENT: scleral icterus Ear exam: PRESENT: normal external ear exam Mouth exam: PRESENT: moist, tongue midline Neck exam: ABSENT: carotid bruit, JVD, lymphadenopathy, thyromegaly Respiratory exam: PRESENT: clear to auscultation rian. ABSENT: rales, rhonchi, wheezes Cardiovascular exam: PRESENT: RRR. ABSENT: diastolic murmur, rubs, systolic murmur Pulses: PRESENT: normal dorsalis pedis pul GI/Abdominal exam: PRESENT: normal bowel sounds, soft. ABSENT: distended, guarding, mass, organolmegaly, rebound, tenderness Rectal exam: PRESENT: deferred Musculoskeletal exam: PRESENT: other - Wound VAC in place Neurological exam: PRESENT: alert, awake, oriented to person, oriented to place, oriented to time, oriented to situation, CN II-XII grossly intact. ABSENT: motor sensory deficit Results Laboratory Results: 03/19/19 04:29 03/19/19 04:29 03/19/19 03/19/19 04:29 04:29 WBC 10.5 RBC 3.70 L Hgb 9.8 L Hct 29.5 L MCV 80 MCH 26.6 L MCHC 33.4 RDW 14.4 H Plt Count 461 H Seg Neutrophils % 68.6 Lymphocytes % 15.8 Monocytes % 12.1 Eosinophils % 2.2 Basophils % 1.3 Absolute Neutrophils 7.2 Absolute Lymphocytes 1.7 Absolute Monocytes 1.3 Absolute Eosinophils 0.2 Absolute Basophils 0.1 Sodium 134.3 L Potassium 4.6 Chloride 99 Carbon Dioxide 28 Anion Gap 7 BUN 11 Creatinine 0.95 Est GFR ( Amer) > 60 Est GFR (Non-Af Amer) > 60 Glucose 139 H Calcium 8.4 Impressions: Foot X-Ray 03/15/19 17:35 IMPRESSION: FRACTURES OF THE 1ST TOE AND DISTAL 2ND AND 3RD METATARSALS. MILD DIFFUSE SOFT TISSUE SWELLING. NO RADIOGRAPHIC FINDINGS OF OSTEOMYELITIS. Assessment and Plan - Diagnosis (1) Sepsis Qualifiers: Sepsis type: sepsis due to unspecified organism Qualified Code(s): A41.9 - Sepsis, unspecified organism Is this a current diagnosis for this admission?: Yes Plan: Resolving. Secondary to infected diabetic right foot ulcer. Continue IV a ntibiotics. Wound cultures pending. Status post ray amputation on 03/17/19. 03/19: Wound culture is growing gram-positive cocci and gram-negative rods. De- escalate pending final culture results. Anticipate discharge in the next 24-48 hrs. (2) Diabetic foot infection Is this a current diagnosis for this admission?: Yes Plan: S/P wound VAC placement on 03/19. (3) Acute renal failure Is this a current diagnosis for this admission?: Yes Plan: Improving with IV fluids. Likely a combination of prerenal and septic ATN. Creatinine significantly improved from 1.5 to 1.0. Continue IV fluids and antibiotics. 03/18: Resolved. Creatinine now back to baseline. 03/19: Resolved. DC IV fluids. (4) Diabetes mellitus type 2 in nonobese Is this a current diagnosis for this admission?: Yes Plan: 03/18: Premeal coverage held due to hypoglycemic episodes. He did say he was only eating less when he had the hypoglycemia. Resume when sugars are better. (5) Hypertension Qualifiers: Hypertension type: essential hypertension Qualified Code(s): I10 - Essential (primary) hypertension Is this a current diagnosis for this admission?: Yes Plan: Continue amlodipine. - Time Time Spent with patient: 25-34 minutes
[2019-03-19] MEDS: MAG HYDROX/AL HYDROX/SIMETH SUSP 30 ML UDCUP PO PRN (19:46)
[2019-03-20] MEDS: MORPHINE SULFATE 10 MG/ML INJ IV PRN ×6 (02:38→23:05)
[2019-03-20] MEDS: CEFEPIME 1 GM/D5W RTU 1 GM/50 ML RTUPB IV SCH ×2 (05:59→18:58)
[2019-03-20] MEDS: HEPARIN SOD (PORCINE) 5,000 UNIT/ML 1 ML VIAL SUBCUT SCH ×3 (05:59→21:58)
[2019-03-20] MEDS: INSULIN LISPRO 100 UNIT/ML 3 ML VIAL SUBCUT SCH ×4 (08:00→21:52)
[2019-03-20] MEDS: DOCUSATE SODIUM 100 MG CAPSULE PO SCH ×2 (10:45→18:57)
[2019-03-20] MEDS: DULOXETINE HCL 30 MG CAPSULE.DR PO SCH ×2 (10:45→21:58)
[2019-03-20] MEDS: PANTOPRAZOLE SODIUM 40 MG VIAL IV SCH ×2 (10:46→21:58)
[2019-03-20] MEDS: AMLODIPINE BESYLATE 5 MG TABLET PO SCH (10:46)
[2019-03-20] MEDS: INSULIN GLARGINE,HUM.REC.ANLOG 1,000 UNIT/10 ML VIAL SUBCUT SCH (10:52)
--- NOTE | 2019-03-20 11:03 | PDOC PROGRESS REPORT ---
Subjective Progress Note for:: 03/20/19 Subjective:: 49 year old male with a past medical history of former alcoholism with gastritis and upper GI bleed, peripheral vascular disease, peripheral neuropathy and poorly controlled insulin-dependent diabetes admitted for sepsis secondary to infected diabetic right foot ulcer. 03/17: Patient underwent ray amputation this morning. Upon encounter, she feels better. No fever chills. 03/18: He continues to do well. Pain is well controlled. Surgery is planning to proceed with wound VAC placement today. 03/19: No acute event overnight. He denies acute complaints. He continues to do well. He had wound VAC placement yesterday. Wound culture is growing gram- positive cocci and gram-negative rods. 03/20/2019-no acute events in the last 24 hrs. s/p rt great toe removal with wound vac cultures growing enterococcus ,enterobactor, staph on vanc and zosyn Reason For Visit: SEPSIS,ACUTE RENAL FAILURE,HYPERKALEMIA,DIABETIC Physical Exam Vital Signs: Temp Pulse Resp BP Pulse Ox 98.9 F 88 18 136/81 H 91 L 03/20/19 07:15 03/20/19 07:15 03/20/19 07:15 03/20/19 07:15 03/20/19 07:15 Intake & Output 03/19/19 03/20/19 03/21/19 06:59 06:59 06:59 Intake Total 1570 1886 Output Total 2200 0 Balance -630 -164 Weight 76.9 kg General appearance: PRESENT: no acute distress Head exam: PRESENT: atraumatic Eye exam: PRESENT: PERRLA Mouth exam: PRESENT: moist, tongue midline Teeth exam: PRESENT: poor dentation Neck exam: ABSENT: carotid bruit, JVD, lymphadenopathy, thyromegaly Respiratory exam: PRESENT: clear to auscultation rian. ABSENT: rales, rhonchi, wheezes Cardiovascular exam: PRESENT: RRR. ABSENT: diastolic murmur, rubs, systolic murmur Pulses: PRESENT: other - peripheral pulses are poor GI/Abdominal exam: PRESENT: normal bowel sounds, soft. ABSENT: distended, guarding, mass, organolmegaly, rebound, tenderness Rectal exam: PRESENT: deferred Extremities exam: PRESENT: other - wound vac attached to rt great toe Neurological exam: PRESENT: alert, awake, oriented to person, oriented to place, oriented to time, oriented to situation, CN II-XII grossly intact. ABSENT: motor sensory deficit Results Laboratory Results: 03/19/19 04:29 03/19/19 04:29 03/17/19 08:57 Toe - Right Big Toe Gram Stain - Final Impressions: Foot X-Ray 03/15/19 17:35 IMPRESSION: FRACTURES OF THE 1ST TOE AND DISTAL 2ND AND 3RD METATARSALS. MILD DIFFUSE SOFT TISSUE SWELLING. NO RADIOGRAPHIC FINDINGS OF OSTEOMYELITIS. Assessment and Plan - Diagnosis (1) Gangrene of right foot Is this a current diagnosis for this admission?: Yes Plan: IV fluid challenge, vancomycin and cefepime for coverage of MRSA and Pseudomonas, follow-up surgical consult 03/20/2019- rt great toe gangrene s/p rt great toe amputation on wound vac. presently on vanc and zosyn (2) Hyperglycemia due to type 2 diabetes mellitus Qualifiers: Diabetes mellitus halfway insulin use: with termite control servicer use Qualified Code(s): E11.65 - Type 2 diabetes mellitus with hyperglycemia; Z79.4 - rodent exterminator (current) use of insulin Is this a current diagnosis for this admission?: No Plan: 03/20/2019- h/o type 2 dm .latest blood sugar is 73 plan is to continue lantus 40 and insulin sliding scale. (3) Hypertension Qualifiers: Hypertension type: essential hypertension Qualified Code(s): I10 - Essential (primary) hypertension Is this a current diagnosis for this admission?: Yes Plan: Continue amlodipine. 03/20/2019- latest bp is 136/85 to continue amlodepine. (4) Hyperkalemia Is this a current diagnosis for this admission?: Yes Plan: Without peak T waves, secondary to uncontrolled hyperglycemia. Follow-up chemistry 03/20/2019- latest potassium is 4.6 and hyperkalemia resolved. - Time Time Spent with patient: 25-34 minutes Anticipated discharge: Home
[2019-03-20] MEDS: VANCOMYCIN HCL 1,250 MG in DEXTROSE 5%-WATER 250 ML IV SCH ×2 (11:05→21:58)
--- NOTE | 2019-03-20 17:56 | PDOC PROGRESS REPORT ---
Subjective Progress Note for:: 03/20/19 Subjective:: less pains amputation site Reason For Visit: SEPSIS,ACUTE RENAL FAILURE,HYPERKALEMIA,DIABETIC Physical Exam Vital Signs: Temp Pulse Resp BP Pulse Ox 98.6 F 86 18 130/86 H 96 03/20/19 15:25 03/20/19 15:25 03/20/19 15:25 03/20/19 15:25 03/20/19 15:25 Intake & Output 03/19/19 03/20/19 03/21/19 06:59 06:59 06:59 Intake Total 1570 1886 900 Output Total 2200 2050 1100 Balance -630 -164 -200 Weight 76.9 kg Exam: Wound vac removed. The amp site looks clean and dry but not much granulation tissue yet Results Laboratory Results: 03/19/19 04:29 03/19/19 04:29 03/17/19 08:57 Toe - Right Big Toe Gram Stain - Final 03/17/19 08:57 Toe - Right Big Toe Wound Culture - Final Staphylococcus Sciuri Enterococcus Faecalis(Group D) Enterobacter Cloacae Finegoldia Species Impressions: Foot X-Ray 03/15/19 17:35 IMPRESSION: FRACTURES OF THE 1ST TOE AND DISTAL 2ND AND 3RD METATARSALS. MILD DIFFUSE SOFT TISSUE SWELLING. NO RADIOGRAPHIC FINDINGS OF OSTEOMYELITIS. Assessment & Plan - Diagnosis (1) Diabetic foot infection Is this a current diagnosis for this admission?: Yes - Time Time Spent with patient: 15-24 minutes - Inpatient Certification Medical Necessity: Need for IV Antibiotics - Plan Summary Plan Summary: Wound Vac replaced. Possible change in 3 days and decide on discharge with home visits to change wound vac q2-3 days. FOLLOW UP AT THE [facility]OUND [facility]ARE [facility] ON DISCHARGE Continue IV antibiotics until discharge
[2019-03-21] MEDS: MORPHINE SULFATE 10 MG/ML INJ IV PRN ×5 (03:16→20:31)
[2019-03-21] MEDS: HEPARIN SOD (PORCINE) 5,000 UNIT/ML 1 ML VIAL SUBCUT SCH ×3 (05:33→22:14)
[2019-03-21] MEDS: CEFEPIME 1 GM/D5W RTU 1 GM/50 ML RTUPB IV SCH ×2 (05:33→17:16)
[2019-03-21 06:57] LABS: ABSOLUTE BASOPHILS # (AUTO) 0.1 10^3/uL (0.0-0.2); ABSOLUTE EOSINOPHILS # (AUTO) 0.3 10^3/uL (0.0-0.6); ABSOLUTE MONOCYTES (AUTO) 1.2 10^3/uL (0.1-1.4); ABSOLUTE NEUT (AUTO) 6.7 10^3/uL (1.7-8.2); BASOPHILS % (AUTO) 0.8 % (0-2); EOSINOPHILS % (AUTO) 3.3 % (0-6); HEMATOCRIT 29.3 % (37.9-51.0); LYMPHOCYTES % (AUTO) 19.4 % (13-45); MEAN CORPUSCULAR HEMOGLOBIN 27.1 pg (27.0-33.4); MEAN CORPUSCULAR HGB CONC 34.1 g/dL (32.0-36.0); MEAN CORPUSCULAR VOLUME 79 fl (80-97); MONOCYTES % (AUTO) 11.6 % (3-13); PLATELET COUNT 636 10^3/uL (150-450); RED CELL DISTRIBUTION WIDTH 14.5 % (11.5-14.0); SEGMENTED NEUTROPHILS % (AUTO) 64.9 % (42-78); TOTAL CELLS COUNTED % (AUTO) 100 %; WHITE BLOOD COUNT 10.4 10^3/uL (4.0-10.5)
[2019-03-21] MEDS: INSULIN LISPRO 100 UNIT/ML 3 ML VIAL SUBCUT SCH ×5 (07:16→22:19)
[2019-03-21 07:24] LABS: ALANINE AMINOTRANSFERASE 18 U/L (21-72); ALBUMIN 2.8 g/dL (3.5-5.0); ALKALINE PHOSPHATASE 130 U/L (38-126); ANION GAP 7 (5-19); ASPARTATE AMINO TRANSFERASE 24 U/L (17-59); BILIRUBIN,DIRECT 0.2 mg/dL (0.0-0.4); BILIRUBIN,TOTAL 0.2 mg/dL (0.2-1.3); BLOOD UREA NITROGEN 10 mg/dL (7-20); CALCIUM 8.8 mg/dL (8.4-10.2); CARBON DIOXIDE 31 mmol/L (22-30); CHLORIDE 97 mmol/L (98-107); GLUCOSE 97 mg/dL (75-110); POTASSIUM 4.8 mmol/L (3.6-5.0); TOTAL PROTEIN 6.6 g/dL (6.3-8.2)
--- NOTE | 2019-03-21 09:42 | PDOC PROGRESS REPORT ---
Subjective Progress Note for:: 03/21/19 Subjective:: 49 year old male with a past medical history of former alcoholism with gastritis and upper GI bleed, peripheral vascular disease, peripheral neuropathy and poorly controlled insulin-dependent diabetes admitted for sepsis secondary to infected diabetic right foot ulcer. 03/17: Patient underwent ray amputation this morning. Upon encounter, she feels better. No fever chills. 03/18: He continues to do well. Pain is well controlled. Surgery is planning to proceed with wound VAC placement today. 03/19: No acute event overnight. He denies acute complaints. He continues to do well. He had wound VAC placement yesterday. Wound culture is growing gram- positive cocci and gram-negative rods. 03/20/2019-no acute events in the last 24 hrs. s/p rt great toe removal with wound vac cultures growing enterococcus ,enterobactor, staph on vanc and zosyn 03/21/2019-no acute events in the last 24 hours. Afebrile. WBC count is 10.4. No complaints from the patient. Dr. Hidalgo change the wound VAC today. He is going to change the wound VAC in 3 days in the meantime his recommendation is to continue the antibiotic therapy and physical therapy. Reason For Visit: SEPSIS,ACUTE RENAL FAILURE,HYPERKALEMIA,DIABETIC Physical Exam Vital Signs: Temp Pulse Resp BP Pulse Ox 98.3 F 78 16 148/84 H 97 03/21/19 07:43 03/21/19 07:43 03/21/19 07:43 03/21/19 07:43 03/21/19 07:43 Intake & Output 03/20/19 03/21/19 03/22/19 06:59 06:59 06:59 Intake Total 1885 2119 Output Total 2049 2249 Balance -164 -130 Weight 76.9 kg 77.8 kg 88.5 kg General appearance: PRESENT: no acute distress, cooperative Head exam: PRESENT: atraumatic Eye exam: PRESENT: PERRLA Mouth exam: PRESENT: moist, tongue midline Neck exam: ABSENT: carotid bruit, JVD, lymphadenopathy, thyromegaly Respiratory exam: PRESENT: clear to auscultation rian. ABSENT: rales, rhonchi, wheezes Cardiovascular exam: PRESENT: RRR. ABSENT: diastolic murmur, rubs, systolic murmur GI/Abdominal exam: PRESENT: normal bowel sounds, soft. ABSENT: distended, guarding, mass, organolmegaly, rebound, tenderness Rectal exam: PRESENT: deferred Extremities exam: PRESENT: full ROM, other - VAC is attached to the right foot.. ABSENT: calf tenderness, clubbing, pedal edema Neurological exam: PRESENT: alert, awake, oriented to person, oriented to place, oriented to time, oriented to situation, CN II-XII grossly intact. ABSENT: motor sensory deficit Psychiatric exam: PRESENT: appropriate affect, normal mood. ABSENT: homicidal ideation, suicidal ideation Results Laboratory Results: 03/21/19 06:01 03/21/19 06:01 03/21/19 03/21/19 06:01 06:01 WBC 10.4 RBC 3.70 L Hgb 10.0 L Hct 29.3 L MCV 79 L MCH 27.1 MCHC 34.1 RDW 14.5 H Plt Count 636 H Seg Neutrophils % 64.9 Lymphocytes % 19.4 Monocytes % 11.6 Eosinophils % 3.3 Basophils % 0.8 Absolute Neutrophils 6.7 Absolute Lymphocytes 2.0 Absolute Monocytes 1.2 Absolute Eosinophils 0.3 Absolute Basophils 0.1 Sodium 135.2 L Potassium 4.8 Chloride 97 L Carbon Dioxide 31 H Anion Gap 7 BUN 10 Creatinine 1.00 Est GFR ( Amer) > 60 Est GFR (Non-Af Amer) > 60 Glucose 97 Calcium 8.8 Magnesium 2.1 Total Bilirubin 0.2 AST 24 ALT 18 L Alkaline Phosphatase 130 H Total Protein 6.6 Albumin 2.8 L 03/15/19 20:29 Blood Blood Culture - Final NO GROWTH IN 5 DAYS 03/15/19 18:10 Blood Blood Culture - Final NO GROWTH IN 5 DAYS 03/17/19 08:57 Toe - Right Big Toe Gram Stain - Final 03/17/19 08:57 Toe - Right Big Toe Wound Culture - Final Staphylococcus Sciuri Enterococcus Faecalis(Group D) Enterobacter Cloacae Finegoldia Species Impressions: Foot X-Ray 03/15/19 17:35 IMPRESSION: FRACTURES OF THE 1ST TOE AND DISTAL 2ND AND 3RD METATARSALS. MILD DIFFUSE SOFT TISSUE SWELLING. NO RADIOGRAPHIC FINDINGS OF OSTEOMYELITIS. Assessment and Plan - Diagnosis (1) Gangrene of right foot Is this a current diagnosis for this admission?: Yes Plan: IV fluid challenge, vancomycin and cefepime for coverage of MRSA and Pseudomonas, follow-up surgical consult 03/20/2019- rt great toe gangrene s/p rt great toe amputation on wound vac. presently on vanc and zosyn 09/21/2018-patient admitted with right great toe gangrene status post amputation of the right great toe on wound VAC. Surgical team is following the patient on regular basis. Presently on vancomycin and Zosyn plan is to continue the present management. (2) Hyperglycemia due to type 2 diabetes mellitus Qualifiers: Diabetes mellitus manager intermediate insulin use: with care home use Qualified Code(s): E11.65 - Type 2 diabetes mellitus with hyperglycemia; Z79.4 - terminal worker (current) use of insulin Is this a current diagnosis for this admission?: No Plan: 03/20/2019- h/o type 2 dm .latest blood sugar is 73 plan is to continue lantus 40 and insulin sliding scale. 03/21/2019-patient has history of type 2 diabetes mellitus blood sugar this morning is 101 well-controlled presently on Lantus 40 units in the morning and insulin sliding scale plan is to continue the present management and to check hemoglobin A1c. The globin A1c came back 14. Dietary consult will be requested. (3) Hypertension Qualifiers: Hypertension type: essential hypertension Qualified Code(s): I10 - Essential (primary) hypertension Is this a current diagnosis for this admission?: Yes Plan: Continue amlodipine. 03/20/2019- latest bp is 136/85 to continue amlodepine. 09/21/2018-patient blood pressure today is 147/80 presently on amlodipine plan is to continue the present management. (4) Hyperkalemia Is this a current diagnosis for this admission?: Yes Plan: Without peak T waves, secondary to uncontrolled hyperglycemia. Follow-up chemistry 03/20/2019- latest potassium is 4.6 and hyperkalemia resolved. 03/21/2019-serum potassium is 4.8 hyperkalemia is resolved. - Time Time Spent with patient: 25-34 minutes Medications reviewed and adjusted accordingly: Yes Anticipated discharge: Home with Homehealth
[2019-03-21] MEDS: PANTOPRAZOLE SODIUM 40 MG VIAL IV SCH ×2 (10:11→22:14)
[2019-03-21] MEDS: INSULIN GLARGINE,HUM.REC.ANLOG 1,000 UNIT/10 ML VIAL SUBCUT SCH (10:11)
[2019-03-21] MEDS: VANCOMYCIN HCL 1,250 MG in DEXTROSE 5%-WATER 250 ML IV SCH ×2 (10:11→22:25)
[2019-03-21] MEDS: DULOXETINE HCL 30 MG CAPSULE.DR PO SCH ×2 (10:12→22:14)
[2019-03-21] MEDS: AMLODIPINE BESYLATE 5 MG TABLET PO SCH (10:12)
[2019-03-21] MEDS: DOCUSATE SODIUM 100 MG CAPSULE PO SCH ×2 (10:12→17:26)
[2019-03-21 10:50] LABS: VANCOMYCIN,TROUGH 16.1 ug/mL (5.0-20.0)
[2019-03-22] MEDS: MORPHINE SULFATE 10 MG/ML INJ IV PRN ×5 (00:44→21:16)
[2019-03-22 06:16] LABS: ABSOLUTE EOSINOPHILS # (AUTO) 0.4 10^3/uL (0.0-0.6); ABSOLUTE LYMPHOCYTES (AUTO) 1.9 10^3/uL (0.5-4.7); ABSOLUTE MONOCYTES (AUTO) 1.2 10^3/uL (0.1-1.4); ABSOLUTE NEUT (AUTO) 7.5 10^3/uL (1.7-8.2); BASOPHILS % (AUTO) 0.4 % (0-2); EOSINOPHILS % (AUTO) 3.3 % (0-6); HEMATOCRIT 30.8 % (37.9-51.0); HEMOGLOBIN 10.3 g/dL (13.5-17.0); LYMPHOCYTES % (AUTO) 17.2 % (13-45); MEAN CORPUSCULAR HEMOGLOBIN 26.7 pg (27.0-33.4); MEAN CORPUSCULAR HGB CONC 33.6 g/dL (32.0-36.0); MEAN CORPUSCULAR VOLUME 80 fl (80-97); PLATELET COUNT 581 10^3/uL (150-450); RED BLOOD COUNT 3.87 10^6/uL (4.35-5.55); RED CELL DISTRIBUTION WIDTH 14.5 % (11.5-14.0); SEGMENTED NEUTROPHILS % (AUTO) 68.1 % (42-78); TOTAL CELLS COUNTED % (AUTO) 100 %; WHITE BLOOD COUNT 10.9 10^3/uL (4.0-10.5)
[2019-03-22] MEDS: CEFEPIME 1 GM/D5W RTU 1 GM/50 ML RTUPB IV SCH ×2 (06:36→17:03)
[2019-03-22] MEDS: HEPARIN SOD (PORCINE) 5,000 UNIT/ML 1 ML VIAL SUBCUT SCH ×3 (06:36→21:18)
[2019-03-22 06:39] LABS: ALANINE AMINOTRANSFERASE 22 U/L (21-72); ALBUMIN 2.9 g/dL (3.5-5.0); ALKALINE PHOSPHATASE 131 U/L (38-126); ANION GAP 8 (5-19); ASPARTATE AMINO TRANSFERASE 20 U/L (17-59); BILIRUBIN,DIRECT 0.2 mg/dL (0.0-0.4); BILIRUBIN,TOTAL 0.2 mg/dL (0.2-1.3); BLOOD UREA NITROGEN 12 mg/dL (7-20); CALCIUM 8.9 mg/dL (8.4-10.2); CARBON DIOXIDE 30 mmol/L (22-30); CHLORIDE 97 mmol/L (98-107); GLUCOSE 142 mg/dL (75-110); POTASSIUM 5.1 mmol/L (3.6-5.0); TOTAL PROTEIN 6.6 g/dL (6.3-8.2)
[2019-03-22] MEDS: INSULIN LISPRO 100 UNIT/ML 3 ML VIAL SUBCUT SCH ×7 (08:27→21:19)
[2019-03-22] MEDS: VANCOMYCIN HCL 1,250 MG in DEXTROSE 5%-WATER 250 ML IV SCH ×2 (09:50→21:18)
[2019-03-22] MEDS: DOCUSATE SODIUM 100 MG CAPSULE PO SCH ×2 (09:51→17:03)
[2019-03-22] MEDS: INSULIN GLARGINE,HUM.REC.ANLOG 1,000 UNIT/10 ML VIAL SUBCUT SCH (09:51)
[2019-03-22] MEDS: DULOXETINE HCL 30 MG CAPSULE.DR PO SCH ×2 (09:51→21:19)
[2019-03-22] MEDS: AMLODIPINE BESYLATE 5 MG TABLET PO SCH (09:51)
--- NOTE | 2019-03-22 11:17 | PDOC PROGRESS REPORT ---
Subjective Progress Note for:: 03/22/19 Subjective:: 49 year old male with a past medical history of former alcoholism with gastritis and upper GI bleed, peripheral vascular disease, peripheral neuropathy and poorly controlled insulin-dependent diabetes admitted for sepsis secondary to infected diabetic right foot ulcer. 03/17: Patient underwent ray amputation this morning. Upon encounter, she feels better. No fever chills. 03/18: He continues to do well. Pain is well controlled. Surgery is planning to proceed with wound VAC placement today. 03/19: No acute event overnight. He denies acute complaints. He continues to do well. He had wound VAC placement yesterday. Wound culture is growing gram- positive cocci and gram-negative rods. 03/20/2019-no acute events in the last 24 hrs. s/p rt great toe removal with wound vac cultures growing enterococcus ,enterobactor, staph on vanc and zosyn 03/21/2019-no acute events in the last 24 hours. Afebrile. WBC count is 10.4. No complaints from the patient. Dr. Hidalgo change the wound VAC today. He is going to change the wound VAC in 3 days in the meantime his recommendation is to continue the antibiotic therapy and physical therapy. 03/22/2019-no acute events in the last 24 hours. Afebrile. WBC count is 10,900. No complaints from the patient. He is going to be here and to Tuesday for antibiotic therapy. plan is to discharge him home on wound VAC Reason For Visit: SEPSIS,ACUTE RENAL FAILURE,HYPERKALEMIA,DIABETIC Physical Exam Vital Signs: Temp Pulse Resp BP Pulse Ox 98.3 F 82 19 143/82 H 96 03/22/19 07:20 03/22/19 07:20 03/22/19 07:20 03/22/19 07:20 03/22/19 07:20 Intake & Output 03/21/19 03/22/19 03/23/19 06:59 06:59 06:59 Intake Total 2120 1591 Output Total 2250 1420 Balance -130 171 Weight 77.8 kg 88.6 kg General appearance: PRESENT: no acute distress Head exam: PRESENT: atraumatic Eye exam: PRESENT: PERRLA Mouth exam: PRESENT: moist, tongue midline Teeth exam: PRESENT: poor dentation Neck exam: ABSENT: carotid bruit, JVD, lymphadenopathy, thyromegaly Respiratory exam: PRESENT: clear to auscultation rian. ABSENT: rales, rhonchi, wheezes Cardiovascular exam: PRESENT: RRR. ABSENT: diastolic murmur, rubs, systolic murmur GI/Abdominal exam: PRESENT: normal bowel sounds, soft. ABSENT: distended, guarding, mass, organolmegaly, rebound, tenderness Rectal exam: PRESENT: deferred Extremities exam: PRESENT: other - Wound VAC is attached to the right foot. Neurological exam: PRESENT: alert, awake, oriented to person, oriented to place, oriented to time, oriented to situation, CN II-XII grossly intact. ABSENT: motor sensory deficit Results Laboratory Results: 03/22/19 05:43 03/22/19 05:43 03/22/19 03/22/19 05:43 05:43 WBC 10.9 H RBC 3.87 L Hgb 10.3 L Hct 30.8 L MCV 80 MCH 26.7 L MCHC 33.6 RDW 14.5 H Plt Count 581 H Seg Neutrophils % 68.1 Lymphocytes % 17.2 Monocytes % 11.0 Eosinophils % 3.3 Basophils % 0.4 Absolute Neutrophils 7.5 Absolute Lymphocytes 1.9 Absolute Monocytes 1.2 Absolute Eosinophils 0.4 Absolute Basophils 0.0 Sodium 134.9 L Potassium 5.1 H Chloride 97 L Carbon Dioxide 30 Anion Gap 8 BUN 12 Creatinine 1.18 Est GFR ( Amer) > 60 Est GFR (Non-Af Amer) > 60 Glucose 142 H Calcium 8.9 Magnesium 2.0 Total Bilirubin 0.2 AST 20 ALT 22 Alkaline Phosphatase 131 H Total Protein 6.6 Albumin 2.9 L Impressions: Foot X-Ray 03/15/19 17:35 IMPRESSION: FRACTURES OF THE 1ST TOE AND DISTAL 2ND AND 3RD METATARSALS. MILD DIFFUSE SOFT TISSUE SWELLING. NO RADIOGRAPHIC FINDINGS OF OSTEOMYELITIS. Assessment and Plan - Diagnosis (1) Gangrene of right foot Is this a current diagnosis for this admission?: Yes Plan: IV fluid challenge, vancomycin and cefepime for coverage of MRSA and Pseudomonas, follow-up surgical consult 03/20/2019- rt great toe gangrene s/p rt great toe amputation on wound vac. presently on vanc and zosyn 03/21/2019-patient admitted with right great toe gangrene status post amputation of the right great toe on wound VAC. Surgical team is following the patient on regular basis. Presently on vancomycin and Zosyn plan is to continue the present management. 03/22/2019-patient is admitted with a right great foot gangrene status post amputation and wound VAC placement. Plan is to keep him here another 48 to 72 hours on cart to continue antibiotic therapy then he will go home with wound VAC and follow-up with the wound care center. (2) Hyperglycemia due to type 2 diabetes mellitus Qualifiers: Diabetes mellitus fdc insulin use: with lobsterman use Qualified Code(s): E11.65 - Type 2 diabetes mellitus with hyperglycemia; Z79.4 - exterminator termite (current) use of insulin Is this a current diagnosis for this admission?: No Plan: 03/20/2019- h/o type 2 dm .latest blood sugar is 73 plan is to continue lantus 40 and insulin sliding scale. 03/21/2019-patient has history of type 2 diabetes mellitus blood sugar this morning is 101 well-controlled presently on Lantus 40 units in the morning and insulin sliding scale plan is to continue the present management and to check hemoglobin A1c. The globin A1c came back 14. Dietary consult will be requested. 03/22/2019-patient blood sugar today is 133 well-controlled ,hemoglobin A1c is more than 14 again today dietary advice was given complex with medications also advised. (3) Hypertension Qualifiers: Hypertension type: essential hypertension Qualified Code(s): I10 - Essential (primary) hypertension Is this a current diagnosis for this admission?: Yes Plan: Continue amlodipine. 03/20/2019- latest bp is 136/85 to continue amlodepine. 09/21/2018-patient blood pressure today is 147/80 presently on amlodipine plan is to continue the present management. 03/22/2019-patient blood pressure today is 148/90. Presently on amlodipine plan is to continue the present management. (4) Hyperkalemia Is this a current diagnosis for this admission?: Yes Plan: Without peak T waves, secondary to uncontrolled hyperglycemia. Follow-up chemistry 03/20/2019- latest potassium is 4.6 and hyperkalemia resolved. 03/21/2019-serum potassium is 4.8 hyperkalemia is resolved. 03/22/2019-patient serum potassium is 5.1 high normal plan is to closely monitor the potassium levels on daily basis. - Time Time Spent with patient: 25-34 minutes Medications reviewed and adjusted accordingly: Yes Anticipated discharge: Home with Homehealth
[2019-03-22] MEDS ORDERED: ONDANSETRON HCL INJ/PF 4 MG/2 ML SDV IV PRN (11:30)
[2019-03-22] MEDS: MAG HYDROX/AL HYDROX/SIMETH SUSP 30 ML UDCUP PO PRN (16:13)
[2019-03-23] MEDS: MORPHINE SULFATE 10 MG/ML INJ IV PRN ×5 (04:26→23:02)
[2019-03-23 06:04] LABS: ABSOLUTE BASOPHILS # (AUTO) 0.2 10^3/uL (0.0-0.2); ABSOLUTE EOSINOPHILS # (AUTO) 0.4 10^3/uL (0.0-0.6); ABSOLUTE MONOCYTES (AUTO) 1.2 10^3/uL (0.1-1.4); ABSOLUTE NEUT (AUTO) 7.4 10^3/uL (1.7-8.2); BASOPHILS % (AUTO) 1.4 % (0-2); EOSINOPHILS % (AUTO) 3.4 % (0-6); HEMATOCRIT 30.7 % (37.9-51.0); HEMOGLOBIN 10.2 g/dL (13.5-17.0); LYMPHOCYTES % (AUTO) 18.3 % (13-45); MEAN CORPUSCULAR HEMOGLOBIN 26.6 pg (27.0-33.4); MEAN CORPUSCULAR HGB CONC 33.3 g/dL (32.0-36.0); MEAN CORPUSCULAR VOLUME 80 fl (80-97); MONOCYTES % (AUTO) 10.4 % (3-13); PLATELET COUNT 590 10^3/uL (150-450); RED BLOOD COUNT 3.85 10^6/uL (4.35-5.55); RED CELL DISTRIBUTION WIDTH 14.5 % (11.5-14.0); SEGMENTED NEUTROPHILS % (AUTO) 66.5 % (42-78); TOTAL CELLS COUNTED % (AUTO) 100 %; WHITE BLOOD COUNT 11.2 10^3/uL (4.0-10.5)
[2019-03-23 06:20] LABS: ALANINE AMINOTRANSFERASE 21 U/L (21-72); ALKALINE PHOSPHATASE 140 U/L (38-126); ANION GAP 9 (5-19); ASPARTATE AMINO TRANSFERASE 22 U/L (17-59); BILIRUBIN,DIRECT 0.2 mg/dL (0.0-0.4); BILIRUBIN,TOTAL 0.2 mg/dL (0.2-1.3); BLOOD UREA NITROGEN 15 mg/dL (7-20); CARBON DIOXIDE 29 mmol/L (22-30); CHLORIDE 96 mmol/L (98-107); GLUCOSE 157 mg/dL (75-110); POTASSIUM 5.2 mmol/L (3.6-5.0)
[2019-03-23] MEDS: HEPARIN SOD (PORCINE) 5,000 UNIT/ML 1 ML VIAL SUBCUT SCH ×3 (06:33→22:29)
[2019-03-23] MEDS ORDERED: PATIROMER 8.4 GM SUSP PACKET PO ONE (09:00)
[2019-03-23] MEDS: INSULIN LISPRO 100 UNIT/ML 3 ML VIAL SUBCUT SCH ×7 (09:01→22:29)
--- NOTE | 2019-03-23 10:25 | PDOC PROGRESS REPORT ---
Subjective Progress Note for:: 03/23/19 Subjective:: 49 year old male with a past medical history of former alcoholism with gastritis and upper GI bleed, peripheral vascular disease, peripheral neuropathy and poorly controlled insulin-dependent diabetes admitted for sepsis secondary to infected diabetic right foot ulcer. 03/17: Patient underwent ray amputation this morning. Upon encounter, she feels better. No fever chills. 03/18: He continues to do well. Pain is well controlled. Surgery is planning to proceed with wound VAC placement today. 03/19: No acute event overnight. He denies acute complaints. He continues to do well. He had wound VAC placement yesterday. Wound culture is growing gram- positive cocci and gram-negative rods. 03/20/2019-no acute events in the last 24 hrs. s/p rt great toe removal with wound vac cultures growing enterococcus ,enterobactor, staph on vanc and zosyn 03/21/2019-no acute events in the last 24 hours. Afebrile. WBC count is 10.4. No complaints from the patient. Dr. Hidalgo change the wound VAC today. He is going to change the wound VAC in 3 days in the meantime his recommendation is to continue the antibiotic therapy and physical therapy. 03/22/2019-no acute events in the last 24 hours. Afebrile. WBC count is 10,900. No complaints from the patient. He is going to be here and to Tuesday for antibiotic therapy. plan is to discharge him home on wound VAC 03/23/2019-no acute events in the last 24 hours. Afebrile. BC count is 11,200 today. Cultures came back positive for enterococcus, Enterobacter. On vancomycin and Zosyn. Apparently the antibiotics fell off from the [facility]. To restart the medications. Reason For Visit: SEPSIS,ACUTE RENAL FAILURE,HYPERKALEMIA,DIABETIC Physical Exam Vital Signs: Temp Pulse Resp BP Pulse Ox 98.3 F 83 14 132/74 H 95 03/23/19 07:23 03/23/19 07:23 03/23/19 07:23 03/23/19 07:23 03/23/19 07:23 Intake & Output 03/22/19 03/23/19 03/24/19 06:59 06:59 06:59 Intake Total 1591 2550 Output Total 1420 2550 Balance 171 0 Weight 88.6 kg 88.5 kg General appearance: PRESENT: no acute distress Head exam: PRESENT: atraumatic Eye exam: PRESENT: PERRLA Mouth exam: PRESENT: moist, tongue midline Teeth exam: PRESENT: poor dentation Neck exam: ABSENT: carotid bruit, JVD, lymphadenopathy, thyromegaly Respiratory exam: PRESENT: clear to auscultation rian. ABSENT: rales, rhonchi, wheezes Cardiovascular exam: PRESENT: RRR. ABSENT: diastolic murmur, rubs, systolic murmur GI/Abdominal exam: PRESENT: normal bowel sounds, soft. ABSENT: distended, guarding, mass, organolmegaly, rebound, tenderness Rectal exam: PRESENT: deferred Extremities exam: PRESENT: full ROM, other - Wound VAC is attached to the right foot.. ABSENT: calf tenderness, clubbing, pedal edema Neurological exam: PRESENT: alert, awake, oriented to person, oriented to place, oriented to time, oriented to situation, CN II-XII grossly intact. ABSENT: motor sensory deficit Psychiatric exam: PRESENT: appropriate affect, normal mood. ABSENT: homicidal ideation, suicidal ideation Results Laboratory Results: 03/23/19 05:12 03/23/19 05:12 03/23/19 03/23/19 05:12 05:12 WBC 11.2 H RBC 3.85 L Hgb 10.2 L Hct 30.7 L MCV 80 MCH 26.6 L MCHC 33.3 RDW 14.5 H Plt Count 590 H Seg Neutrophils % 66.5 Lymphocytes % 18.3 Monocytes % 10.4 Eosinophils % 3.4 Basophils % 1.4 Absolute Neutrophils 7.4 Absolute Lymphocytes 2.0 Absolute Monocytes 1.2 Absolute Eosinophils 0.4 Absolute Basophils 0.2 Sodium 134.2 L Potassium 5.2 H Chloride 96 L Carbon Dioxide 29 Anion Gap 9 BUN 15 Creatinine 1.02 Est GFR ( Amer) > 60 Est GFR (Non-Af Amer) > 60 Glucose 157 H Calcium 9.0 Magnesium 2.1 Total Bilirubin 0.2 AST 22 ALT 21 Alkaline Phosphatase 140 H Total Protein 7.0 Albumin 3.0 L Impressions: Foot X-Ray 03/15/19 17:35 IMPRESSION: FRACTURES OF THE 1ST TOE AND DISTAL 2ND AND 3RD METATARSALS. MILD DIFFUSE SOFT TISSUE SWELLING. NO RADIOGRAPHIC FINDINGS OF OSTEOMYELITIS. Assessment and Plan - Diagnosis (1) Gangrene of right foot Is this a current diagnosis for this admission?: Yes Plan: IV fluid challenge, vancomycin and cefepime for coverage of MRSA and Pseudomonas, follow-up surgical consult 03/20/2019- rt great toe gangrene s/p rt great toe amputation on wound vac. presently on vanc and zosyn 03/21/2019-patient admitted with right great toe gangrene status post amputation of the right great toe on wound VAC. Surgical team is following the patient on regular basis. Presently on vancomycin and Zosyn plan is to continue the pre sent management. 03/22/2019-patient is admitted with a right great foot gangrene status post amputation and wound VAC placement. Plan is to keep him here another 48 to 72 hours on cart to continue antibiotic therapy then he will go home with wound VAC and follow-up with the wound care center. 03/23/2019-patient admitted with right great toe gangrene status post amputation of the right great toe with wound VAC placement. Wound cultures were positive for Enterobacter and enterococcus. To start the antibiotics today apparently antibiotics fell off the [facility]. To restart on Zosyn and vancomycin. (2) Hyperglycemia due to type 2 diabetes mellitus Qualifiers: Diabetes mellitus terminologist insulin use: with terminologist use Qualified Code(s): E11.65 - Type 2 diabetes mellitus with hyperglycemia; Z79.4 - longterm (current) use of insulin Is this a current diagnosis for this admission?: No Plan: 03/20/2019- h/o type 2 dm .latest blood sugar is 73 plan is to continue lantus 40 and insulin sliding scale. 03/21/2019-patient has history of type 2 diabetes mellitus blood sugar this morning is 101 well-controlled presently on Lantus 40 units in the morning and insulin sliding scale plan is to continue the present management and to check hemoglobin A1c. The globin A1c came back 14. Dietary consult will be requested. 03/22/2019-patient blood sugar today is 133 well-controlled ,hemoglobin A1c is more than 14 again today dietary advice was given complex with medications also advised. 03/23/2019-patient's latest blood sugar is 142 stable. Hemoglobin A1c is 14. Dietary consult was provided during the hospital stay. (3) Hypertension Qualifiers: Hypertension type: essential hypertension Qualified Code(s): I10 - Essential (primary) hypertension Is this a current diagnosis for this admission?: Yes Plan: Continue amlodipine. 03/20/2019- latest bp is 136/85 to continue amlodepine. 09/21/2018-patient blood pressure today is 147/80 presently on amlodipine plan is to continue the present management. 03/22/2019-patient blood pressure today is 148/90. Presently on amlodipine plan is to continue the present management. 03/23/2019-patient blood pressure today is 135/85 stable. Plan is to continue amlodipine at this time. (4) Hyperkalemia Is this a current diagnosis for this admission?: Yes Plan: Without peak T waves, secondary to uncontrolled hyperglycemia. Follow-up chemistry 03/20/2019- latest potassium is 4.6 and hyperkalemia resolved. 03/21/2019-serum potassium is 4.8 hyperkalemia is resolved. 03/22/2019-patient serum potassium is 5.1 high normal plan is to closely monitor the potassium levels on daily basis. 03/23/2019-patient serum potassium is elevated 5.2 to Veltassa 1 dose today. - Time Time Spent with patient: 25-34 minutes Medications reviewed and adjusted accordingly: Yes Anticipated discharge: Home with Homehealth
[2019-03-23] MEDS: INSULIN GLARGINE,HUM.REC.ANLOG 1,000 UNIT/10 ML VIAL SUBCUT SCH (11:37)
[2019-03-23] MEDS ORDERED: PIPERACILLIN/TAZOBACTAM 3.375 GM VIAL IV SCH (12:00)
[2019-03-23] MEDS: DULOXETINE HCL 30 MG CAPSULE.DR PO SCH ×2 (12:02→22:30)
[2019-03-23] MEDS: DOCUSATE SODIUM 100 MG CAPSULE PO SCH ×2 (12:03→18:22)
[2019-03-23] MEDS: AMLODIPINE BESYLATE 5 MG TABLET PO SCH (12:03)
[2019-03-23] MEDS: VANCOMYCIN HCL 1,250 MG in DEXTROSE 5%-WATER 250 ML IV SCH ×2 (12:06→22:29)
[2019-03-23] MEDS: PIPERACILLIN SODIUM/TAZOBACTAM 3.375 GM in NORMAL SALINE 100 ML IV SCH ×3 (14:22→23:03)
[2019-03-23] MEDS: MAG HYDROX/AL HYDROX/SIMETH SUSP 30 ML UDCUP PO PRN (14:48)
[2019-03-23] MEDS ORDERED: VANCOMYCIN HCL INJ 1000 MG VIAL IV SCH (18:00)
[2019-03-24 05:00] LABS: ABSOLUTE BASOPHILS # (AUTO) 0.1 10^3/uL (0.0-0.2); ABSOLUTE EOSINOPHILS # (AUTO) 0.3 10^3/uL (0.0-0.6); ABSOLUTE LYMPHOCYTES (AUTO) 2.1 10^3/uL (0.5-4.7); ABSOLUTE MONOCYTES (AUTO) 1.3 10^3/uL (0.1-1.4); ABSOLUTE NEUT (AUTO) 7.9 10^3/uL (1.7-8.2); BASOPHILS % (AUTO) 0.8 % (0-2); EOSINOPHILS % (AUTO) 2.3 % (0-6); HEMATOCRIT 30.6 % (37.9-51.0); HEMOGLOBIN 10.1 g/dL (13.5-17.0); LYMPHOCYTES % (AUTO) 18.2 % (13-45); MEAN CORPUSCULAR HEMOGLOBIN 26.4 pg (27.0-33.4); MEAN CORPUSCULAR HGB CONC 33.1 g/dL (32.0-36.0); MEAN CORPUSCULAR VOLUME 80 fl (80-97); MONOCYTES % (AUTO) 10.9 % (3-13); PLATELET COUNT 579 10^3/uL (150-450); RED BLOOD COUNT 3.83 10^6/uL (4.35-5.55); RED CELL DISTRIBUTION WIDTH 14.7 % (11.5-14.0); SEGMENTED NEUTROPHILS % (AUTO) 67.8 % (42-78); TOTAL CELLS COUNTED % (AUTO) 100 %; WHITE BLOOD COUNT 11.6 10^3/uL (4.0-10.5)
[2019-03-24 05:20] LABS: ALANINE AMINOTRANSFERASE 17 U/L (21-72); ALBUMIN 3.1 g/dL (3.5-5.0); ALKALINE PHOSPHATASE 139 U/L (38-126); ANION GAP 9 (5-19); ASPARTATE AMINO TRANSFERASE 22 U/L (17-59); BILIRUBIN,DIRECT 0.2 mg/dL (0.0-0.4); BILIRUBIN,TOTAL 0.2 mg/dL (0.2-1.3); BLOOD UREA NITROGEN 15 mg/dL (7-20); CALCIUM 9.2 mg/dL (8.4-10.2); CARBON DIOXIDE 29 mmol/L (22-30); CHLORIDE 98 mmol/L (98-107); GLUCOSE 122 mg/dL (75-110); POTASSIUM 5.1 mmol/L (3.6-5.0)
[2019-03-24] MEDS: PIPERACILLIN SODIUM/TAZOBACTAM 3.375 GM in NORMAL SALINE 100 ML IV SCH ×3 (06:28→17:03)
[2019-03-24] MEDS: HEPARIN SOD (PORCINE) 5,000 UNIT/ML 1 ML VIAL SUBCUT SCH ×3 (06:28→21:08)
[2019-03-24] MEDS: MORPHINE SULFATE 10 MG/ML INJ IV PRN ×4 (06:29→20:17)
[2019-03-24] MEDS: INSULIN LISPRO 100 UNIT/ML 3 ML VIAL SUBCUT SCH ×6 (07:25→21:08)
[2019-03-24] MEDS: DULOXETINE HCL 30 MG CAPSULE.DR PO SCH ×2 (10:06→21:09)
[2019-03-24] MEDS: AMLODIPINE BESYLATE 5 MG TABLET PO SCH (10:06)
[2019-03-24] MEDS: VANCOMYCIN HCL 1,250 MG in DEXTROSE 5%-WATER 250 ML IV SCH (10:07)
[2019-03-24] MEDS: DOCUSATE SODIUM 100 MG CAPSULE PO SCH ×2 (10:07→17:03)
[2019-03-24 10:21] LABS: VANCOMYCIN,TROUGH 20.3 ug/mL (5.0-20.0)
--- NOTE | 2019-03-24 12:04 | PDOC PROGRESS REPORT ---
Subjective Progress Note for:: 03/24/19 Subjective:: 49 year old male with a past medical history of former alcoholism with gastritis and upper GI bleed, peripheral vascular disease, peripheral neuropathy and poorly controlled insulin-dependent diabetes admitted for sepsis secondary to infected diabetic right foot ulcer. 03/17: Patient underwent ray amputation this morning. Upon encounter, she feels better. No fever chills. 03/18: He continues to do well. Pain is well controlled. Surgery is planning to proceed with wound VAC placement today. 03/19: No acute event overnight. He denies acute complaints. He continues to do well. He had wound VAC placement yesterday. Wound culture is growing gram- positive cocci and gram-negative rods. 03/20/2019-no acute events in the last 24 hrs. s/p rt great toe removal with wound vac cultures growing enterococcus ,enterobactor, staph on vanc and zosyn 03/21/2019-no acute events in the last 24 hours. Afebrile. WBC count is 10.4. No complaints from the patient. Dr. Hidalgo change the wound VAC today. He is going to change the wound VAC in 3 days in the meantime his recommendation is to continue the antibiotic therapy and physical therapy. 03/22/2019-no acute events in the last 24 hours. Afebrile. WBC count is 10,900. No complaints from the patient. He is going to be here and to Tuesday for antibiotic therapy. plan is to discharge him home on wound VAC 03/23/2019-no acute events in the last 24 hours. Afebrile. BC count is 11,200 today. Cultures came back positive for enterococcus, Enterobacter. On vancomycin and Zosyn. Apparently the antibiotics fell off from the [facility]. To restart the medications. 03/24/2019-no acute events in the last 24 hours. Afebrile. Patient's WBC count is 11,600. Presently on vancomycin and Zosyn. Patient is comfortable in the bed communicating well. Reason For Visit: SEPSIS,ACUTE RENAL FAILURE,HYPERKALEMIA,DIABETIC Physical Exam Vital Signs: Temp Pulse Resp BP Pulse Ox 98.6 F 81 16 136/81 H 99 03/24/19 07:10 03/24/19 07:10 03/24/19 07:10 03/24/19 07:10 03/24/19 07:10 Intake & Output 03/23/19 03/24/19 03/25/19 06:59 06:59 06:59 Intake Total 2550 1131 Output Total 2550 1300 Balance 0 -169 Weight 88.5 kg 88.5 kg General appearance: PRESENT: no acute distress Head exam: PRESENT: atraumatic Eye exam: PRESENT: PERRLA Mouth exam: PRESENT: moist, tongue midline Teeth exam: PRESENT: poor dentation Neck exam: ABSENT: carotid bruit, JVD, lymphadenopathy, thyromegaly Respiratory exam: PRESENT: clear to auscultation rian. ABSENT: rales, rhonchi, wheezes Cardiovascular exam: PRESENT: RRR. ABSENT: diastolic murmur, rubs, systolic murmur GI/Abdominal exam: PRESENT: ascites Rectal exam: PRESENT: deferred Extremities exam: PRESENT: full ROM, other. ABSENT: calf tenderness, clubbing, pedal edema Neurological exam: PRESENT: alert, awake, oriented to person, oriented to place, oriented to time, oriented to situation, CN II-XII grossly intact. ABSENT: motor sensory deficit Psychiatric exam: PRESENT: appropriate affect, normal mood. ABSENT: homicidal ideation, suicidal ideation Results Laboratory Results: 03/24/19 04:24 03/24/19 04:24 03/24/19 03/24/19 04:24 04:24 WBC 11.6 H RBC 3.83 L Hgb 10.1 L Hct 30.6 L MCV 80 MCH 26.4 L MCHC 33.1 RDW 14.7 H Plt Count 579 H Seg Neutrophils % 67.8 Lymphocytes % 18.2 Monocytes % 10.9 Eosinophils % 2.3 Basophils % 0.8 Absolute Neutrophils 7.9 Absolute Lymphocytes 2.1 Absolute Monocytes 1.3 Absolute Eosinophils 0.3 Absolute Basophils 0.1 Sodium 135.5 L Potassium 5.1 H Chloride 98 Carbon Dioxide 29 Anion Gap 9 BUN 15 Creatinine 1.23 Est GFR ( Amer) > 60 Est GFR (Non-Af Amer) > 60 Glucose 122 H Calcium 9.2 Magnesium 2.1 Total Bilirubin 0.2 AST 22 ALT 17 L Alkaline Phosphatase 139 H Total Protein 7.0 Albumin 3.1 L Impressions: Foot X-Ray 03/15/19 17:35 IMPRESSION: FRACTURES OF THE 1ST TOE AND DISTAL 2ND AND 3RD METATARSALS. MILD DIFFUSE SOFT TISSUE SWELLING. NO RADIOGRAPHIC FINDINGS OF OSTEOMYELITIS. Assessment and Plan - Diagnosis (1) Gangrene of right foot Is this a current diagnosis for this admission?: Yes Plan: IV fluid challenge, vancomycin and cefepime for coverage of MRSA and Pseudomonas, follow-up surgical consult 03/20/2019- rt great toe gangrene s/p rt great toe amputation on wound vac. presently on vanc and zosyn 03/21/2019-patient admitted with right great toe gangrene status post amputation of the right great toe on wound VAC. Surgical team is following the patient on regular basis. Presently on vancomycin and Zosyn plan is to continue the present management. 03/22/2019-patient is admitted with a right great foot gangrene status post amputation and wound VAC placement. Plan is to keep him here another 48 to 72 hours on cart to continue antibiotic therapy then he will go home with wound VAC and follow-up with the wound care center. 03/23/2019-patient admitted with right great toe gangrene status post amputation of the right great toe with wound VAC placement. Wound cultures were positive for Enterobacter and enterococcus. To start the antibiotics today apparently antibiotics fell off the [facility]. To restart on Zosyn and vancomycin. [id number] male diabetic patient admitted with right great toe gangrene status post amputation has a wound VAC. Recently on IV vancomycin and Zosyn. Cultures are positive for Enterobacter and enterococcus. Plan is to continue the present management. (2) Hyperglycemia due to type 2 diabetes mellitus Qualifiers: Diabetes mellitus shelter insulin use: with long term acute care registered nurse use Qualified Code(s): E11.65 - Type 2 diabetes mellitus with hyperglycemia; Z79.4 - [facility] (current) use of insulin Is this a current diagnosis for this admission?: No Plan: 03/20/2019- h/o type 2 dm .latest blood sugar is 73 plan is to continue lantus 40 and insulin sliding scale. 03/21/2019-patient has history of type 2 diabetes mellitus blood sugar this morning is 101 well-controlled presently on Lantus 40 units in the morning and insulin sliding scale plan is to continue the present management and to check hemoglobin A1c. The globin A1c came back 14. Dietary consult will be requested. 03/22/2019-patient blood sugar today is 133 well-controlled ,hemoglobin A1c is more than 14 again today dietary advice was given complex with medications also advised. 03/23/2019-patient's latest blood sugar is 142 stable. Hemoglobin A1c is 14. Dietary consult was provided during the hospital stay. 03/24/2019-patient blood sugar today is 131. Plan is to continue the insulin sliding scale and dietary consult was done. (3) Hypertension Qualifiers: Hypertension type: essential hypertension Qualified Code(s): I10 - Essential (primary) hypertension Is this a current diagnosis for this admission?: Yes Plan: Continue amlodipine. 03/20/2019- latest bp is 136/85 to continue amlodepine. 09/21/2018-patient blood pressure today is 147/80 presently on amlodipine plan is to continue the present management. 03/22/2019-patient blood pressure today is 148/90. Presently on amlodipine plan is to continue the present management. 03/23/2019-patient blood pressure today is 135/85 stable. Plan is to continue amlodipine at this time. 03/24/2019-patient blood pressure today is 163/83. Plan is to add lisinopril to the present medication. (4) Hyperkalemia Is this a current diagnosis for this admission?: Yes Plan: Without peak T waves, secondary to uncontrolled hyperglycemia. Follow-up chemistry 03/20/2019- latest potassium is 4.6 and hyperkalemia resolved. 03/21/2019-serum potassium is 4.8 hyperkalemia is resolved. 03/22/2019-patient serum potassium is 5.1 high normal plan is to closely monitor the potassium levels on daily basis. 03/23/2019-patient serum potassium is elevated 5.2 to Veltassa 1 dose today. 03/24/2019-serum potassium today is 5.1. given veltassa yesterday. Plan is to closely monitor the potassium levels on regular basis low potassium diet was recommended. - Time Time Spent with patient: 15-24 minutes Medications reviewed and adjusted accordingly: Yes Anticipated discharge: Home
[2019-03-24] MEDS: INSULIN GLARGINE,HUM.REC.ANLOG 1,000 UNIT/10 ML VIAL SUBCUT SCH (12:42)
[2019-03-24] MEDS ORDERED: AMLODIPINE BESYLATE 5 MG TABLET PO ONE (13:30)
[2019-03-24] MEDS ORDERED: VANCOMYCIN HCL 1,000 MG in DEXTROSE 5%-WATER 250 ML IV SCH (22:00)
[2019-03-25] MEDS: MORPHINE SULFATE 10 MG/ML INJ IV PRN ×6 (00:09→22:03)
[2019-03-25] MEDS: PIPERACILLIN SODIUM/TAZOBACTAM 3.375 GM in NORMAL SALINE 100 ML IV SCH ×5 (00:10→23:20)
[2019-03-25 05:18] LABS: ABSOLUTE EOSINOPHILS # (AUTO) 0.3 10^3/uL (0.0-0.6); ABSOLUTE LYMPHOCYTES (AUTO) 2.7 10^3/uL (0.5-4.7); ABSOLUTE MONOCYTES (AUTO) 1.2 10^3/uL (0.1-1.4); ABSOLUTE NEUT (AUTO) 7.6 10^3/uL (1.7-8.2); BASOPHILS % (AUTO) 0.4 % (0-2); EOSINOPHILS % (AUTO) 2.3 % (0-6); HEMATOCRIT 30.3 % (37.9-51.0); HEMOGLOBIN 10.1 g/dL (13.5-17.0); LYMPHOCYTES % (AUTO) 22.5 % (13-45); MEAN CORPUSCULAR HEMOGLOBIN 26.8 pg (27.0-33.4); MEAN CORPUSCULAR HGB CONC 33.4 g/dL (32.0-36.0); MEAN CORPUSCULAR VOLUME 80 fl (80-97); MONOCYTES % (AUTO) 10.3 % (3-13); PLATELET COUNT 567 10^3/uL (150-450); RED BLOOD COUNT 3.79 10^6/uL (4.35-5.55); RED CELL DISTRIBUTION WIDTH 14.7 % (11.5-14.0); SEGMENTED NEUTROPHILS % (AUTO) 64.5 % (42-78); TOTAL CELLS COUNTED % (AUTO) 100 %; WHITE BLOOD COUNT 11.8 10^3/uL (4.0-10.5)
[2019-03-25] MEDS: VANCOMYCIN HCL 750 MG in DEXTROSE 5%-WATER 250 ML IV SCH ×2 (05:34→18:56)
[2019-03-25] MEDS: HEPARIN SOD (PORCINE) 5,000 UNIT/ML 1 ML VIAL SUBCUT SCH ×3 (05:34→22:06)
[2019-03-25 05:48] LABS: ALANINE AMINOTRANSFERASE 19 U/L (21-72); ALKALINE PHOSPHATASE 134 U/L (38-126); ANION GAP 8 (5-19); ASPARTATE AMINO TRANSFERASE 18 U/L (17-59); BILIRUBIN,DIRECT 0.2 mg/dL (0.0-0.4); BILIRUBIN,TOTAL 0.2 mg/dL (0.2-1.3); BLOOD UREA NITROGEN 19 mg/dL (7-20); CALCIUM 8.9 mg/dL (8.4-10.2); CARBON DIOXIDE 28 mmol/L (22-30); CHLORIDE 99 mmol/L (98-107); GLUCOSE 203 mg/dL (75-110); TOTAL PROTEIN 6.8 g/dL (6.3-8.2)
[2019-03-25 05:56] LABS: POTASSIUM 5.7 mmol/L (3.6-5.0)
[2019-03-25] MEDS: INSULIN LISPRO 100 UNIT/ML 3 ML VIAL SUBCUT SCH ×4 (07:54→22:06)
[2019-03-25] MEDS: AMLODIPINE BESYLATE 10 MG TABLET PO SCH (09:34)
[2019-03-25] MEDS: DULOXETINE HCL 30 MG CAPSULE.DR PO SCH ×2 (09:35→22:04)
[2019-03-25] MEDS: DOCUSATE SODIUM 100 MG CAPSULE PO SCH ×2 (09:35→17:06)
[2019-03-25] MEDS ORDERED: LISINOPRIL 10 MG TABLET PO SCH (10:00)
--- NOTE | 2019-03-25 11:03 | PDOC PROGRESS REPORT ---
Subjective Progress Note for:: 03/25/19 Subjective:: 49 year old male with a past medical history of former alcoholism with gastritis and upper GI bleed, peripheral vascular disease, peripheral neuropathy and poorly controlled insulin-dependent diabetes admitted for sepsis secondary to infected diabetic right foot ulcer. 03/17: Patient underwent ray amputation this morning. Upon encounter, she feels better. No fever chills. 03/18: He continues to do well. Pain is well controlled. Surgery is planning to proceed with wound VAC placement today. 03/19: No acute event overnight. He denies acute complaints. He continues to do well. He had wound VAC placement yesterday. Wound culture is growing gram- positive cocci and gram-negative rods. 03/20/2019-no acute events in the last 24 hrs. s/p rt great toe removal with wound vac cultures growing enterococcus ,enterobactor, staph on vanc and zosyn 03/21/2019-no acute events in the last 24 hours. Afebrile. WBC count is 10.4. No complaints from the patient. Dr. Hidalgo change the wound VAC today. He is going to change the wound VAC in 3 days in the meantime his recommendation is to continue the antibiotic therapy and physical therapy. 03/22/2019-no acute events in the last 24 hours. Afebrile. WBC count is 10,900. No complaints from the patient. He is going to be here and to Tuesday for antibiotic therapy. plan is to discharge him home on wound VAC 03/23/2019-no acute events in the last 24 hours. Afebrile. BC count is 11,200 today. Cultures came back positive for enterococcus, Enterobacter. On vancomycin and Zosyn. Apparently the antibiotics fell off from the [facility]. To restart the medications. 03/24/2019-no acute events in the last 24 hours. Afebrile. Patient's WBC count is 11,600. Presently on vancomycin and Zosyn. Patient is comfortable in the bed communicating well. 03/25/2019-no acute events in the last 24 hours. Afebrile. WBC count is 11,800. Patient came in with right great toe gangrene status post amputation and wound VAC. Waiting for wound VAC November from [place]. Reason For Visit: SEPSIS,ACUTE RENAL FAILURE,HYPERKALEMIA,DIABETIC Physical Exam Vital Signs: Temp Pulse Resp BP Pulse Ox 98.7 F 78 14 124/69 98 03/25/19 07:16 03/25/19 07:16 03/25/19 07:16 03/25/19 07:16 03/25/19 07:16 Intake & Output 03/24/19 03/25/19 03/26/19 06:59 06:59 06:59 Intake Total 1131 1285 350 Output Total 1300 2175 700 Balance -169 -890 -350 Weight 88.5 kg General appearance: PRESENT: no acute distress Head exam: PRESENT: atraumatic Eye exam: PRESENT: PERRLA Mouth exam: PRESENT: moist, tongue midline Teeth exam: PRESENT: poor dentation Neck exam: ABSENT: carotid bruit, JVD, lymphadenopathy, thyromegaly Respiratory exam: PRESENT: clear to auscultation rian. ABSENT: rales, rhonchi, wheezes Cardiovascular exam: PRESENT: RRR. ABSENT: diastolic murmur, rubs, systolic murmur GI/Abdominal exam: PRESENT: normal bowel sounds, soft. ABSENT: distended, guarding, mass, organolmegaly, rebound, tenderness Rectal exam: PRESENT: deferred Extremities exam: PRESENT: full ROM. ABSENT: calf tenderness, clubbing, pedal edema Neurological exam: PRESENT: alert, awake, oriented to person, oriented to place, oriented to time, oriented to situation, CN II-XII grossly intact. ABSENT: motor sensory deficit Results Laboratory Results: 03/25/19 04:29 03/25/19 04:29 03/25/19 03/25/19 04:29 04:29 WBC 11.8 H RBC 3.79 L Hgb 10.1 L Hct 30.3 L MCV 80 MCH 26.8 L MCHC 33.4 RDW 14.7 H Plt Count 567 H Seg Neutrophils % 64.5 Lymphocytes % 22.5 Monocytes % 10.3 Eosinophils % 2.3 Basophils % 0.4 Absolute Neutrophils 7.6 Absolute Lymphocytes 2.7 Absolute Monocytes 1.2 Absolute Eosinophils 0.3 Absolute Basophils 0.0 Sodium 135.2 L Potassium 5.7 H Chloride 99 Carbon Dioxide 28 Anion Gap 8 BUN 19 Creatinine 1.46 H Est GFR ( Amer) > 60 Est GFR (Non-Af Amer) 52 L Glucose 203 H Calcium 8.9 Magnesium 2.2 Total Bilirubin 0.2 AST 18 ALT 19 L Alkaline Phosphatase 134 H Total Protein 6.8 Albumin 3.0 L Impressions: Foot X-Ray 03/15/19 17:35 IMPRESSION: FRACTURES OF THE 1ST TOE AND DISTAL 2ND AND 3RD METATARSALS. MILD DIFFUSE SOFT TISSUE SWELLING. NO RADIOGRAPHIC FINDINGS OF OSTEOMYELITIS. Assessment and Plan - Diagnosis (1) Gangrene of right foot Is this a current diagnosis for this admission?: Yes Plan: IV fluid challenge, vancomycin and cefepime for coverage of MRSA and Pseudomonas, follow-up surgical consult 03/20/2019- rt great toe gangrene s/p rt great toe amputation on wound vac. presently on vanc and zosyn 03/21/2019-patient admitted with right great toe gangrene status post amputation of the right great toe on wound VAC. Surgical team is following the patient on regular basis. Presently on vancomycin and Zosyn plan is to continue the present management. 03/22/2019-patient is admitted with a right great foot gangrene status post amputation and wound VAC placement. Plan is to keep him here another 48 to 72 hours on cart to continue antibiotic therapy then he will go home with wound VAC and follow-up with the wound care center. 03/23/2019-patient admitted with right great toe gangrene status post amputation of the right great toe with wound VAC placement. Wound cultures were positive for Enterobacter and enterococcus. To start the antibiotics today apparently antibiotics fell off the [place]. To restart on Zosyn and vancomycin. 03/24/[id number]-rqhj-old male diabetic patient admitted with right great toe gangrene status post amputation has a wound VAC. Recently on IV vancomycin and Zosyn. Cultures are positive for Enterobacter and enterococcus. Plan is to continue the present management. 03/25/[id number]-zkbu-old male admitted with diabetic great toe gangrene with infection status post amputation wound VAC is in place. These are positive for Staphylococcus, enterococcus, Enterobacter. Presently on IV vancomycin and Zosyn. Plan is to continue with his antibiotics (2) Hyperglycemia due to type 2 diabetes mellitus Qualifiers: Diabetes mellitus long term care pharmacist insulin use: with long term care pharmacist use Qualified Code(s): E11.65 - Type 2 diabetes mellitus with hyperglycemia; Z79.4 - assisted (current) use of insulin Is this a current diagnosis for this admission?: No Plan: 03/20/2019- h/o type 2 dm .latest blood sugar is 73 plan is to continue lantus 40 and insulin sliding scale. 03/21/2019-patient has history of type 2 diabetes mellitus blood sugar this morning is 101 well-controlled presently on Lantus 40 units in the morning and insulin sliding scale plan is to continue the present management and to check hemoglobin A1c. The globin A1c came back 14. Dietary consult will be re quested. 03/22/2019-patient blood sugar today is 133 well-controlled ,hemoglobin A1c is more than 14 again today dietary advice was given complex with medications also advised. 03/23/2019-patient's latest blood sugar is 142 stable. Hemoglobin A1c is 14. Dietary consult was provided during the hospital stay. 03/24/2019-patient blood sugar today is 131. Plan is to continue the insulin sliding scale and dietary consult was done. 03/25/2019-patient's blood sugar is 224 today hemoglobin A1c is more than 14 presently on insulin sliding scale. To start on Lantus 10 units twice daily from today. Dietary consult was provided. (3) Hypertension Qualifiers: Hypertension type: essential hypertension Qualified Code(s): I10 - sential (primary) hypertension Is this a current diagnosis for this admission?: Yes Plan: Continue amlodipine. 03/20/2019- latest bp is 136/85 to continue amlodepine. 09/21/2018-patient blood pressure today is 147/80 presently on amlodipine plan is to continue the present management. 03/22/2019-patient blood pressure today is 148/90. Presently on amlodipine plan is to continue the present management. 03/23/2019-patient blood pressure today is 135/85 stable. Plan is to continue amlodipine at this time. 03/24/2019-patient blood pressure today is 163/83. Plan is to add lisinopril to the present medication. 03/25/2019-patient blood pressure today is 127/78. Presently on amlodipine milligrams p.o. daily. Is allergic to ROSS inhibitors. (4) Hyperkalemia Is this a current diagnosis for this admission?: Yes Plan: Without peak T waves, secondary to uncontrolled hyperglycemia. Follow-up chemistry 03/20/2019- latest potassium is 4.6 and hyperkalemia resolved. 03/21/2019-serum potassium is 4.8 hyperkalemia is resolved. 03/22/2019-patient serum potassium is 5.1 high normal plan is to closely monitor the potassium levels on daily basis. 03/23/2019-patient serum potassium is elevated 5.2 to Veltassa 1 dose today. 03/24/2019-serum potassium today is 5.1. given veltassa yesterday. Plan is to closely monitor the potassium levels on regular basis low potassium diet was recommended. 03/25/2019-patient serum potassium is persistently high 5.7. Started on Veltassa on daily basis today. - Time Time Spent with patient: 25-34 minutes Medications reviewed and adjusted accordingly: Yes Anticipated discharge: Home with Homehealth
[2019-03-25] MEDS: INSULIN GLARGINE,HUM.REC.ANLOG 1,000 UNIT/10 ML VIAL SUBCUT SCH ×2 (11:41→22:06)
[2019-03-25] MEDS ORDERED: SODIUM POLYSTYRENE SULFONATE 15 GM/60 ML PO ONE (12:00)
[2019-03-25] MEDS: PATIROMER 8.4 GM SUSP PACKET PO SCH (19:33)
[2019-03-26] MEDS: MORPHINE SULFATE 10 MG/ML INJ IV PRN ×4 (04:14→16:56)
[2019-03-26] MEDS: HEPARIN SOD (PORCINE) 5,000 UNIT/ML 1 ML VIAL SUBCUT SCH ×3 (05:22→21:29)
[2019-03-26] MEDS: PIPERACILLIN SODIUM/TAZOBACTAM 3.375 GM in NORMAL SALINE 100 ML IV SCH ×4 (05:22→23:17)
[2019-03-26] MEDS: VANCOMYCIN HCL 750 MG in DEXTROSE 5%-WATER 250 ML IV SCH ×2 (06:16→17:31)
[2019-03-26] MEDS: INSULIN LISPRO 100 UNIT/ML 3 ML VIAL SUBCUT SCH ×4 (07:28→21:30)
[2019-03-26] MEDS: DOCUSATE SODIUM 100 MG CAPSULE PO SCH ×2 (10:25→17:30)
[2019-03-26] MEDS: INSULIN GLARGINE,HUM.REC.ANLOG 1,000 UNIT/10 ML VIAL SUBCUT SCH ×2 (10:25→21:30)
[2019-03-26] MEDS: AMLODIPINE BESYLATE 10 MG TABLET PO SCH (10:25)
[2019-03-26] MEDS: DULOXETINE HCL 30 MG CAPSULE.DR PO SCH ×2 (10:25→21:30)
--- NOTE | 2019-03-26 14:01 | RADIOLOGY REPORT (SQ) ---
EXAM DESCRIPTION: PICC INSERTION; FLUORO/CV PLACEMENT; U/S GUIDE FOR VASCULAR ACCESS COMPLETED DATE/TIME: 03/26/2019 10:07 am REASON FOR STUDY: Outpatient IV Antibiotic treatment; IV ABX; IV ACCESS COMPARISON: None. FLUOROSCOPY TIME: 0.5 minutes. 1 images saved to PACS. TECHNIQUE: Fluoroscopic and ultrasound guided PICC placement. LIMITATIONS: None. PROCEDURE: After written consent and assessment were obtained, the patient was brought into the fluo roscopy room and placed supine on the table. Ultrasound evaluation of potential access sites were per formed. After successfully identifying a patent left basilic vein, the left arm was prepped and drape d in a sterile fashion along with the ultrasound probe. The entry site was anesthetized with 1% lidoc chica. A 21 gauge 7 cm needle was advanced through the skin and into the basilic vein under live ultra sound guidance. An ultrasound image was saved to PACS confirming access site. A .018 guide wire was then inserted through the needle and into the venous system. The needle was then removed and an 11 b lade scalpel was used to make a 1cm skin incision. A 5 fr peel-away sheath was advanced over the wir e and into the venous system. A measurement was then made using the existing wire and live fluoroscop ic guidance. The wire was then removed and trimmed. The PICC was advanced through the peel-away sheat h and into the venous system. The peel-away sheath was removed and the catheter was adhered to the pa tients arm with a stat lock. The catheter was then aspirated and flushed and a sterile bandage was pl aced over the access site. A fluoroscopic spot image was saved to PACS confirming the catheter tip w ithin the superior vena cava. IMPRESSION: SUCCESSFUL PLACEMENT OF A 5 FR DUAL LUMEN 45 CM PICC IN THE LEFT BASILIC VEIN. COMMENT: Patient medication list reviewed: Yes- Quality ID# 130:Eligible professional attests to doc umenting in the medical record they obtained, updated, or reviewed the patient's current medications. . Quality ID 145: Final reports for procedures using fluoroscopy that document radiation exposure obdulio samreen, or exposure time and number of fluorographic images (if radiation exposure indices are not avail able) Quality ID #76: The patient was prepped and draped using maximum sterile barrier technique including cap, mask, sterile gown, sterile gloves, a large sterile sheet, hand hygiene, and 2% Chlorhexidine fo r cutaneous antisepsis. When ultrasound is used, sterile ultrasound techniques are followed requiring sterile gel and sterile probes. TECHNICAL DOCUMENTATION: JOB ID: [id number] [employer]- All Rights Reserved rev-01/13 Reading location - IP/workstation name: [email or web address]
--- NOTE | 2019-03-26 14:38 | PDOC DISCHARGE SUMMARY ---
General - Admit/Disc Date/PCP Admission Date/Primary Care Provider: 03/16/19 01:[facility] Discharge Date: 03/26/19 - Discharge Diagnosis (1) Gangrene of right foot Is this a current diagnosis for this admission?: Yes Summary: IV fluid challenge, vancomycin and cefepime for coverage of MRSA and Pseudomonas, follow-up surgical consult 03/20/2019- rt great toe gangrene s/p rt great toe amputation on wound vac. presently on vanc and zosyn 03/21/2019-patient admitted with right great toe gangrene status post amputation of the right great toe on wound VAC. Surgical team is following the patient on regular basis. Presently on vancomycin and Zosyn plan is to continue the presen t management. 03/22/2019-patient is admitted with a right great foot gangrene status post amputation and wound VAC placement. Plan is to keep him here another 48 to 72 hours on cart to continue antibiotic therapy then he will go home with wound VAC and follow-up with the wound care center. 03/23/2019-patient admitted with right great toe gangrene status post amputation of the right great toe with wound VAC placement. Wound cultures were positive for Enterobacter and enterococcus. To start the antibiotics today apparently antibiotics fell off the [place]. To restart on Zosyn and vancomycin. 03/24/[id number]-zimn-old male diabetic patient admitted with right great toe gangrene status post amputation has a wound VAC. Recently on IV vancomycin and Zosyn. Cultures are positive for Enterobacter and enterococcus. Plan is to continue the present management. 03/25/[id number]-sjul-old male admitted with diabetic great toe gangrene with infection status post amputation wound VAC is in place. These are positive for Staphylococcus, enterococcus, Enterobacter. Presently on IV vancomycin and Zosyn. Plan is to continue with his antibiotics 03/26/2019-patient is going home with wound VAC he was advised to follow-up with wound care center. He is also going home on IV antibiotics vancomycin 1 g daily for the next 2 weeks. (2) Hyperglycemia due to type 2 diabetes mellitus Is this a current diagnosis for this admission?: No Summary: 03/20/2019- h/o type 2 dm .latest blood sugar is 73 plan is to continue lantus 40 and insulin sliding scale. 03/21/2019-patient has history of type 2 diabetes mellitus blood sugar this morning is 101 well-controlled presently on Lantus 40 units in the morning and insulin sliding scale plan is to continue the present management and to check hemoglobin A1c. The globin A1c came back 14. Dietary consult will be requested. 03/22/2019-patient blood sugar today is 133 well-controlled ,hemoglobin A1c is more than 14 again today dietary advice was given complex with medications also advised. 03/23/2019-patient's latest blood sugar is 142 stable. Hemoglobin A1c is 14. Dietary consult was provided during the hospital stay. 03/24/2019-patient blood sugar today is 131. Plan is to continue the insulin sliding scale and dietary consult was done. 03/25/2019-patient's blood sugar is 224 today hemoglobin A1c is more than 14 presently on insulin sliding scale. To start on Lantus 10 units twice daily from today. Dietary consult was provided. 03/26/2019-patient latest blood sugar today is 187. Diabetic supplies will be provided for the patient to take home. (3) Hypertension Is this a current diagnosis for this admission?: Yes Summary: Continue amlodipine. 03/20/2019- latest bp is 136/85 to continue amlodepine. 09/21/2018-patient blood pressure today is 147/80 presently on amlodipine plan is to continue the present management. 03/22/2019-patient blood pressure today is 148/90. Presently on amlodipine plan is to continue the present management. 03/23/2019-patient blood pressure today is 135/85 stable. Plan is to continue amlodipine at this time. 03/24/2019-patient blood pressure today is 163/83. Plan is to add lisinopril to the present medication. 03/25/2019-patient blood pressure today is 127/78. Presently on amlodipine milligrams p.o. daily. Is allergic to ROSS inhibitors. 03/26/2019-patient blood pressure today is 149/83. Stable. Patient is advised to continue amlodipine at home. (4) Hyperkalemia Is this a current diagnosis for this admission?: Yes Summary: Without peak T waves, secondary to uncontrolled hyperglycemia. Follow-up chemistry 03/20/2019- latest potassium is 4.6 and hyperkalemia resolved. 03/21/2019-serum potassium is 4.8 hyperkalemia is resolved. 03/22/2019-patient serum potassium is 5.1 high normal plan is to closely monitor the potassium levels on daily basis. 03/23/2019-patient serum potassium is elevated 5.2 to Veltassa 1 dose today. 03/24/2019-serum potassium today is 5.1. given veltassa yesterday. Plan is to closely monitor the potassium levels on regular basis low potassium diet was recommended. 03/25/2019-patient serum potassium is persistently high 5.7. Started on Veltassa on daily basis today. 03/26/2019-low potassium diet was advised latest potassium level is 5.1. - Additional Information Resuscitation Status: Full Code Discharge Diet: Diabetic Discharge Activity: Activity As Tolerated Prescriptions: Insulin Aspart [Novolog Insulin (Aspart) 100 unit/mL] 15 unit SUBCUT AC #2 vial Insulin Lispro [Humalog Insulin (Lispro) 100 unit/mL] 0 - 12 unit SUBCUT ACHS 2 Days vial Home Medications: Insulin Detemir [Levemir Insulin 100 units/mL Insulin Pen] 80 unit SUBCUT BIDBS 03/01/16 Amlodipine Besylate [Norvasc 10 mg Tablet] 5 mg PO DAILY 11/04/18 Omeprazole 20 mg PO BID 03/16/19 Insulin Aspart [Novolog Insulin (Aspart) 100 unit/mL] 15 unit SUBCUT AC #2 vial 03/26/19 Insulin Lispro [Humalog Insulin (Lispro) 100 unit/mL] 0 - 12 unit SUBCUT ACHS 2 Days vial 03/26/19 History of Present Illness History of Present Illness: JOMAR OLIVO is a 49 year old male 49 year old male with a past medical history of former alcoholism with gastritis and upper GI bleed, peripheral vascular disease, peripheral neuropathy and poorly controlled insulin-dependent diabetes. He presents with 72 hours of fever and chills, pain and swelling to his left great toe and foot prompting evaluation in the emergency room where he is found to have sepsis with toe/foot gangrene and new Charcot foot deformity, lactic acidosis, hyperkalemia, hyponatremia. He started on empiric antibiotics and referred to the hospitalist for admission. Patient admits previous diabetic foot ulcer in the opposite toe but without current complaints. Patient admits to chronic lifestyle and medication noncompliance. Physical Exam Vital Signs: Temp Pulse Resp BP Pulse Ox 98.2 F 78 16 154/81 H 95 03/26/19 11:35 03/26/19 14:00 03/26/19 11:35 03/26/19 11:35 03/26/19 11:35 Intake & Output 03/25/19 03/26/19 03/27/19 06:59 06:59 06:59 Intake Total 1285 1400 1030 Output Total 2175 2000 625 Balance -890 -600 405 Weight 89.3 kg General appearance: PRESENT: no acute distress Head exam: PRESENT: atraumatic Eye exam: PRESENT: PERRLA Mouth exam: PRESENT: moist, tongue midline Teeth exam: PRESENT: poor dentation Neck exam: ABSENT: carotid bruit, JVD, lymphadenopathy, thyromegaly Respiratory exam: PRESENT: clear to auscultation rian. ABSENT: rales, rhonchi, wheezes Cardiovascular exam: PRESENT: RRR. ABSENT: diastolic murmur, rubs, systolic murmur GI/Abdominal exam: PRESENT: normal bowel sounds, soft. ABSENT: distended, guarding, mass, organolmegaly, rebound, tenderness Rectal exam: PRESENT: deferred Extremities exam: PRESENT: other - Wound VAC is attached to the right foot. Neurological exam: PRESENT: alert, awake, oriented to person, oriented to place, oriented to time, oriented to situation, CN II-XII grossly intact. ABSENT: motor sensory deficit Psychiatric exam: PRESENT: appropriate affect, normal mood. ABSENT: homicidal ideation, suicidal ideation Results Laboratory Results: 03/25/19 04:29 03/25/19 04:29 Impressions: Foot X-Ray 03/15/19 17:35 IMPRESSION: FRACTURES OF THE 1ST TOE AND DISTAL 2ND AND 3RD METATARSALS. MILD DIFFUSE SOFT TISSUE SWELLING. NO RADIOGRAPHIC FINDINGS OF OSTEOMYELITIS. Guidance Fluoroscopy 03/26/19 00:00 IMPRESSION: SUCCESSFUL PLACEMENT OF A 5 FR DUAL LUMEN 45 CM PICC IN THE LEFT BASILIC VEIN. Interventional Vascular Procedure 03/26/19 00:00 IMPRESSION: SUCCESSFUL PLACEMENT OF A 5 FR DUAL LUMEN 45 CM PICC IN THE LEFT BASILIC VEIN. PICC Line Insertion 03/26/19 07:00 IMPRESSION: SUCCESSFUL PLACEMENT OF A 5 FR DUAL LUMEN 45 CM PICC IN THE LEFT BASILIC VEIN. Qualifiers - * PATIENT BEING DISCHARGED WITH ANY OF THE FOLLOWING DIAGNOSIS: No VTE patient discharged on overlapping Therapy?: No Acute Heart Failure - Is this a Heart Failure Patient?: No Plan Time Spent: Greater than 30 Minutes
[2019-03-26] MEDS: PATIROMER 8.4 GM SUSP PACKET PO SCH (17:03)
[2019-03-27] MEDS: MORPHINE SULFATE 10 MG/ML INJ IV PRN (04:37)
[2019-03-27 04:58] VITALS: BP 140/80
[2019-03-27] MEDS: VANCOMYCIN HCL 750 MG in DEXTROSE 5%-WATER 250 ML IV SCH (05:08)
[2019-03-27] MEDS: HEPARIN SOD (PORCINE) 5,000 UNIT/ML 1 ML VIAL SUBCUT SCH (05:08)
[2019-03-27 05:37] LABS: VANCOMYCIN,TROUGH 11.1 ug/mL (5.0-20.0)
[2019-03-27] MEDS: PIPERACILLIN SODIUM/TAZOBACTAM 3.375 GM in NORMAL SALINE 100 ML IV SCH (06:52)
[2019-03-27] MEDS: INSULIN LISPRO 100 UNIT/ML 3 ML VIAL SUBCUT SCH (08:00)
== END 2019-03-27 09:00 | disposition home health service (06) | DRG 854 ==
LOC: ER 16:31 → EH 03-16 01:52 → 4S 03-16 12:57
PROVIDERS: ADMIT Internal Medicine; ATTEND Internal Medicine
PROC: 0Y6P0Z0 Detachment at Right 1st Toe, Complete, Open Approach (ICD-10-PCS; principal; 2019-03-17 08:00)
PROC: 02HV33Z Insertion of Infusion Device into Superior Vena Cava, Percutaneous Approach (ICD-10-PCS; 2019-03-26)
PROC: B5181ZA Fluoroscopy of Superior Vena Cava using Low Osmolar Contrast, Guidance (ICD-10-PCS; 2019-03-26)
PROC: B548ZZA Ultrasonography of Superior Vena Cava, Guidance (ICD-10-PCS; 2019-03-26)
DX: A41.9 Sepsis, unspecified organism (principal); N17.9 Acute kidney failure, unspecified; E11.52 Type 2 diabetes mellitus with diabetic peripheral angiopathy with gangrene; I96 Gangrene, not elsewhere classified; E87.1 Hypo-osmolality and hyponatremia; E87.5 Hyperkalemia; B95.62 Methicillin resistant Staphylococcus aureus infection as the cause of diseases classified elsewhere; B96.5 Pseudomonas (aeruginosa) (mallei) (pseudomallei) as the cause of diseases classified elsewhere; E11.65 Type 2 diabetes mellitus with hyperglycemia; I10 Essential (primary) hypertension; E11.51 Type 2 diabetes mellitus with diabetic peripheral angiopathy without gangrene; F10.20 Alcohol dependence, uncomplicated; E11.42 Type 2 diabetes mellitus with diabetic polyneuropathy; E11.610 Type 2 diabetes mellitus with diabetic neuropathic arthropathy; F31.9 Bipolar disorder, unspecified; E78.00 Pure hypercholesterolemia, unspecified; Z79.4 Long term (current) use of insulin; Z91.14 Patient's other noncompliance with medication regimen; Z83.3 Family history of diabetes mellitus; Z82.49 Family history of ischemic heart disease and other diseases of the circulatory system; Z88.8 Allergy status to other drugs, medicaments and biological substances; Z91.012 Allergy to eggs
CPT/HCPCS: 01480; 36415; 36569; 76937; 77001; 80048; 80053; 80061; 80202; 82565; 82803; 82962; 83036; 83605; 83735; 85025; 87040; 87070; 87075; 87077; 87186; 87205; 88305; 88311; 96361; 96365; 96367; 99284; J0692; J1642; J1644; J1815; J2060; J2250; J2270; J2405; J2543; J2704; J2765; J3010; J3370; J3490; J7030; J7050; J7060; S0028; S0164

== ENCOUNTER → 2019-04-06 | Outpatient (CLI) | payer BC ==
--- NOTE | 2019-04-06 13:37 | RADIOLOGY REPORT (SQ) ---
EXAM DESCRIPTION: CHEST PA/LATERAL COMPLETED DATE/TIME: 04/06/2019 1:21 pm REASON FOR STUDY: ULCERL; PNEUMOTHORAX COMPARISON: None. EXAM PARAMETERS: NUMBER OF VIEWS: two views TECHNIQUE: Digital Frontal and Lateral radiographic views of the chest acquired. RADIATION DOSE: NA LIMITATIONS: none FINDINGS: LUNGS AND PLEURA: Minimal linear left basilar opacities. Unremarkable right hemithorax. No pleural effusion or pneumothorax. MEDIASTINUM AND HILAR STRUCTURES: No masses or contour abnormalities. HEART AND VASCULAR STRUCTURES: Heart normal size. No evidence for failure. BONES: No acute findings. HARDWARE: Left approach PICC tip terminates at cavoatrial junction. OTHER: No other significant finding. IMPRESSION: Minimal linear left basilar opacities, likely atelectasis. No pneumothorax. TECHNICAL DOCUMENTATION: JOB ID: [id number] [employer]- All Rights Reserved Reading location - IP/workstation name: [email or web address]
--- NOTE | 2019-04-06 13:47 | RADIOLOGY REPORT (SQ) ---
EXAM DESCRIPTION: FOOT RIGHT COMPLETE COMPLETED DATE/TIME: 04/06/2019 1:21 pm REASON FOR STUDY: ULCERL; PNEUMOTHORAX L97.514 NON-PRS CHRONIC ULCER OTH PRT RIGHT FOOT W NECROSIS E11.621 TYPE 2 DIABETES MELLITUS WITH FOOT ULCER J93.9 PNEUMOTHORAX, UNSPECIFIED COMPARISON: None. NUMBER OF VIEWS: Three views. TECHNIQUE: AP, lateral and oblique radiographic images acquired of the right foot. LIMITATIONS: None. FINDINGS: MINERALIZATION: Decreased forefoot mineralization, likely secondary to disuse. BONES: Postsurgical changes from the 1st mid metatarsal amputation with adjacent heterotopic ossifica tion and bony fragments. There is periosteal reaction about the previously seen distal 2nd and 3rd m etatarsal fractures. There is mild medial displacement of the distal fracture fragments and shorteni ng. No new fractures identified. Alignment is unchanged. JOINTS: No dislocation. SOFT TISSUES: Soft tissue swelling about the forefoot. OTHER: No other significant finding. IMPRESSION: 1. Postsurgical changes from the 1st mid metatarsal amputation with soft tissue swellin g about the forefoot. 2. Callus formation and periosteal reaction about the displaced distal 2nd and 3rd metatarsal fractu res. No new fractures identified. TECHNICAL DOCUMENTATION: JOB ID: [id number] [employer]- All Rights Reserved Reading location - IP/workstation name: [email or web address]
== END ==
LOC: WC 12:58
PROVIDERS: ATTEND Preventive Medicine Undersea and Hyperbaric Medicine
DX: L97.514 Non-pressure chronic ulcer of other part of right foot with necrosis of bone (principal); E11.621 Type 2 diabetes mellitus with foot ulcer; J93.9 Pneumothorax, unspecified
CPT/HCPCS: 71046

== ENCOUNTER 2019-04-12 15:37 | Inpatient (IN) | payer OTHER, BC ==
[2019-04-12 16:09] LABS: HEMATOCRIT 25.2 % (37.9-51.0); HEMOGLOBIN 8.2 g/dL (13.5-17.0); MEAN CORPUSCULAR HEMOGLOBIN 25.2 pg (27.0-33.4); MEAN CORPUSCULAR HGB CONC 32.5 g/dL (32.0-36.0); MEAN CORPUSCULAR VOLUME 78 fl (80-97); PLATELET COUNT 449 10^3/uL (150-450); RED BLOOD COUNT 3.25 10^6/uL (4.35-5.55); RED CELL DISTRIBUTION WIDTH 15.6 % (11.5-14.0); WHITE BLOOD COUNT 8.3 10^3/uL (4.0-10.5)
[2019-04-12 16:12] LABS: INTERNATIONAL RATION (INR) 1.27
[2019-04-12 16:16] LABS: VENOUS BLOOD BASE EXCESS 2.3 mmol/L; VENOUS BLOOD PH 7.46 (7.30-7.42)
[2019-04-12 16:25] LABS: ALBUMIN 3.1 g/dL (3.5-5.0); ALKALINE PHOSPHATASE 451 U/L (38-126); ANION GAP 12 (5-19); ASPARTATE AMINO TRANSFERASE 61 U/L (17-59); BILIRUBIN,DIRECT 0.4 mg/dL (0.0-0.4); BILIRUBIN,TOTAL 0.6 mg/dL (0.2-1.3); BLOOD UREA NITROGEN 22 mg/dL (7-20); CALCIUM 8.5 mg/dL (8.4-10.2); CARBON DIOXIDE 25 mmol/L (22-30); CHLORIDE 98 mmol/L (98-107); GLUCOSE 178 mg/dL (75-110); POTASSIUM 4.1 mmol/L (3.6-5.0); TOTAL PROTEIN 6.2 g/dL (6.3-8.2)
[2019-04-12 16:52] LABS: ABSOLUTE LYMPHOCYTES# (MANUAL) 0.5 10^3/uL (0.5-4.7); ABSOLUTE MONOCYTES # (MANUAL) 0.2 10^3/uL (0.1-1.4); BAND NEUTROPHILS % (MANUAL) 7 % (3-5); BASOPHILS % (MANUAL) 0 % (0-2); EOSINOPHILS % (MANUAL) 0 % (0-6); HYPOCHROMASIA 1+; LYMPHOCYTES % (MANUAL) 6 % (13-45); MONOCYTES % (MANUAL) 2 % (3-13); PLATELET COMMENT ADEQUATE; SEGMENTED NEUTROPHILS % (MAN) 85 % (42-78); TOTAL CELLS COUNTED 100
[2019-04-12] MEDS: NORMAL SALINE 1000 ML 1,000 ML IV PRN ×2 (18:25→23:46)
[2019-04-12 18:31] LABS: APPEARANCE,URINE CLEAR; BILIRUBIN,URINE NEGATIVE (NEGATIVE); COLOR,URINE YELLOW; GLUCOSE, URINE 50 mg/dL (NEGATIVE); KETONES,URINE NEGATIVE (NEGATIVE); LEUKOCYTE ESTERASE,URINE NEGATIVE (NEGATIVE); NITRITE,URINE NEGATIVE (NEGATIVE); PROTEIN,URINE >=500 mg/dL (NEGATIVE); URINE SPECIFIC GRAVITY 1.009
[2019-04-12] MEDS ORDERED: MORPHINE SULFATE 10 MG/ML INJ IV ONE (18:38)
[2019-04-12] MEDS ORDERED: PIPERACILLIN/TAZOBACTAM 4.5 GM VIAL IV ONE (20:12)
[2019-04-12] MEDS ORDERED: VANCOMYCIN HCL INJ 1000 MG VIAL IV ONE (20:12)
--- NOTE | 2019-04-12 20:19 | ER Document Report ---
ED General - General Chief Complaint: Shortness Of Breath Stated Complaint: DIFFICULTY BREATHING Time Seen by Provider: 04/12/19 18:14 Primary Care Provider: CATRACHITO TAN, CARE GIVER [Primary Care Provider] - Follow up as needed TRAVEL OUTSIDE OF THE [place] IN LAST 30 DAYS: No - HPI Notes: 49-year-old male who presents with possible recurrent infection in his right foot. He has a complicated history, including recent discharge around March 27 after a great toe amputation at the [facility]. 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 Has an antecedent history of diabetes and toe ulcer. According to the patient he was discharged, what he believes was cefepime and vancomycin, however this was stopped approximately week ago. He claims he is supposed to still be taking [facility], but [facility] stopped coming and he has been off antibiotics for he thinks about a week. He describes increased swelling in his right foot, and increased feeling of warmth. Equivocal increase in drainage from his wound. Subjective fever and just not feeling well. Moderate intensity, gradual onset, nonradiating. There is a April 09 note in the system from an infectious disease physician that references different antibiotic combinations but does not specifically indicate only vancomycin. - Related Data Allergies/Adverse Reactions: ROSS Inhibitors Allergy (Severe, Verified 03/15/19 16:34) Angioneurotic Edema ARB-Angiotensin Receptor Antagonist Allergy (Severe, Verified 03/15/19 16:34) Angioneurotic Edema cyclobenzaprine HCl [From Flexeril] Allergy (Verified 03/15/19 16:34) eyes swell, SOB ibuprofen [Ibuprofen] Allergy (Verified 03/15/19 16:34) eyes swell, SOB naproxen [Naproxen] Allergy (Verified 03/15/19 16:34) eyes swell, SOB eggs Adverse Reaction (Intermediate, Uncoded 03/15/19 16:34) Hives Past Medical History - Social History Smoking Status: Never Smoker Chew tobacco use (# tins/day): No Drug Abuse: None Family History: DM, Hypertension Patient has suicidal ideation: No Patient has homicidal ideation: No - Past Medical History Cardiac Medical History: Reports: Hx Hypercholesterolemia, Hx Hypertension Denies: Hx Coronary Artery Disease, Hx Heart Attack Pulmonary Medical History: Denies: Hx Asthma, Hx Bronchitis, Hx COPD, Hx Pneumonia, Hx Tuberculosis Neurological Medical History: Denies: Hx Cerebrovascular Accident, Hx Seizures Endocrine Medical History: Reports: Hx Diabetes Mellitus Type 2. Denies: Hx Hyperthyroidism, Hx Hypothyroidism Renal/ Medical History: Denies: Hx Peritoneal Dialysis GI Medical History: Denies: Hx Cirrhosis, Hx Hepatitis Musculoskeletal Medical History: Denies Hx Arthritis Skin Medical History: Denies Hx Eczema, Denies Hx Psoriasis Psychiatric Medical History: Reports: Hx Bipolar Disorder, Hx Depression Infectious Medical History: Denies: Hx Hepatitis Past Surgical History: Reports: Hx Orthopedic Surgery - right thigh, right hand - Immunizations Immunizations up to date: Yes Hx Diphtheria, Pertussis, Tetanus Vaccination: Yes Review of Systems - Review of Systems Notes: Review of systems as in the history of present illness, otherwise negative x 10 systems. Physical Exam - Vital signs Vitals: Pulse Ox 87 L 04/12/19 15:41 - Notes Notes: General: Well developed . HEENT: Normocephalic, atraumatic. Pupils equal round reactive to light. No JVD. Chest: No trauma. Respiratory: Good air exchange, normal excursion. Cardiac: Regular rhythm. No murmurs or gallops. Abdomen: Soft, benign. Nondistended. Nontender. Back: No asymmetry or gross abnormality. Motor: Grossly normal power and tone. Neurologic: Alert, nonfocal. Cranial nerves II-12 are intact. Sensation intact. Vascular: Well perfused. Normal peripheral pulses. Skin: No petechiae or purpura. Extremities: Right first [facility]TP area shows an open wound with a small amount of yellowish drainage. There is a mild odor to the area. The foot itself is warm, appears to be mildly edematous. There is no significant erythema. Course - Re-evaluation Re-evalutation: 04/12/19 20:17 49-year-old male with the after mentioned symptoms, certainly concerning for recurrent osteomyelitis, spread or recurrent infection and cellulitis. Less likely abscess. Plan proceed with basic laboratory evaluation, lactate screening, fluids, reassess. As reviewed, there is no leukocytosis, chronic anemia is noted. Chemistry shows some mild increased renal dysfunction of her baseline. Plain films of the foot currently pending. Patient was noted to be febrile. Lactate is unremarkable. At this point, we will proceed with admission for continued cultures, antibiotic therapy. - Vital Signs Vital signs: Temp Pulse Resp BP Pulse Ox 101.7 F H 23 H 113/76 98 04/12/19 17:10 04/12/19 18:01 04/12/19 19:31 04/12/19 19:31 - Laboratory Result Diagrams: 04/12/19 15:50 04/12/19 15:50 Laboratory results interpreted by me: 04/12/19 04/12/19 04/12/19 15:50 15:50 15:50 RBC 3.25 L Hgb 8.2 L Hct 25.2 L MCV 78 L MCH 25.2 L RDW 15.6 H Seg Neuts % (Manual) 85 H Band Neutrophils % 7 H Lymphocytes % (Manual) 6 L Monocytes % (Manual) 2 L PT 16.0 H VBG pH Sodium 135.3 L BUN 22 H Creatinine 1.82 H Est GFR ( Amer) 48 L Est GFR (Non-Af Amer) 40 L Glucose 178 H AST 61 H Alkaline Phosphatase 451 H Total Protein 6.2 L Albumin 3.1 L Urine Protein Urine Glucose (UA) Urine Blood Urine Urobilinogen 04/12/19 04/12/19 15:50 18:19 RBC Hgb Hct MCV MCH RDW Seg Neuts % (Manual) Band Neutrophils % Lymphocytes % (Manual) Monocytes % (Manual) PT VBG pH 7.46 H Sodium BUN Creatinine Est GFR ( Amer) Est GFR (Non-Af Amer) Glucose AST Alkaline Phosphatase Total Protein Albumin Urine Protein >=500 H Urine Glucose (UA) 50 H Urine Blood SMALL H Urine Urobilinogen 2.0 H Discharge - Discharge Clinical Impression: Cellulitis Qualifiers: Site of cellulitis: unspecified site Qualified Code(s): L03.90 - Cellulitis, unspecified Condition: Serious Disposition: ADMITTED INPATIENT Admitting Provider: James (Hospitalist) Unit Admitted: Telemetry Referrals: CATRACHITO TAN NP [Primary Care Provider] - Follow up as needed
--- NOTE | 2019-04-12 20:43 | RADIOLOGY REPORT (SQ) ---
EXAM DESCRIPTION: XR RIGHT FOOT 3 OR MORE VIEWS COMPLETED DATE/TME: 04/12/2019 19:54 CLINICAL HISTORY: 49 years, Male, Recent 1st [facility] amp, eval for osteomyelitis COMPARISON: None. NUMBER OF VIEWS: TECHNIQUE: LIMITATIONS: None. FINDINGS: There is considerable soft tissue swelling involving the foot. The patient is status post amputation of the great toe. There is irregularity of the distal aspect of the remaining first metatarsal. There is no definite radiographic evidence of osteomyelitis. There are healing fractures of the next of the second and third metatarsals. IMPRESSION: Considerable soft tissue swelling. No definite radiographic evidence of osteomyelitis. copyright 2010 [employer]- All Rights Reserved
[2019-04-12] MEDS ORDERED: ACETAMINOPHEN 325 MG TABLET PO PRN (21:00)
[2019-04-12] MEDS ORDERED: NORMAL SALINE 1000 ML 1,000 ML IV PRN (21:00)
[2019-04-12] MEDS ORDERED: DEXTROSE 40% GEL 15 GM TUBE PO PRN ×2 (21:05)
[2019-04-12] MEDS ORDERED: DEXTROSE 50%-WATER 25 GM/50 ML DISP.SYRIN IV PRN ×2 (21:05)
[2019-04-12] MEDS ORDERED: GLUCAGON,HUMAN RECOMB 1 MG INJ IM PRN (21:05)
--- NOTE | 2019-04-12 21:59 | PDOC H&P ---
History of Present Illness Admission Date/PCP: 04/12/19 20:22 CATRACHITO TAN NP History of Present Illness: JOMAR OLIVO is a 49 year old male with insulin-dependent diabetes who rec ently had gangrene of the great toe of the right foot with osteomyelitis and had a toe amputated and completed 2 weeks of IV vancomycin on 04/09/2019. [facility] Foster, with infectious disease at [facility], put a note in our record that same day recommending that the vancomycin be stopped and that he continue on 2 more weeks of either Zosyn or Rocephin, because apparently the margins were not mentioned on the pathology report and she recommended 2 more weeks of antibiotics just to be safe. He came back in because he just was not feeling good and felt like his foot was swelling again. He has had a wound VAC on and that was discontinued and is supposed to be doing wet-to-dry dressings. He had a temperature of greater than 102 F in the ER. His creatinine was elevated a little bit above his usual elevated baseline. He is otherwise stable. He is being admitted for IV antibiotics and repeat imaging of his foot. Past Medical History Cardiac Medical History: Reports: Hyperlipidema, Hypertension Denies: Coronary Artery Disease, Myocardial Infarction Pulmonary Medical History: Denies: Asthma, Bronchitis, Chronic Obstructive Pulmonary Disease (COPD), Pneumonia, Tuberculosis Neurological Medical History: Denies: Seizures Endocrine Medical History: Reports: Diabetes Mellitus Type 2 Denies: Hyperthyroidism, Hypothyroidism GI Medical History: Denies: Cirrhosis, Hepatitis Musculoskeltal Medical History: Denies: Arthritis Skin Medical History: Denies: Eczema, Psoriasis Psychiatric Medical History: Reports: Bipolar Disorder, Depression Hematology: Denies: Anemia, Bleeding Tendencies Past Surgical History Past Surgical History: Reports: Orthopedic Surgery - right thigh, right hand Social History Smoking Status: Never Smoker Frequency of Alcohol Use: None Hx Recreational Drug Use: No Drugs: None Hx Prescription Drug Abuse: No Family History Family History: DM, Hypertension Parental Family History Reviewed: Yes Children Family History Reviewed: Yes Sibling(s) Family History Reviewed.: Yes Medication/Allergy Home Medications: Insulin Detemir [Levemir Insulin 100 units/mL Insulin Pen] 80 unit SUBCUT BIDBS 03/01/16 Amlodipine Besylate [Norvasc 5 mg Tablet] 5 mg PO DAILY 04/12/19 Insulin Aspart [Novolog Insulin 100 Unit/1 ml 10 ml] 15 unit SUBCUT AC 04/12/19 Omeprazole 20 mg PO BID 04/12/19 Oxycodone HCl/Acetaminophen [Percocet 5-325 mg Tablet] 1 tab PO Q6HP PRN 03/29 01/14 Allergies/Adverse Reactions: RSOS Inhibitors Allergy (Severe, Verified 03/15/19 16:34) Angioneurotic Edema ARB-Angiotensin Receptor Antagonist Allergy (Severe, Verified 03/15/19 16:34) Angioneurotic Edema cyclobenzaprine HCl [From Flexeril] Allergy (Verified 03/15/19 16:34) eyes swell, SOB ibuprofen [Ibuprofen] Allergy (Verified 03/15/19 16:34) eyes swell, SOB naproxen [Naproxen] Allergy (Verified 03/15/19 16:34) eyes swell, SOB eggs Adverse Reaction (Intermediate, Uncoded 03/15/19 16:34) Hives Review of Systems All systems: reviewed and no additional remarkable complaints except as stated - All systems were reviewed and were negative except as noted in the HPI Physical Exam Vital Signs: Temp Pulse Resp BP Pulse Ox 101.7 F H 23 H 113/76 98 04/12/19 17:10 04/12/19 18:01 04/12/19 19:31 04/12/19 19:31 General appearance: PRESENT: no acute distress, cooperative, disheveled Head exam: PRESENT: atraumatic, normocephalic Eye exam: PRESENT: EOMI, PERRLA. ABSENT: conjunctival injection, nystagmus Ear exam: PRESENT: normal external ear exam Mouth exam: PRESENT: moist, neck supple Throat exam: ABSENT: post pharyngeal erythema Neck exam: PRESENT: full ROM. ABSENT: carotid bruit, JVD, lymphadenopathy, meningismus, tenderness, thyromegaly Respiratory exam: PRESENT: clear to auscultation rian, symmetrical, unlabored. ABSENT: accessory muscle use, chest wall tenderness, crackles, prolonged expiratory phas, rhonchi, tachypnea, wheezes Cardiovascular exam: PRESENT: RRR, +S1, +S2 Pulses: PRESENT: normal carotid pulses Vascular exam: PRESENT: normal capillary refill GI/Abdominal exam: PRESENT: normal bowel sounds, soft. ABSENT: distended, guarding, rebound, tenderness Extremities exam: PRESENT: other - He has a wound where his recently amputated right great toe should be. There is what appears to be some purulent oozing. There is a bit of an odor coming from the wound as well.. ABSENT: clubbing, pedal edema Musculoskeletal exam: PRESENT: deformity - Missing right great toe as noted above Neurological exam: PRESENT: alert, awake, oriented to person, oriented to place, oriented to situation, CN II-XII grossly intact. ABSENT: motor sensory deficit Psychiatric exam: PRESENT: appropriate affect, normal mood Skin exam: PRESENT: dry, warm, other - Right foot wound as noted above Results Laboratory Results: 04/12/19 15:50 04/12/19 15:50 04/12/19 04/12/19 04/12/19 15:50 15:50 15:50 WBC 8.3 RBC 3.25 L Hgb 8.2 L Hct 25.2 L MCV 78 L MCH 25.2 L MCHC 32.5 RDW 15.6 H Plt Count 449 Seg Neutrophils % Not Reportable Lymphocytes % Not Reportable Monocytes % Not Reportable Eosinophils % Not Reportable Basophils % Not Reportable Absolute Neutrophils Not Reportable Absolute Lymphocytes Not Reportable Absolute Monocytes Not Reportable Absolute Eosinophils Not Reportable Absolute Basophils Not Reportable VBG pH VBG pCO2 VBG HCO3 VBG Base Excess Sodium 135.3 L Potassium 4.1 Chloride 98 Carbon Dioxide 25 Anion Gap 12 BUN 22 H Creatinine 1.82 H Est GFR ( Amer) 48 L Est GFR (Non-Af Amer) 40 L Glucose 178 H Lactic Acid 2.0 Calcium 8.5 Total Bilirubin 0.6 AST 61 H Alkaline Phosphatase 451 H Total Protein 6.2 L Albumin 3.1 L Urine Color Urine Appearance Urine pH Ur Specific [place] Urine Protein Urine Glucose (UA) Urine Ketones Urine Blood Urine Nitrite Ur Leukocyte Esterase Urine WBC (Auto) Urine RBC (Auto) 04/12/19 04/12/19 15:50 18:19 WBC RBC Hgb Hct MCV MCH MCHC RDW Plt Count Seg Neutrophils % Lymphocytes % Monocytes % Eosinophils % Basophils % Absolute Neutrophils Absolute Lymphocytes Absolute Monocytes Absolute Eosinophils Absolute Basophils VBG pH 7.46 H VBG pCO2 37.0 VBG HCO3 26.0 VBG Base Excess 2.3 Sodium Potassium Chloride Carbon Dioxide Anion Gap BUN Creatinine Est GFR ( Amer) Est GFR (Non-Af Amer) Glucose Lactic Acid Calcium Total Bilirubin AST Alkaline Phosphatase Total Protein Albumin Urine Color YELLOW Urine Appearance CLEAR Urine pH 6.0 Ur Specific [place] 1.009 Urine Protein >=500 H Urine Glucose (UA) 50 H Urine Ketones NEGATIVE Urine Blood SMALL H Urine Nitrite NEGATIVE Ur Leukocyte Esterase NEGATIVE Urine WBC (Auto) 2 Urine RBC (Auto) 2 Impressions: Foot X-Ray 04/12/19 19:54 IMPRESSION: Considerable soft tissue swelling. No definite radiographic evidence of osteomyelitis. copyright 2010 [employer]- All Rights Reserved Assessment and Plan - Diagnosis (1) Diabetic foot infection Is this a current diagnosis for this admission?: Yes Plan: Because of his creatinine being elevated I am going to put him on Rocephin instead of Zosyn. We will obtain repeat imaging of the foot to see if there is any residual osteomyelitis or tissue that needs to be debrided. Pending on the results the MRI, we may get a surgery consultation. (2) Diabetes mellitus type 2 in nonobese Is this a current diagnosis for this admission?: Yes Plan: We will continue his home medications plus a sliding scale (3) Acute kidney injury superimposed on chronic kidney disease Is this a current diagnosis for this admission?: Yes Plan: We will hydrate him and monitor his urine output and electrolytes. - Time Time Spent with patient: 35 or more minutes - Inpatient Certification Based on my medical assessment, after consideration of the patient's comorbidities, presenting symptoms, or acuity I expect that the services needed warrant INPATIENT care.: Yes I certify that my determination is in accordance with my understanding of [employer] 's requirements for reasonable and necessary INPATIENT services [42 CFR 412.3e].: Yes Medical Necessity: Need For IV Fluids, Need for IV Antibiotics, Risk of Com plication if Not Cared For in Hospital
[2019-04-12] MEDS: INSULIN LISPRO 100 UNIT/ML 3 ML VIAL SUBCUT SCH (22:00)
--- NOTE | 2019-04-12 22:57 | RADIOLOGY REPORT (SQ) ---
MR LOWER EXTREMITY WITHOUT IV CONTRAST EXAM DATE: 04/12/2019 12:00 AM CDT HISTORY: Right foot osteomyelitis. COMPARISON: None. TECHNIQUE: Multiplanar, multisequence MR imaging of the right foot without administration of intravenous gadolinium. FINDINGS: Amputation of the first digit to the level of the first metatarsal base. There is increased T2 signal within the metatarsal base without abnormal T1 signal. There are mildly displaced fractures of the second and third metatarsals with abnormal T1 and T2 signal there is also abnormal T1 and T2 signal within the distal fourth and fifth metatarsal heads, which may be reactive. There is soft tissue defect with subcutaneous edema overlying the first digit stump site. Diffuse edema throughout the intrinsic foot musculature with fatty atrophy is consistent with myositis, which may be neurogenic or reactive. IMPRESSION: 1. Status post amputation of the first digit with overlying postsurgical changes. Mildly abnormal bone marrow signal in the first metatarsal base which is likely postsurgical, although early osteomyelitis may have a similar appearance. 2. Mildly displaced fractures of the second and third metatarsals.
[2019-04-12] MEDS ORDERED: OXYCODONE-ACETAMINOPHEN 5-325 MG TABLET PO PRN (23:08)
[2019-04-12] MEDS ORDERED: OXYCODONE-ACETAMINOPHEN 5-325 MG TABLET ONE (23:41)
[2019-04-12] MEDS: HEPARIN SOD (PORCINE) 5,000 UNIT/ML 1 ML VIAL SUBCUT SCH (23:45)
[2019-04-13] MEDS: HEPARIN SOD (PORCINE) 5,000 UNIT/ML 1 ML VIAL SUBCUT SCH ×3 (05:43→21:37)
[2019-04-13] MEDS: PANTOPRAZOLE SODIUM 20 MG TABLET.DR PO SCH ×2 (05:44→17:30)
[2019-04-13 06:14] LABS: HEMATOCRIT 23.7 % (37.9-51.0)
[2019-04-13 06:21] LABS: HEMOGLOBIN 7.5 g/dL (13.5-17.0)
[2019-04-13 06:22] LABS: MEAN CORPUSCULAR VOLUME 78 fl (80-97); RED BLOOD COUNT 3.04 10^6/uL (4.35-5.55)
[2019-04-13 06:23] LABS: MEAN CORPUSCULAR HEMOGLOBIN 24.8 pg (27.0-33.4); MEAN CORPUSCULAR HGB CONC 31.8 g/dL (32.0-36.0); PLATELET COUNT 445 10^3/uL (150-450); RED CELL DISTRIBUTION WIDTH 15.6 % (11.5-14.0); WHITE BLOOD COUNT 17.7 10^3/uL (4.0-10.5)
[2019-04-13 06:27] LABS: ANION GAP 9 (5-19); BLOOD UREA NITROGEN 22 mg/dL (7-20); CALCIUM 7.8 mg/dL (8.4-10.2); CARBON DIOXIDE 26 mmol/L (22-30); CHLORIDE 103 mmol/L (98-107); GLUCOSE 164 mg/dL (75-110); POTASSIUM 3.5 mmol/L (3.6-5.0)
[2019-04-13] MEDS ORDERED: [UNRECOGNIZED DRUG - OTHER] SUBCUT SCH (08:00)
[2019-04-13] MEDS ORDERED: INSULIN DETEMIR 80 UNIT SUBCUT SCH (08:00)
[2019-04-13] MEDS ORDERED: INSULIN ASPART 15 UNIT SUBCUT SCH (08:00)
[2019-04-13] MEDS: INSULIN LISPRO 100 UNIT/ML 3 ML VIAL SUBCUT SCH ×7 (08:30→21:31)
[2019-04-13] MEDS: INSULIN GLARGINE,HUM.REC.ANLOG 1,000 UNIT/10 ML VIAL SUBCUT SCH ×2 (09:29→17:29)
[2019-04-13] MEDS ORDERED: CEFTRIAXONE SODIUM 2,000 MG in DEXTROSE 5%-WATER 100 ML IV SCH (10:00)
[2019-04-13] MEDS ORDERED: CEFTRIAXONE 2 GM/D5W RTU 2 GM/50 ML RTUPB IV SCH (10:00)
[2019-04-13] MEDS ORDERED: AMLODIPINE BESYLATE 5 MG TABLET PO SCH (10:00)
--- NOTE | 2019-04-13 12:55 | PDOC CONSULTATION ---
Consultation Consult Date: 04/13/19 Provider Consulted: MELISSA ALLEN Consult reason:: cellulitis rigt big toe amputation site History of Present Illness Admission Date/PCP: 04/12/19 20:22 CATRACHITO TAN NP History of Present Illness: JOMAR OLIVO is a 49 year old male with DM s/p amp right big toe a few weeks ago. Discharge with a wound vac but re-admitted for cellulitis amp site. MRI showed post amp changes vs. osteomyelitis. Past Medical History Cardiac Medical History: Reports: Hyperlipidema, Hypertension Denies: Coronary Artery Disease, Myocardial Infarction Pulmonary Medical History: Denies: Asthma, Bronchitis, Chronic Obstructive Pulmonary Disease (COPD), Pneumonia, Tuberculosis Neurological Medical History: Denies: Seizures Endocrine Medical History: Reports: Diabetes Mellitus Type 2 Denies: Hyperthyroidism, Hypothyroidism GI Medical History: Denies: Cirrhosis, Hepatitis Musculoskeltal Medical History: Denies: Arthritis Skin Medical History: Denies: Eczema, Psoriasis Psychiatric Medical History: Reports: Bipolar Disorder, Depression Hematology: Denies: Anemia, Bleeding Tendencies Past Surgical History Past Surgical History: Reports: Orthopedic Surgery - right thigh, right hand Social History Smoking Status: Never Smoker Frequency of Alcohol Use: None Hx Recreational Drug Use: No Drugs: None Hx Prescription Drug Abuse: No Family History Family History: DM, Hypertension Parental Family History Reviewed: Yes Children Family History Reviewed: No Sibling(s) Family History Reviewed.: No Medication/Allergy Home Medications: Insulin Detemir [Levemir Insulin 100 units/mL Insulin Pen] 80 unit SUBCUT BIDBS 03/01/16 Amlodipine Besylate [Norvasc 5 mg Tablet] 5 mg PO DAILY 04/12/19 Insulin Aspart [Novolog Insulin 100 Unit/1 ml 10 ml] 15 unit SUBCUT AC 04/12/19 Omeprazole 20 mg PO BID 04/12/19 Oxycodone HCl/Acetaminophen [Percocet 5-325 mg Tablet] 1 tab PO Q6HP PRN 0 04/12/19 Allergies/Adverse Reactions: ROSS Inhibitors Allergy (Severe, Verified 03/15/19 16:34) Angioneurotic Edema ARB-Angiotensin Receptor Antagonist Allergy (Severe, Verified 03/15/19 16:34) Angioneurotic Edema cyclobenzaprine HCl [From Flexeril] Allergy (Verified 03/15/19 16:34) eyes swell, SOB ibuprofen [Ibuprofen] Allergy (Verified 03/15/19 16:34) eyes swell, SOB naproxen [Naproxen] Allergy (Verified 03/15/19 16:34) eyes swell, SOB eggs Adverse Reaction (Intermediate, Uncoded 03/15/19 16:34) Hives Review of Systems Constitutional: PRESENT: as per HPI Physical Exam Vital Signs: Temp Pulse Resp BP Pulse Ox 98.6 F 78 15 122/66 96 04/13/19 08:24 04/13/19 08:24 04/13/19 03:36 04/13/19 08:24 04/13/19 08:24 Intake & Output 04/12/19 04/13/19 04/14/19 06:59 06:59 06:59 Intake Total 1390 1100 Balance 1390 1100 Weight 94.2 kg Exam: Right foot has some edema. Amputation site(big toe) looks relatively clean Results Laboratory Results: 04/13/19 05:50 04/13/19 05:50 04/12/19 04/12/19 04/12/19 15:50 15:50 15:50 WBC 8.3 RBC 3.25 L Hgb 8.2 L Hct 25.2 L MCV 78 L MCH 25.2 L MCHC 32.5 RDW 15.6 H Plt Count 449 Seg Neutrophils % Not Reportable Lymphocytes % Not Reportable Monocytes % Not Reportable Eosinophils % Not Reportable Basophils % Not Reportable Absolute Neutrophils Not Reportable Absolute Lymphocytes Not Reportable Absolute Monocytes Not Reportable Absolute Eosinophils Not Reportable Absolute Basophils Not Reportable VBG pH VBG pCO2 VBG HCO3 VBG Base Excess Sodium 135.3 L Potassium 4.1 Chloride 98 Carbon Dioxide 25 Anion Gap 12 BUN 22 H Creatinine 1.82 H Est GFR ( Amer) 48 L Est GFR (Non-Af Amer) 40 L Glucose 178 H Lactic Acid 2.0 Calcium 8.5 Total Bilirubin 0.6 AST 61 H Alkaline Phosphatase 451 H Total Protein 6.2 L Albumin 3.1 L Urine Color Urine Appearance Urine pH Ur Specific [place] Urine Protein Urine Glucose (UA) Urine Ketones Urine Blood Urine Nitrite Ur Leukocyte Esterase Urine WBC (Auto) Urine RBC (Auto) 04/12/19 04/12/19 04/13/19 15:50 18:19 05:50 WBC 17.7 H D RBC 3.04 L Hgb 7.5 L Hct 23.7 L MCV 78 L MCH 24.8 L MCHC 31.8 L RDW 15.6 H Plt Count 445 Seg Neutrophils % Lymphocytes % Monocytes % Eosinophils % Basophils % Absolute Neutrophils Absolute Lymphocytes Absolute Monocytes Absolute Eosinophils Absolute Basophils VBG pH 7.46 H VBG pCO2 37.0 VBG HCO3 26.0 VBG Base Excess 2.3 Sodium Potassium Chloride Carbon Dioxide Anion Gap BUN Creatinine Est GFR ( Amer) Est GFR (Non-Af Amer) Glucose Lactic Acid Calcium Total Bilirubin AST Alkaline Phosphatase Total Protein Albumin Urine Color YELLOW Urine Appearance CLEAR Urine pH 6.0 Ur Specific [place] 1.009 Urine Protein >=500 H Urine Glucose (UA) 50 H Urine Ketones NEGATIVE Urine Blood SMALL H Urine Nitrite NEGATIVE Ur Leukocyte Esterase NEGATIVE Urine WBC (Auto) 2 Urine RBC (Auto) 2 04/13/19 05:50 WBC RBC Hgb Hct MCV MCH MCHC RDW Plt Count Seg Neutrophils % Lymphocytes % Monocytes % Eosinophils % Basophils % Absolute Neutrophils Absolute Lymphocytes Absolute Monocytes Absolute Eosinophils Absolute Basophils VBG pH VBG pCO2 VBG HCO3 VBG Base Excess Sodium 138.4 Potassium 3.5 L Chloride 103 Carbon Dioxide 26 Anion Gap 9 BUN 22 H Creatinine 1.71 H Est GFR ( Amer) 52 L Est GFR (Non-Af Amer) 43 L Glucose 164 H Lactic Acid Calcium 7.8 L Total Bilirubin AST Alkaline Phosphatase Total Protein Albumin Urine Color Urine Appearance Urine pH Ur Specific [place] Urine Protein Urine Glucose (UA) Urine Ketones Urine Blood Urine Nitrite Ur Leukocyte Esterase Urine WBC (Auto) Urine RBC (Auto) Impressions: Lower Extremity MRI 04/12/19 00:00 IMPRESSION: 1. Status post amputation of the first digit with overlying postsurgical changes. Mildly abnormal bone marrow signal in the first metatarsal base which is likely postsurgical, although early osteomyelitis may have a similar appearance. 2. Mildly displaced fractures of the second and third metatarsals. Foot X-Ray 04/12/19 19:54 IMPRESSION: Considerable soft tissue swelling. No definite radiographic evidence of osteomyelitis. copyright 2011 [employer]- All Rights Reserved Assessment & Plan - Diagnosis (1) Diabetes mellitus type 2 in nonobese Is this a current diagnosis for this admission?: Yes (2) Diabetic foot infection Is this a current diagnosis for this admission?: Yes - Time Time Spent: 30 to 50 Minutes - Inpatient Certification Medical Necessity: Need for IV Antibiotics - Plan Summary Plan Summary: MRI changes likely due to post op changes rather than osteomyelitis. Continue IV antibiotics Will put back on Wound Vac and discharge on wound vac with at least 2 weeks of IV antibiotics Follow up at the wound care center.
[2019-04-13] MEDS: OXYCODONE-ACETAMINOPHEN 5-325 MG TABLET PO PRN ×3 (13:05→21:31)
--- NOTE | 2019-04-13 18:02 | PDOC PROGRESS REPORT ---
Subjective Progress Note for:: 04/13/19 Subjective:: The patient is a 49-year-old male with a past medical history of insulin- dependent diabetes mellitus, hypertension, hyperlipidemia, Bipolar, depression who had a recent amputation of the right great toe secondary to osteomyelitis. Patient was admitted 04/12/2019 for diabetic foot infection and PERLA. The patient was seen on morning rounds. He was found resting in bed comfortably on room air. He reports slight pain, requests to have the frequency of his pain medication adjusted. Otherwise he reports that he is feeling somewhat better this morning. His primary concern is ensuring that his wound VAC and any recommended IV antibiotics are fully arranged prior to discharge as there was a delay with receiving his IV antibiotic from the [facility] resulting in a 4-day lack of antibiotic coverage. Patient reports that yesterday he began to feel malaise, fatigue, and shortness of breath followed by development of high-grade fever which prompted him to be evaluated in the emergency department. He currently denies fever, chills, headache, dizziness, chest pain, palpit ations, dyspnea, abdominal pain, nausea vomiting and diarrhea. He has no other questions or concerns at this time. No concerns per nursing. Reason For Visit: FOOT CELLULITIS,PERLA Physical Exam Vital Signs: Temp Pulse Resp BP Pulse Ox 98.5 F 74 15 126/65 H 92 04/13/19 12:19 04/13/19 12:19 04/13/19 03:36 04/13/19 12:19 04/13/19 12:19 Intake & Output 04/12/19 04/13/19 04/14/19 06:59 06:59 06:59 Intake Total 1390 2018 Output Total 800 Balance 1390 1218 Weight 94.2 kg General appearance: PRESENT: no acute distress, cooperative, well-developed, well-nourished Head exam: PRESENT: atraumatic, normocephalic Eye exam: PRESENT: conjunctiva pink, EOMI, PERRLA. ABSENT: scleral icterus Ear exam: PRESENT: normal external ear exam Mouth exam: PRESENT: moist, tongue midline Neck exam: ABSENT: carotid bruit, JVD, lymphadenopathy, thyromegaly Respiratory exam: PRESENT: clear to auscultation rian, symmetrical - Overweight, unlabored. ABSENT: rales, rhonchi, wheezes Cardiovascular exam: PRESENT: RRR. ABSENT: diastolic murmur, rubs, systolic murmur Pulses: PRESENT: normal dorsalis pedis pul Vascular exam: PRESENT: normal capillary refill GI/Abdominal exam: PRESENT: normal bowel sounds, soft. ABSENT: distended, guarding, mass, organolmegaly, rebound, tenderness Rectal exam: PRESENT: deferred Extremities exam: PRESENT: full ROM. ABSENT: calf tenderness, clubbing, pedal edema Neurological exam: PRESENT: alert, awake, oriented to person, oriented to place, oriented to time, oriented to situation, CN II-XII grossly intact. ABSENT: motor sensory deficit Psychiatric exam: PRESENT: appropriate affect, normal mood. ABSENT: homicidal ideation, suicidal ideation Skin exam: PRESENT: dry, warm, other - Wound VAC to right foot. ABSENT: cyanosis, rash Results Laboratory Results: 04/13/19 05:50 04/13/19 05:50 04/12/19 04/12/19 04/13/19 15:50 18:19 05:50 WBC 8.3 17.7 H D RBC 3.25 L 3.04 L Hgb 8.2 L 7.5 L Hct 25.2 L 23.7 L MCV 78 L 78 L MCH 25.2 L 24.8 L MCHC 32.5 31.8 L RDW 15.6 H 15.6 H Plt Count 449 445 Sodium Potassium Chloride Carbon Dioxide Anion Gap BUN Creatinine Est GFR ( Amer) Est GFR (Non-Af Amer) Glucose Calcium Urine Color YELLOW Urine Appearance CLEAR Urine pH 6.0 Ur Specific Bentley 1.009 Urine Protein >=500 H Urine Glucose (UA) 50 H Urine Ketones NEGATIVE Urine Blood SMALL H Urine Nitrite NEGATIVE Ur Leukocyte Esterase NEGATIVE Urine WBC (Auto) 2 Urine RBC (Auto) 2 04/13/19 05:50 WBC RBC Hgb Hct MCV MCH MCHC RDW Plt Count Sodium 138.4 Potassium 3.5 L Chloride 103 Carbon Dioxide 26 Anion Gap 9 BUN 22 H Creatinine 1.71 H Est GFR ( Amer) 52 L Est GFR (Non-Af Amer) 43 L Glucose 164 H Calcium 7.8 L Urine Color Urine Appearance Urine pH Ur Specific Bentley Urine Protein Urine Glucose (UA) Urine Ketones Urine Blood Urine Nitrite Ur Leukocyte Esterase Urine WBC (Auto) Urine RBC (Auto) Impressions: Lower Extremity MRI 04/12/19 00:00 IMPRESSION: 1. Status post amputation of the first digit with overlying postsurgical changes. Mildly abnormal bone marrow signal in the first metatarsal base which is likely postsurgical, although early osteomyelitis may have a similar appearance. 2. Mildly displaced fractures of the second and third metatarsals. Foot X-Ray 04/12/19 19:54 IMPRESSION: Considerable soft tissue swelling. No definite radiographic evidence of osteomyelitis. copyright 2010 [employer]- All Rights Reserved Assessment and Plan - Diagnosis (1) Diabetic foot infection Is this a current diagnosis for this admission?: Yes Plan: MRI is concerning for postoperative changes versus osteomyelitis. Therefore, surgery was consulted. Appreciate Dr. Carrasco's evaluation recom mendations. Continue wound care per surgery's recommendations; currently plan to discharge with wound VAC. Due to the patient's renal function, patient is placed on Rocephin 2 g once daily per Dr. Foster's recommendations from his prior admission. Will adjust antibiotics as blood cultures result (gram-negative rods) Consider obtaining updated infectious disease recommendation. (2) Acute kidney injury superimposed on chronic kidney disease Is this a current diagnosis for this admission?: Yes Plan: Slight improvement today; Cr 1.82-> 1.71 Patient reports that he has recently had decreased renal function prompting Dr. Velasquez polanco to discontinue his vancomycin as outpatient. We will continue gentle IV fluids. Avoid nephrotoxic medications as able. Daily chemistries. (3) Diabetes mellitus type 2 in nonobese Is this a current diagnosis for this admission?: Yes Plan: Consistent carb diet. Accu-Cheks before meals and at bedtime. We will continue his home medications plus a sliding scale (4) Hypertension Qualifiers: Hypertension type: essential hypertension Qualified Code(s): I10 - Esse ntial (primary) hypertension Is this a current diagnosis for this admission?: Yes Plan: Acceptable blood pressures today. Continue home dose amlodipine. (5) Bacteremia Is this a current diagnosis for this admission?: Yes Plan: Blood cultures (3 of 4 bottles) revealed gram-negative rods. We will repeat blood cultures. Continue Rocephin 2 g daily. May need to consider removing current PICC line. Consider infectious disease consultation. - Time Time Spent with patient: 25-34 minutes Medications reviewed and adjusted accordingly: Yes Anticipated discharge: Home Within: Other - pending blood culture results. - Inpatient Certification Based on my medical assessment, after consideration of the patient's comorbidities, presenting symptoms, or acuity I expect that the services needed warrant INPATIENT care.: Yes I certify that my determination is in accordance with my understanding of Medicare's requirements for reasonable and necessary INPATIENT services [42 CFR 412.3e].: Yes Medical Necessity: Need For IV Fluids, Need for IV Antibiotics, Risk of Diagnosis Which Will Require Inpatient Eval/Care/Monitoring
--- NOTE | 2019-04-13 18:03 | Progress Note Acknowledgement ---
Progress Note Acknowledgement Progess Note Acknowledgement: I, the undersigned member of the medical staff with appropriate privileges and with supervisory authority over Beverly Landrum, a [facility] practice allied health professional, acknowledge that I have reviewed the progress notes entered on this patient, and in my professional judgment believe that the assessment made and/or any care evidenced was appropriate
[2019-04-14] MEDS: OXYCODONE-ACETAMINOPHEN 5-325 MG TABLET PO PRN ×4 (04:48→22:27)
[2019-04-14] MEDS: PANTOPRAZOLE SODIUM 20 MG TABLET.DR PO SCH ×2 (06:00→17:31)
[2019-04-14] MEDS: HEPARIN SOD (PORCINE) 5,000 UNIT/ML 1 ML VIAL SUBCUT SCH ×3 (06:00→22:21)
[2019-04-14 06:29] LABS: HEMOGLOBIN 8.4 g/dL (13.5-17.0); MEAN CORPUSCULAR HEMOGLOBIN 25.3 pg (27.0-33.4); MEAN CORPUSCULAR HGB CONC 32.1 g/dL (32.0-36.0); MEAN CORPUSCULAR VOLUME 79 fl (80-97); PLATELET COUNT 487 10^3/uL (150-450); RED CELL DISTRIBUTION WIDTH 15.4 % (11.5-14.0); WHITE BLOOD COUNT 14.9 10^3/uL (4.0-10.5)
[2019-04-14 06:49] LABS: ANION GAP 9 (5-19); BLOOD UREA NITROGEN 14 mg/dL (7-20); CALCIUM 8.4 mg/dL (8.4-10.2); CARBON DIOXIDE 26 mmol/L (22-30); CHLORIDE 107 mmol/L (98-107); POTASSIUM 3.8 mmol/L (3.6-5.0)
[2019-04-14 06:57] LABS: GLUCOSE 60 mg/dL (75-110)
[2019-04-14] MEDS: INSULIN LISPRO 100 UNIT/ML 3 ML VIAL SUBCUT SCH ×7 (07:00→22:20)
[2019-04-14] MEDS: AMLODIPINE BESYLATE 10 MG TABLET PO SCH (09:44)
[2019-04-14] MEDS: CEFTRIAXONE 2 GM/D5W RTU 2 GM/50 ML RTUPB IV SCH (09:46)
[2019-04-14] MEDS ORDERED: AMLODIPINE BESYLATE 5 MG TABLET PO SCH (10:00)
--- NOTE | 2019-04-14 10:32 | EKG REPORT ---
SEVERITY:- OTHERWISE NORMAL ECG - SINUS TACHYCARDIA : Confirmed by: Nuha Lobo 14-Apr-2019 10:31:07
--- NOTE | 2019-04-14 12:14 | PDOC PROGRESS REPORT ---
Subjective Progress Note for:: 04/14/19 Subjective:: no pains Reason For Visit: FOOT CELLULITIS,PERLA Physical Exam Vital Signs: Temp Pulse Resp BP Pulse Ox 98.4 F 84 15 175/86 H 96 04/14/19 07:37 04/14/19 07:37 04/14/19 07:37 04/14/19 07:37 04/14/19 07:37 Intake & Output 04/13/19 04/14/19 04/15/19 06:59 06:59 06:59 Intake Total 1390 3458 Output Total 3325 Balance 1390 133 Weight 94.2 kg 101.9 kg Exam: wound vac in place. Cellulitis around 1st toe amputation site appears to be subsiding Results Laboratory Results: 04/14/19 06:15 04/14/19 06:15 04/14/19 04/14/19 06:15 06:15 WBC 14.9 H RBC 3.30 L Hgb 8.4 L Hct 26.0 L MCV 79 L MCH 25.3 L MCHC 32.1 RDW 15.4 H Plt Count 487 H Sodium 141.6 Potassium 3.8 Chloride 107 Carbon Dioxide 26 Anion Gap 9 BUN 14 Creatinine 1.42 H Est GFR ( Amer) > 60 Est GFR (Non-Af Amer) 53 L Glucose 60 L Calcium 8.4 04/12/19 18:19 Clean Catch Midstream Urine Culture - Final NO GROWTH 2 DAYS Impressions: Lower Extremity MRI 04/12/19 00:00 IMPRESSION: 1. Status post amputation of the first digit with overlying postsurgical changes. Mildly abnormal bone marrow signal in the first metatarsal base which is likely postsurgical, although early osteomyelitis may have a similar appearance. 2. Mildly displaced fractures of the second and third metatarsals. Foot X-Ray 04/12/19 19:54 IMPRESSION: Considerable soft tissue swelling. No definite radiographic evidence of osteomyelitis. copyright 2011 [employer]- All Rights Reserved Assessment & Plan - Diagnosis (1) Diabetes mellitus type 2 in nonobese Is this a current diagnosis for this admission?: Yes (2) Diabetic foot infection Is this a current diagnosis for this admission?: Yes - Time Time Spent with patient: 15-24 minutes - Inpatient Certification Medical Necessity: Need for IV Antibiotics - Plan Summary Plan Summary: Will need to have wound vac for about 8 weeks and follow up at the surgical clinic Continue IV antibiotics about 72 hrs then continue po antibiotics next 2 weeks Will follow prn. Call for questions
[2019-04-14] MEDS ORDERED: NORMAL SALINE 1000 ML 1,000 ML IV PRN (13:02)
[2019-04-14] MEDS ORDERED: MAGNESIUM HYDROXIDE SUSP 30 ML UDCUP PO PRN (16:01)
--- NOTE | 2019-04-14 16:03 | PDOC PROGRESS REPORT ---
Subjective Progress Note for:: 04/14/19 Subjective:: The patient is a 49-year-old male with a past medical history of insulin- dependent diabetes mellitus, hypertension, hyperlipidemia, Bipolar, depression who had a recent amputation of the right great toe secondary to osteomyelitis. Patient was admitted 04/12/2019 for diabetic foot infection and PERLA. The patient was seen on morning rounds. He was found resting in bed comfortably on room air. He reports continued RLE pain, requests to have the frequency/dose of his pain medication adjusted. Otherwise, he denies fever, chills, headache, dizziness, chest pain, p alpitations, dyspnea, abdominal pain, nausea vomiting and diarrhea. He has no other questions or concerns at this time. No concerns per nursing. Reason For Visit: FOOT CELLULITIS,PERLA Physical Exam Vital Signs: Temp Pulse Resp BP Pulse Ox 98.4 F 75 15 160/89 H 97 04/14/19 12:15 04/14/19 12:15 04/14/19 07:37 04/14/19 12:15 04/14/19 12:15 Intake & Output 04/13/19 04/14/19 04/15/19 06:59 06:59 06:59 Intake Total 1390 3458 Output Total 3325 Balance 1390 133 Weight 94.2 kg 101.9 kg General appearance: PRESENT: no acute distress, cooperative, well-developed, well-nourished - overweight Head exam: PRESENT: atraumatic, normocephalic Eye exam: PRESENT: conjunctiva pink, EOMI, PERRLA. ABSENT: scleral icterus Ear exam: PRESENT: normal external ear exam Mouth exam: PRESENT: moist, tongue midline Neck exam: ABSENT: carotid bruit, JVD, lymphadenopathy, thyromegaly Respiratory exam: PRESENT: clear to auscultation rian, symmetrical, unlabored. ABSENT: rales, rhonchi, wheezes Cardiovascular exam: PRESENT: RRR, +S1, +S2. ABSENT: diastolic murmur, rubs, systolic murmur Pulses: PRESENT: normal dorsalis pedis pul Vascular exam: PRESENT: normal capillary refill GI/Abdominal exam: PRESENT: normal bowel sounds, soft. ABSENT: distended, guarding, mass, organolmegaly, rebound, tenderness Rectal exam: PRESENT: deferred Extremities exam: PRESENT: full ROM. ABSENT: calf tenderness, clubbing, pedal edema Neurological exam: PRESENT: alert, awake, oriented to person, oriented to place, oriented to time, oriented to situation, CN II-XII grossly intact. ABSENT: motor sensory deficit Psychiatric exam: PRESENT: appropriate affect, normal mood. ABSENT: homicidal ideation, suicidal ideation Skin exam: PRESENT: dry, warm, other - wound vac to Rt foot, slight pedal edema noted. ABSENT: cyanosis, rash Results Laboratory Results: 04/14/19 06:15 04/14/19 06:15 04/14/19 04/14/19 06:15 06:15 WBC 14.9 H RBC 3.30 L Hgb 8.4 L Hct 26.0 L MCV 79 L MCH 25.3 L MCHC 32.1 RDW 15.4 H Plt Count 487 H Sodium 141.6 Potassium 3.8 Chloride 107 Carbon Dioxide 26 Anion Gap 9 BUN 14 Creatinine 1.42 H Est GFR ( Amer) > 60 Est GFR (Non-Af Amer) 53 L Glucose 60 L Calcium 8.4 04/12/19 18:19 Clean Catch Midstream Urine Culture - Final NO GROWTH 2 DAYS Impressions: Lower Extremity MRI 04/12/19 00:00 IMPRESSION: 1. Status post amputation of the first digit with overlying postsurgical changes. Mildly abnormal bone marrow signal in the first metatarsal base which is likely postsurgical, although early osteomyelitis may have a similar appearance. 2. Mildly displaced fractures of the second and third metatarsals. Foot X-Ray 04/12/19 19:54 IMPRESSION: Considerable soft tissue swelling. No definite radiographic evidence of osteomyelitis. copyright 2010 [employer]- All Rights Reserved Assessment and Plan - Diagnosis (1) Diabetic foot infection Is this a current diagnosis for this admission?: Yes Plan: MRI is concerning for postoperative changes versus osteomyelitis. Surgery is consulted. Appreciate Dr. Carrasco's evaluation/recommendations. Continue wound care per surgery's recommendations; currently plan to discharge with wound VAC. Due to the patient's renal function, patient is placed on Rocephin 2 g once daily per Dr. Foster's recommendations from his prior admission. Will adjust antibiotics as blood cultures result (gram-negative rods) Consider obtaining updated infectious disease recommendation following BCx results. Analgesics as needed (2) Acute kidney injury superimposed on chronic kidney disease Is this a current diagnosis for this admission?: Yes Plan: Improved; Cr 1.82-> 1.71-> 1.42 Patient reports that he has recently had decreased renal function prompting Dr. Velasquez polanco to discontinue his vancomycin as outpatient. We will continue gentle IV fluids. Avoid nephrotoxic medications as able. Daily chemistries. (3) Diabetes mellitus type 2 in nonobese Is this a current diagnosis for this admission?: Yes Plan: Consistent carb diet. Accu-Cheks before meals and at bedtime. We will continue his home medications plus a sliding scale Hypoglycemia this am; will decreased long acting insulin by 20%. Hypoglycemia protocol in place. (4) Hypertension Qualifiers: Hypertension type: essential hypertension Qualified Code(s): I10 - Essential (primary) hypertension Is this a current diagnosis for this admission?: Yes Plan: Elevated blood pressures today; 175/86 Increase amlodipine to 10 mg qHS (5) Bacteremia Is this a current diagnosis for this admission?: Yes Plan: Blood cultures (3 of 4 bottles) revealed two strains of gram-negative rods. Repeat blood cultures obtained following 2 days of IV Rocephin. Continue Rocephin 2 g daily. May need to consider removing current PICC line. Consider infectious disease consultation. (6) Constipation Is this a current diagnosis for this admission?: Yes Plan: Colace twice daily. Milk of Mag daily prn. (7) Phantom limb pain Is this a current diagnosis for this admission?: Yes Plan: Phantom limb pain overnight. Reports intolerance to gabapentin. Declined Topamax and Elavil. - Time Time Spent with patient: 25-34 minutes Medications reviewed and adjusted accordingly: Yes Anticipated discharge: Home with Homehealth
[2019-04-14] MEDS ORDERED: INSULIN GLARGINE,HUM.REC.ANLOG 1,000 UNIT/10 ML VIAL SUBCUT SCH (17:00)
[2019-04-14] MEDS: DOCUSATE SODIUM 100 MG CAPSULE PO SCH (17:31)
[2019-04-15] MEDS: OXYCODONE-ACETAMINOPHEN 5-325 MG TABLET PO PRN ×4 (06:12→22:48)
[2019-04-15] MEDS: HEPARIN SOD (PORCINE) 5,000 UNIT/ML 1 ML VIAL SUBCUT SCH ×3 (06:13→22:46)
[2019-04-15] MEDS: PANTOPRAZOLE SODIUM 20 MG TABLET.DR PO SCH ×2 (06:13→17:10)
[2019-04-15] MEDS ORDERED: INSULIN GLARGINE,HUM.REC.ANLOG 1,000 UNIT/10 ML VIAL (PYX) SUBCUT PRN (07:19)
[2019-04-15 07:47] LABS: ANION GAP 9 (5-19); BLOOD UREA NITROGEN 10 mg/dL (7-20); CALCIUM 8.9 mg/dL (8.4-10.2); CARBON DIOXIDE 28 mmol/L (22-30); CHLORIDE 105 mmol/L (98-107); GLUCOSE 107 mg/dL (75-110); HEMATOCRIT 27.1 % (37.9-51.0); HEMOGLOBIN 8.8 g/dL (13.5-17.0); MEAN CORPUSCULAR HEMOGLOBIN 25.1 pg (27.0-33.4); MEAN CORPUSCULAR HGB CONC 32.4 g/dL (32.0-36.0); MEAN CORPUSCULAR VOLUME 77 fl (80-97); POTASSIUM 3.7 mmol/L (3.6-5.0); RED CELL DISTRIBUTION WIDTH 15.7 % (11.5-14.0); WHITE BLOOD COUNT 14.2 10^3/uL (4.0-10.5)
[2019-04-15] MEDS ORDERED: INSULIN GLARGINE,HUM.REC.ANLOG 1,000 UNIT/10 ML VIAL SUBCUT SCH (08:00)
[2019-04-15 08:07] LABS: PLATELET COUNT 378 10^3/uL (150-450)
[2019-04-15] MEDS: INSULIN GLARGINE,HUM.REC.ANLOG 1,000 UNIT/10 ML VIAL SUBCUT SCH ×2 (09:00→17:03)
[2019-04-15] MEDS: DOCUSATE SODIUM 100 MG CAPSULE PO SCH ×2 (10:44→17:10)
[2019-04-15] MEDS: CARVEDILOL 6.25 MG TABLET PO SCH ×2 (10:45→22:45)
[2019-04-15] MEDS: AMLODIPINE BESYLATE 10 MG TABLET PO SCH (10:45)
[2019-04-15] MEDS: INSULIN LISPRO 100 UNIT/ML 3 ML VIAL SUBCUT SCH ×7 (10:46→22:46)
[2019-04-15] MEDS: CEFTRIAXONE 2 GM/D5W RTU 2 GM/50 ML RTUPB IV SCH (10:52)
--- NOTE | 2019-04-15 15:09 | PDOC PROGRESS REPORT ---
Subjective Progress Note for:: 04/15/19 Subjective:: The patient is a 49-year-old male with a past medical history of insulin- dependent diabetes mellitus, hypertension, hyperlipidemia, Bipolar, depression who had a recent amputation of the right great toe secondary to osteomyelitis. Patient was admitted 04/12/2019 for diabetic foot infection and PERLA. The patient was seen on morning rounds. He was found resting in bed comfortably on room air. He reports continued RLE pain, improved pain control today. Had hypoglycemia again this morning. Otherwise, he denies fever, chills, headache, dizziness, chest pain, palpi tations, dyspnea, abdominal pain, nausea vomiting and diarrhea. Reviewed recent culture results and recommendations to remove PICC line; patient is agreeable. He has no other questions or concerns at this time. No concerns per nursing. Reason For Visit: FOOT CELLULITIS,PERLA Physical Exam Vital Signs: Temp Pulse Resp BP Pulse Ox 98.5 F 76 16 146/81 H 94 04/15/19 11:29 04/15/19 11:29 04/15/19 11:29 04/15/19 11:29 04/15/19 11:29 Intake & Output 04/14/19 04/15/19 04/16/19 06:59 06:59 06:59 Intake Total 3458 4568 4008 Output Total 3325 6800 1600 Balance 133 -2232 2408 Weight 101.9 kg 99.6 kg General appearance: PRESENT: no acute distress, cooperative, well-developed, well-nourished - overweight Head exam: PRESENT: atraumatic, normocephalic Eye exam: PRESENT: conjunctiva pink, EOMI, PERRLA. ABSENT: scleral icterus Ear exam: PRESENT: normal external ear exam Mouth exam: PRESENT: moist, tongue midline Neck exam: ABSENT: carotid bruit, JVD, lymphadenopathy, thyromegaly Respiratory exam: PRESENT: clear to auscultation rian, symmetrical, unlabored. ABSENT: rales, rhonchi, wheezes Cardiovascular exam: PRESENT: RRR, +S1, +S2. ABSENT: diastolic murmur, rubs, systolic murmur Pulses: PRESENT: normal dorsalis pedis pul Vascular exam: PRESENT: normal capillary refill GI/Abdominal exam: PRESENT: normal bowel sounds, soft. ABSENT: distended, guarding, mass, organolmegaly, rebound, tenderness Rectal exam: PRESENT: deferred Extremities exam: PRESENT: full ROM. ABSENT: calf tenderness, clubbing, pedal edema Neurological exam: PRESENT: alert, awake, oriented to person, oriented to place, oriented to time, oriented to situation, CN II-XII grossly intact. ABSENT: motor sensory deficit Psychiatric exam: PRESENT: appropriate affect, normal mood. ABSENT: homicidal ideation, suicidal ideation Skin exam: PRESENT: dry, warm, other - Rt great toe amputation; slight pedal edema.. ABSENT: cyanosis, rash Results Laboratory Results: 04/15/19 07:15 04/15/19 07:15 04/15/19 04/15/19 07:15 07:15 WBC 14.2 H RBC 3.50 L Hgb 8.8 L Hct 27.1 L MCV 77 L MCH 25.1 L MCHC 32.4 RDW 15.7 H Plt Count 378 Sodium 142.1 Potassium 3.7 Chloride 105 Carbon Dioxide 28 Anion Gap 9 BUN 10 Creatinine 1.19 Est GFR ( Amer) > 60 Est GFR (Non-Af Amer) > 60 Glucose 107 Calcium 8.9 Impressions: Lower Extremity MRI 04/12/19 00:00 IMPRESSION: 1. Status post amputation of the first digit with overlying postsurgical changes. Mildly abnormal bone marrow signal in the first metatarsal base which is likely postsurgical, although early osteomyelitis may have a similar appearance. 2. Mildly displaced fractures of the second and third metatarsals. Foot X-Ray 04/12/19 19:54 IMPRESSION: Considerable soft tissue swelling. No definite radiographic evidence of osteomyelitis. copyright 2010 [employer]- All Rights Reserved Assessment and Plan - Diagnosis (1) Diabetic foot infection Is this a current diagnosis for this admission?: Yes Plan: MRI is concerning for postoperative changes versus osteomyelitis. Surgery is consulted. Appreciate Dr. Carrasco's evaluation/recommendations. Continue wound care per surgery's recommendations; currently plan to discharge with wound VAC. Due to the patient's renal function, patient is placed on Rocephin 2 g once daily per Dr. Foster's recommendations from his prior admission. Will adjust antibiotics as blood cultures result (gram-negative rods) Consider obtaining updated infectious disease recommendation following BCx results. Analgesics as needed (2) Acute kidney injury superimposed on chronic kidney disease Is this a current diagnosis for this admission?: Yes Plan: Resolved; Cr 1.82-> 1.71-> 1.42-> 1.19 Avoid nephrotoxic medications as able. Daily chemistries. (3) Diabetes mellitus type 2 in nonobese Is this a current diagnosis for this admission?: Yes Plan: Consistent carb diet. Accu-Cheks before meals and at bedtime. We will continue his home medications plus a sliding scale Hypoglycemia again this am; will decrease long acting insulin to 20% of his home dose. Hypoglycemia protocol in place. (4) Hypertension Qualifiers: Hypertension type: essential hypertension Qualified Code(s): I10 - Essential (primary) hypertension Is this a current diagnosis for this admission?: Yes Plan: Continues to have elevated blood pressures. Continue amlodipine 10 mg qHS Start Coreg 6.25 mg BID (5) Bacteremia Is this a current diagnosis for this admission?: Yes Plan: Blood cultures (3 of 4 bottles) revealed two strains of gram-negative rods. Repeat blood cultures (1 bottle each set) growing gram negative rods. Discontinue PICC and culture tip. Repeat blood cultures until clear; new PICC once negative at 72 hrs. Continue Rocephin 2 g daily. Consider infectious disease consultation. (6) Constipation Is this a current diagnosis for this admission?: Yes Plan: Resolved. Colace twice daily. Milk of Mag daily prn. (7) Phantom limb pain Is this a current diagnosis for this admission?: Yes Plan: Phantom limb pain at night. Reports intolerance to gabapentin. Declined Topamax and Elavil. - Time Time Spent with patient: 25-34 minutes Medications reviewed and adjusted accordingly: Yes Anticipated discharge: Home with Homehealth Within: Other - D/C to home on Wound Vac w/ home health nursing for wound care and IV antibiotics via PICC. D/C >72 hrs (need clean blood cultures and new PICC insertion)
[2019-04-16] MEDS: HEPARIN SOD (PORCINE) 5,000 UNIT/ML 1 ML VIAL SUBCUT SCH ×3 (06:17→21:24)
[2019-04-16] MEDS: OXYCODONE-ACETAMINOPHEN 5-325 MG TABLET PO PRN ×4 (06:20→21:23)
[2019-04-16] MEDS: PANTOPRAZOLE SODIUM 20 MG TABLET.DR PO SCH ×2 (06:20→16:53)
[2019-04-16] MEDS: INSULIN LISPRO 100 UNIT/ML 3 ML VIAL SUBCUT SCH ×7 (08:37→21:29)
[2019-04-16] MEDS: INSULIN GLARGINE,HUM.REC.ANLOG 1,000 UNIT/10 ML VIAL SUBCUT SCH ×2 (08:38→18:12)
[2019-04-16] MEDS: CARVEDILOL 6.25 MG TABLET PO SCH ×2 (09:31→21:24)
[2019-04-16] MEDS: AMLODIPINE BESYLATE 10 MG TABLET PO SCH (09:31)
[2019-04-16] MEDS: CEFTRIAXONE 2 GM/D5W RTU 2 GM/50 ML RTUPB IV SCH (09:31)
[2019-04-16] MEDS: DOCUSATE SODIUM 100 MG CAPSULE PO SCH ×2 (09:31→17:10)
--- NOTE | 2019-04-16 15:51 | PDOC PROGRESS REPORT ---
Subjective Progress Note for:: 04/16/19 Subjective:: The patient is a 49-year-old male with a past medical history of insulin- dependent diabetes mellitus, hypertension, hyperlipidemia, Bipolar, depression who had a recent amputation of the right great toe secondary to osteomyelitis. Patient was admitted 04/12/2019 for diabetic foot infection and PERLA. The patient was seen on morning rounds. He was found resting in bed comfortably on room air. He reports continued RLE pain, though improved. He denies fever, chills, headache, dizziness, chest pain, palpitations, dyspnea, abdominal pain, nausea vomiting and diarrhea. Reviewed plan with patient; will obtain ID consultation today for antibiotic recommendations, repeat blood culture tomorrow with possible PICC line placement (if blood cultures are negative) and discharge home on Tuesday. No concerns per nursing. Reason For Visit: FOOT CELLULITIS,PERLA Physical Exam Vital Signs: Temp Pulse Resp BP Pulse Ox 98.4 F 85 16 135/75 H 98 04/16/19 11:44 04/16/19 15:00 04/16/19 11:44 04/16/19 11:44 04/16/19 11:44 Intake & Output 04/15/19 04/16/19 04/17/19 06:59 06:59 06:59 Intake Total 4568 4008 650 Output Total 6800 3460 500 Balance -2232 548 150 Weight 99.6 kg 98.8 kg General appearance: PRESENT: no acute distress, cooperative, well-developed, well-nourished - Overweight Head exam: PRESENT: atraumatic, normocephalic Eye exam: PRESENT: conjunctiva pink, EOMI, PERRLA. ABSENT: scleral icterus Ear exam: PRESENT: normal external ear exam Mouth exam: PRESENT: moist, tongue midline Neck exam: ABSENT: carotid bruit, JVD, lymphadenopathy, thyromegaly Respiratory exam: PRESENT: clear to auscultation rian, symmetrical, unlabored. ABSENT: rales, rhonchi, wheezes Cardiovascular exam: PRESENT: RRR, +S1, +S2. ABSENT: diastolic murmur, rubs, systolic murmur Pulses: PRESENT: normal dorsalis pedis pul Vascular exam: PRESENT: normal capillary refill GI/Abdominal exam: PRESENT: normal bowel sounds, soft. ABSENT: distended, guarding, mass, organolmegaly, rebound, tenderness Rectal exam: PRESENT: deferred Extremities exam: PRESENT: full ROM. ABSENT: calf tenderness, clubbing, pedal edema Neurological exam: PRESENT: alert, awake, oriented to person, oriented to place, oriented to time, oriented to situation, CN II-XII grossly intact. ABSENT: motor sensory deficit Psychiatric exam: PRESENT: appropriate affect, normal mood. ABSENT: homicidal ideation, suicidal ideation Skin exam: PRESENT: dry, warm, other - Wound VAC to right foot. ABSENT: cyanosis, rash Results Laboratory Results: 04/15/19 07:15 04/15/19 07:15 04/12/19 15:50 Blood Blood Culture - Final Acinetobacter Baumannii/Haem Corynebacterium Species 04/12/19 17:56 Blood Blood Culture - Final Klebsiella Oxytoca Acinetobacter Baumannii/Haem Impressions: Lower Extremity MRI 04/12/19 00:00 IMPRESSION: 1. Status post amputation of the first digit with overlying postsurgical changes. Mildly abnormal bone marrow signal in the first metatarsal base which is likely postsurgical, although early osteomyelitis may have a similar appearance. 2. Mildly displaced fractures of the second and third metatarsals. Foot X-Ray 04/12/19 19:54 IMPRESSION: Considerable soft tissue swelling. No definite radiographic evidence of osteomyelitis. copyright 2011 [employer]- All Rights Reserved Assessment and Plan - Diagnosis (1) Bacteremia Is this a current diagnosis for this admission?: Yes Plan: Blood cultures (04/12/19; 3 of 4 bottles) revealed corynebacterium, acinetobacter, and klebsiella; all sensitive to Rocephin. Repeat blood cultures (04/14/19; 1 bottle each set) growing gram negative rods. Will repeat Blood cultures in the morning. PICC line culture is negative at 1 day Repeat blood cultures until clear; new PICC once negative at 72 hrs. Continue Rocephin 2 g daily. Infectious disease consultation; appreciate Dr. Foster's assistance. (2) Diabetic foot infection Is this a current diagnosis for this admission?: Yes Plan: MRI is concerning for postoperative changes versus osteomyelitis. Surgery is consulted. Appreciate Dr. Carrasco's evaluation/recommendations. Continue wound care per surgery's recommendations; currently plan to discharge with wound VAC. Due to the patient's renal function, patient is placed on Rocephin 2 g once daily per Dr. Foster's recommendations from his prior admission. Infectious disease consulted; appreciate Dr. Foster's recommendations. Analgesics as needed (3) Diabetes mellitus type 2 in nonobese Is this a current diagnosis for this admission?: Yes Plan: Consistent carb diet. Accu-Cheks before meals and at bedtime. We will continue his home medications plus a sliding scale Continue long acting insulin at 20% of his home dose (related to multiple episodes of fasting hypoglycemia) Hypoglycemia protocol in place. (4) Hypertension Qualifiers: Hypertension type: essential hypertension Qualified Code(s): I10 - Essential (primary) hypertension Is this a current diagnosis for this admission?: Yes Plan: Improved blood pressures today. Continue amlodipine 10 mg qHS Have added Coreg 6.25 mg BID (5) Phantom limb pain Is this a current diagnosis for this admission?: Yes Plan: Phantom limb pain at night. Reports intolerance to gabapentin. Declined Topamax and Elavil. (6) Constipation Is this a current diagnosis for this admission?: Yes Plan: Resolved. Colace twice daily. Milk of Mag daily prn. (7) Acute kidney injury superimposed on chronic kidney disease Is this a current diagnosis for this admission?: Yes Plan: Resolved; Cr 1.82-> 1.71-> 1.42-> 1.19 Avoid nephrotoxic medications as able. Daily chemistries. - Time Time Spent with patient: 25-34 minutes Medications reviewed and adjusted accordingly: Yes Anticipated discharge: Home with Homehealth
--- NOTE | 2019-04-16 16:48 | Progress Note ---
Provider Note Provider Note: ID Consult Note Asked to review patient's chart. Pt not seen or examined. Reviewed VS, lab results, provider notes. Mr. Larsen is a 49 year old man with history of recent diabetic foot infection with gangrene and osteomyelitis s/p 1st toe ray resection and diabetic neuropathy. He presented to the ED on 04/12/19 feeling unwell overall and having fever up to 102 F. The patient's right foot had some edema but amputation site was described as relatively clean appearing by Surgery. His labs included leukocytosis and evidence of PERLA on CKD. Blood cultures grew Acinetobacter baumannii and Klebsiella oxytoca from one blood culture set drawn on 04/12/19 and from his line grew Corynebacterium species and Acinetobacter baumannii. Repeat blood cultures on 04/14 - again, one set peripheral and the other set drawn off of the line - are both preliminarily reported as showing GNRs. The PICC line was removed on 04/15 and tip culture has no growth x 1 day. The Klebsiella and Acinetobacter species are reported susceptible to ceftriaxone, cefotaxime, Unasyn, Cipro, Levofloxacin, and Bactrim among others. When re-examined by surgery on 04/14/19 cellulitis around 1st toe amputation site appeared to be subsiding. Impression/Recommendations The polymicrobial GNR bacteremia with Acinetobacter baumannii is most likely due to a PICC line related bloodstream infection. The line and peripheral blood cultures grew the same Acinetobacter, and repeat blood cultures from 04/14 while PICC was still in place, show preliminarily growth of a Gram negative talib (pending identification). The cultures from the 1st toe amputated on 03/17 never grew Acinetobacter baumannii and per examination by Surgery the toe amputation site does not look acutely infected. Can continue Rocephin 2 grams IV daily as an inpatient, then transition to PO Cipro 750 mg BID as an outpatient to avoid having to place another PICC line. Would plan to treat for 14 days after line removal. Last day of Cipro on 04/29. Recommend counseling patient on need to avoid taking multivalent cation containing products (such as supplements of calcium, iron, zinc, magnesium, multivitamin, Tums, Maalox, or Mylanta) at the same time as Cipro to avoid chelating the fluoroquinolone. Toño Foster MD [facility] Infectious Diseases pager [phone]
[2019-04-17] MEDS: OXYCODONE-ACETAMINOPHEN 5-325 MG TABLET PO PRN ×4 (04:10→21:33)
[2019-04-17 04:45] LABS: HEMATOCRIT 29.2 % (37.9-51.0); HEMOGLOBIN 9.5 g/dL (13.5-17.0); MEAN CORPUSCULAR HGB CONC 32.4 g/dL (32.0-36.0); MEAN CORPUSCULAR VOLUME 77 fl (80-97); PLATELET COUNT 585 10^3/uL (150-450); RED BLOOD COUNT 3.79 10^6/uL (4.35-5.55); RED CELL DISTRIBUTION WIDTH 15.5 % (11.5-14.0); WHITE BLOOD COUNT 13.4 10^3/uL (4.0-10.5)
[2019-04-17] MEDS: PANTOPRAZOLE SODIUM 20 MG TABLET.DR PO SCH ×2 (06:04→17:07)
[2019-04-17] MEDS: HEPARIN SOD (PORCINE) 5,000 UNIT/ML 1 ML VIAL SUBCUT SCH ×3 (06:04→21:33)
[2019-04-17] MEDS: INSULIN LISPRO 100 UNIT/ML 3 ML VIAL SUBCUT SCH ×7 (08:35→22:44)
[2019-04-17] MEDS: INSULIN GLARGINE,HUM.REC.ANLOG 1,000 UNIT/10 ML VIAL SUBCUT SCH ×2 (08:36→17:02)
[2019-04-17] MEDS: AMLODIPINE BESYLATE 10 MG TABLET PO SCH (09:07)
[2019-04-17] MEDS: CEFTRIAXONE 2 GM/D5W RTU 2 GM/50 ML RTUPB IV SCH (09:07)
[2019-04-17] MEDS: DOCUSATE SODIUM 100 MG CAPSULE PO SCH ×2 (09:07→17:07)
[2019-04-17] MEDS: CARVEDILOL 6.25 MG TABLET PO SCH ×2 (09:07→21:34)
--- NOTE | 2019-04-17 15:22 | PDOC PROGRESS REPORT ---
Subjective Progress Note for:: 04/17/19 Subjective:: Patient reports the pain in his right leg is better. The pain mostly presents in his foot. Reason For Visit: FOOT CELLULITIS,PERLA Physical Exam Vital Signs: Temp Pulse Resp BP Pulse Ox 98.4 F 76 16 144/72 H 94 04/17/19 11:40 04/17/19 14:00 04/17/19 11:40 04/17/19 11:40 04/17/19 11:40 Intake & Output 04/16/19 04/17/19 04/18/19 06:59 06:59 06:59 Intake Total 4008 1370 1130 Output Total 3460 3200 500 Balance 548 -1830 630 Weight 98.8 kg 97.1 kg General appearance: PRESENT: no acute distress, cooperative, well-developed Head exam: PRESENT: normocephalic Eye exam: PRESENT: conjunctiva pink. ABSENT: scleral icterus Ear exam: PRESENT: normal external ear exam Respiratory exam: PRESENT: clear to auscultation rian, symmetrical, unlabored. ABSENT: accessory muscle use, rales, rhonchi, tachypnea, wheezes Cardiovascular exam: PRESENT: RRR, +S1, +S2 GI/Abdominal exam: PRESENT: normal bowel sounds, soft. ABSENT: distended, tenderness Rectal exam: PRESENT: deferred Gentrourinary exam: ABSENT: indwelling catheter Extremities exam: PRESENT: other - VAC dressing right foot at amputation site right hallux. ABSENT: pedal edema Musculoskeletal exam: PRESENT: ambulatory, normal inspection Neurological exam: PRESENT: alert, awake, oriented to person, oriented to place, oriented to time, oriented to situation, CN II-XII grossly intact Psychiatric exam: PRESENT: appropriate affect, normal mood. ABSENT: agitated, anxious Focused psych exam: ABSENT: delusional, restlessness Results Laboratory Results: 04/17/19 03:49 04/15/19 07:15 04/17/19 03:49 WBC 13.4 H RBC 3.79 L Hgb 9.5 L Hct 29.2 L MCV 77 L MCH 25.0 L MCHC 32.4 RDW 15.5 H Plt Count 585 H 04/14/19 06:15 Blood Blood Culture - Final Acinetobacter Baumannii/Haem 04/12/19 15:50 Blood Blood Culture - Final Acinetobacter Baumannii/Haem Corynebacterium Species Impressions: Lower Extremity MRI 04/12/19 00:00 IMPRESSION: 1. Status post amputation of the first digit with overlying postsurgical changes. Mildly abnormal bone marrow signal in the first metatarsal base which is likely postsurgical, although early osteomyelitis may have a similar appearance. 2. Mildly displaced fractures of the second and third metatarsals. Foot X-Ray 04/12/19 19:54 IMPRESSION: Considerable soft tissue swelling. No definite radiographic evidence of osteomyelitis. copyright 2010 [employer] All Rights Reserved Assessment and Plan - Diagnosis (1) Bacteremia Is this a current diagnosis for this admission?: Yes Plan: 04/17/2019-bacteremia is suspected from PICC line. The PICC line has been pulled. Infectious diseases suggest continuing Rocephin until the patient has negative blood cultures. Once this occurs then changed to oral antibiotic therapy. (2) Infection due to acinetobacter baumannii Is this a current diagnosis for this admission?: Yes Plan: Blood cultures are positive for Acinetobacter baumannii. Sensitivities reveal that it is pansensitive. Infectious diseases has recommended ongoing intravenous Rocephin until the patient has negative blood cultures and then change to oral ciprofloxacin. (3) Diabetic foot infection Is this a current diagnosis for this admission?: Yes Plan: 04/17/2019-the patient is status post right hallux amputation. There is a wound VAC currently in place. This was placed after debridement. The patient has been treated with a wound VAC at home. He sees Dr. Menendez in the wound care clinic and has home health the. We will resume home health. I did place orders to change the VAC 3 times a week. (4) Diabetes mellitus type 2 in nonobese Is this a current diagnosis for this admission?: Yes Plan: The patient's Lantus dose was increased yesterday. Since then all his Accu- Cheks are less than 200. We will give the current regimen another day and then consider adjusting the Lantus based on sliding scale requirements. When the patient returns home he will resume his previous regimen. (5) Hypertension Qualifiers: Hypertension type: essential hypertension Qualified Code(s): I10 - Essential (primary) hypertension Is this a current diagnosis for this admission?: Yes Plan: 04/17/2019-continue amlodipine and Coreg. Continue to monitor blood pressure and adjust medications accordingly. (6) Constipation Qualifiers: Constipation type: unspecified constipation type Qualified Code(s): K59.00 - Constipation, unspecified Is this a current diagnosis for this admission?: Yes Plan: 04/17/2019-possibly secondary to pain medications. The patient's bowel function has returned to normal. Continue Colace. (7) Acute kidney injury superimposed on chronic kidney disease Is this a current diagnosis for this admission?: Yes Plan: 04/17/2019-the patient was admitted with acute kidney injury. Admission creatinine was 1.82. The serum creatinine has normalized and his GFR is greater than 60. Acute kidney injury resolved. (8) Right foot pain Is this a current diagnosis for this admission?: Yes Plan: 04/17/2019-the patient has narcotic analgesia. He may also have a component of diabetic neuropathy. His pain is improved. Initially his foot and lower leg were affected and now the pain seems to be localized in his foot. Continue current pain management regimen. - Time Time Spent with patient: 15-24 minutes Medications reviewed and adjusted accordingly: Yes Anticipated discharge: Home with Homehealth
[2019-04-18] MEDS: OXYCODONE-ACETAMINOPHEN 5-325 MG TABLET PO PRN ×4 (05:20→22:45)
[2019-04-18] MEDS: PANTOPRAZOLE SODIUM 20 MG TABLET.DR PO SCH ×2 (06:02→17:43)
[2019-04-18] MEDS: HEPARIN SOD (PORCINE) 5,000 UNIT/ML 1 ML VIAL SUBCUT SCH ×3 (06:02→22:47)
[2019-04-18] MEDS: INSULIN LISPRO 100 UNIT/ML 3 ML VIAL SUBCUT SCH ×7 (09:06→22:45)
[2019-04-18] MEDS: INSULIN GLARGINE,HUM.REC.ANLOG 1,000 UNIT/10 ML VIAL SUBCUT SCH ×2 (09:07→17:36)
[2019-04-18] MEDS: AMLODIPINE BESYLATE 10 MG TABLET PO SCH (09:14)
[2019-04-18] MEDS: DOCUSATE SODIUM 100 MG CAPSULE PO SCH ×2 (09:14→17:42)
[2019-04-18] MEDS: CARVEDILOL 6.25 MG TABLET PO SCH ×2 (09:15→22:44)
[2019-04-18] MEDS: CEFTRIAXONE 2 GM/D5W RTU 2 GM/50 ML RTUPB IV SCH (09:15)
--- NOTE | 2019-04-18 14:18 | PDOC PROGRESS REPORT ---
Subjective Progress Note for:: 04/18/19 Subjective:: 49 year old male with insulin-dependent diabetes who recently had gangrene of the great toe of the right foot with osteomyelitis and had a toe amputated and completed 2 weeks of IV vancomycin on 04/09/2019. [facility] Foster, with infectious disease at [facility], put a note in our record that same day recommending that the vancomycin be stopped and that he continue on 2 more weeks of either Zosyn or Rocephin, because apparently the margins were not mentioned on the pathology report and she recommended 2 more weeks of antibiotics just to be safe. He came back in because he just was not feeling good and felt like his foot was swelling again. He has had a wound VAC on and that was discontinued and is supposed to be doing wet-to-dry dressings. He had a temperature of greater than 102 F in the ER. His creatinine was elevated a little bit above his usual elevated baseline. He is otherwise stable. He is being admitted for IV antibiotics and repeat imaging of his foot. 04/18 [id number] male with history of diabetes mellitus had a right foot gangrene with osteomyelitis status post big toe amputation completed IV antibiotic therapy and he was discharged home he came back again with a fever of 102. Presently he is on wound VAC receiving IV antibiotic therapy. Patient has bacteremia probably it is from a PICC line. PICC line was removed. ID consult was requested. Recommendation is to continue IV Rocephin until the blood cultur es are negative. Cultures are also positive for Acinetobacter pansensitive. Plan is to continue IV Rocephin until the cultures are negative then switch to p.o. ciprofloxacin. It is comfortably in the chair communicating well not in distress. Reason For Visit: FOOT CELLULITIS,EPRLA Physical Exam Vital Signs: Temp Pulse Resp BP Pulse Ox 98.5 F 78 17 141/75 H 96 04/18/19 07:27 04/18/19 07:27 04/18/19 07:27 04/18/19 07:27 04/18/19 07:27 Intake & Output 04/17/19 04/18/19 04/19/19 06:59 06:59 06:59 Intake Total 1370 3010 Output Total 3200 500 Balance -1830 2510 Weight 97.1 kg 97 kg General appearance: PRESENT: no acute distress Head exam: PRESENT: atraumatic Eye exam: PRESENT: PERRLA Mouth exam: PRESENT: moist, tongue midline Teeth exam: PRESENT: poor dentation Neck exam: ABSENT: carotid bruit, JVD, lymphadenopathy, thyromegaly Respiratory exam: PRESENT: decreased breath sounds Cardiovascular exam: PRESENT: RRR. ABSENT: diastolic murmur, rubs, systolic murmur GI/Abdominal exam: PRESENT: normal bowel sounds, soft. ABSENT: distended, guarding, mass, organolmegaly, rebound, tenderness Rectal exam: PRESENT: deferred Extremities exam: PRESENT: other - Partially amputated right foot with wound VAC. Psychiatric exam: PRESENT: appropriate affect, normal mood. ABSENT: homicidal ideation, suicidal ideation Skin exam: PRESENT: dry, intact, warm. ABSENT: cyanosis, rash Results Laboratory Results: 04/18/19 09:14 04/18/19 09:14 04/18/19 04/18/19 09:14 09:14 WBC 13.6 H RBC 4.13 L Hgb 10.2 L Hct 32.1 L MCV 78 L MCH 24.7 L MCHC 31.9 L RDW 16.7 H Plt Count 611 H Seg Neutrophils % 65.8 Sodium 139.7 Potassium 4.8 Chloride 102 Carbon Dioxide 27 Anion Gap 11 BUN 17 Est GFR ( Amer) > 60 Glucose 159 H Calcium 9.5 Magnesium 2.1 04/15/19 13:48 Catheter Tip - Picc Line Catheter Tip Culture - Final NO GROWTH 3 DAYS 04/14/19 04:04 Blood Blood Culture - Final Acinetobacter Baumannii/Haem Impressions: Lower Extremity MRI 04/12/19 00:00 IMPRESSION: 1. Status post amputation of the first digit with overlying postsurgical changes. Mildly abnormal bone marrow signal in the first metatarsal base which is likely postsurgical, although early osteomyelitis may have a similar appearance. 2. Mildly displaced fractures of the second and third metatarsals. Foot X-Ray 04/12/19 19:54 IMPRESSION: Considerable soft tissue swelling. No definite radiographic evidence of osteomyelitis. copyright 2010 [facility]- All Rights Reserved Assessment and Plan - Diagnosis (1) Bacteremia Is this a current diagnosis for this admission?: Yes Plan: 04/17/2019-bacteremia is suspected from PICC line. The PICC line has been pu lled. Infectious diseases suggest continuing Rocephin until the patient has negative blood cultures. Once this occurs then changed to oral antibiotic therapy. 04/18/2019-plan is to continue IV Rocephin until cultures become negative. Then the plan is to switch to p.o. antibiotics. (2) Infection due to acinetobacter baumannii Is this a current diagnosis for this admission?: Yes Plan: Blood cultures are positive for Acinetobacter baumannii. Sensitivities reveal that it is pansensitive. Infectious diseases has recommended ongoing intravenous Rocephin until the patient has negative blood cultures and then change to oral ciprofloxacin. 04/18/2019-blood cultures are positive for Citrobacter pansensitive. As per ID recommendations patient is on IV Rocephin. Once the cultures are negative plan is to change antibiotics to oral Cipro floxacillin. (3) Diabetic foot infection Is this a current diagnosis for this admission?: Yes Plan: 04/17/2019-the patient is status post right hallux amputation. There is a wound VAC currently in place. This was placed after debridement. The patient has been treated with a wound VAC at home. He sees Dr. Menendez in the wound care clinic and has home health the. We will resume home health. I did place orders to change the VAC 3 times a week. 04/18/2019-status post right hallux amputation with wound VAC. Patient will go home with wound VAC. He needs to follow-up with wound care center as an outpatient. (4) Diabetes mellitus type 2 in nonobese Is this a current diagnosis for this admission?: Yes Plan: The patient's Lantus dose was increased yesterday. Since then all his Accu- Cheks are less than 200. We will give the current regimen another day and then consider adjusting the Lantus based on sliding scale requirements. When the patient returns home he will resume his previous regimen. Patient's latest blood sugar is 216. Patient is presently on Accu-Cheks before meals and at bedtime. Diet compliance with medications discussed with the patient. (5) Acute kidney injury superimposed on chronic kidney disease Is this a current diagnosis for this admission?: Yes Plan: 04/17/2019-the patient was admitted with acute kidney injury. Admission creatinine was 1.82. The serum creatinine has normalized and his GFR is greater than 60. Acute kidney injury resolved. 04/18/2019-patient admitted with acute kidney injury today's creatinine is pending. GFR more than 60. Acute kidney injury is resolved. - Time Time Spent with patient: 25-34 minutes Medications reviewed and adjusted accordingly: Yes Anticipated discharge: Home
[2019-04-18 15:16] LABS: ANION GAP 11 (5-19); BLOOD UREA NITROGEN 17 mg/dL (7-20); CALCIUM 9.5 mg/dL (8.4-10.2); CARBON DIOXIDE 27 mmol/L (22-30); CHLORIDE 102 mmol/L (98-107); GLUCOSE 159 mg/dL (75-110); POTASSIUM 4.8 mmol/L (3.6-5.0)
[2019-04-18 15:30] LABS: ABSOLUTE BASOPHILS # (AUTO) 0.1 10^3/uL (0.0-0.2); ABSOLUTE EOSINOPHILS # (AUTO) 0.5 10^3/uL (0.0-0.6); ABSOLUTE LYMPHOCYTES (AUTO) 2.8 10^3/uL (0.5-4.7); ABSOLUTE MONOCYTES (AUTO) 1.1 10^3/uL (0.1-1.4); BASOPHILS % (AUTO) 1.1 % (0-2); HEMATOCRIT 32.1 % (37.9-51.0); HEMOGLOBIN 10.2 g/dL (13.5-17.0); LYMPHOCYTES % (AUTO) 20.9 % (13-45); MEAN CORPUSCULAR HEMOGLOBIN 24.7 pg (27.0-33.4); MEAN CORPUSCULAR HGB CONC 31.9 g/dL (32.0-36.0); MEAN CORPUSCULAR VOLUME 78 fl (80-97); MONOCYTES % (AUTO) 8.2 % (3-13); PLATELET COUNT 611 10^3/uL (150-450); RED BLOOD COUNT 4.13 10^6/uL (4.35-5.55); RED CELL DISTRIBUTION WIDTH 16.7 % (11.5-14.0); SEGMENTED NEUTROPHILS % (AUTO) 65.8 % (42-78); TOTAL CELLS COUNTED % (AUTO) 100 %; WHITE BLOOD COUNT 13.6 10^3/uL (4.0-10.5)
[2019-04-19] MEDS: OXYCODONE-ACETAMINOPHEN 5-325 MG TABLET PO PRN ×3 (04:23→14:28)
[2019-04-19 06:00] LABS: ABSOLUTE BASOPHILS # (AUTO) 0.1 10^3/uL (0.0-0.2); ABSOLUTE EOSINOPHILS # (AUTO) 0.5 10^3/uL (0.0-0.6); ABSOLUTE LYMPHOCYTES (AUTO) 2.1 10^3/uL (0.5-4.7); ABSOLUTE MONOCYTES (AUTO) 0.9 10^3/uL (0.1-1.4); ABSOLUTE NEUT (AUTO) 6.5 10^3/uL (1.7-8.2); EOSINOPHILS % (AUTO) 4.8 % (0-6); HEMATOCRIT 32.3 % (37.9-51.0); HEMOGLOBIN 10.4 g/dL (13.5-17.0); LYMPHOCYTES % (AUTO) 20.7 % (13-45); MEAN CORPUSCULAR HEMOGLOBIN 24.9 pg (27.0-33.4); MEAN CORPUSCULAR HGB CONC 32.2 g/dL (32.0-36.0); MEAN CORPUSCULAR VOLUME 77 fl (80-97); MONOCYTES % (AUTO) 8.7 % (3-13); PLATELET COUNT 574 10^3/uL (150-450); RED BLOOD COUNT 4.17 10^6/uL (4.35-5.55); RED CELL DISTRIBUTION WIDTH 16.2 % (11.5-14.0); SEGMENTED NEUTROPHILS % (AUTO) 64.8 % (42-78); TOTAL CELLS COUNTED % (AUTO) 100 %
[2019-04-19] MEDS: HEPARIN SOD (PORCINE) 5,000 UNIT/ML 1 ML VIAL SUBCUT SCH ×2 (06:14→14:56)
[2019-04-19] MEDS: PANTOPRAZOLE SODIUM 20 MG TABLET.DR PO SCH (06:15)
[2019-04-19 06:18] LABS: ALBUMIN 3.6 g/dL (3.5-5.0); ALKALINE PHOSPHATASE 243 U/L (38-126); ANION GAP 9 (5-19); ASPARTATE AMINO TRANSFERASE 31 U/L (17-59); BILIRUBIN,DIRECT 0.2 mg/dL (0.0-0.4); BILIRUBIN,TOTAL 0.2 mg/dL (0.2-1.3); BLOOD UREA NITROGEN 18 mg/dL (7-20); CALCIUM 9.2 mg/dL (8.4-10.2); CARBON DIOXIDE 30 mmol/L (22-30); CHLORIDE 100 mmol/L (98-107); GLUCOSE 220 mg/dL (75-110); POTASSIUM 4.8 mmol/L (3.6-5.0); TOTAL PROTEIN 6.8 g/dL (6.3-8.2)
[2019-04-19] MEDS: INSULIN GLARGINE,HUM.REC.ANLOG 1,000 UNIT/10 ML VIAL SUBCUT SCH (08:31)
[2019-04-19] MEDS: INSULIN LISPRO 100 UNIT/ML 3 ML VIAL SUBCUT SCH ×4 (08:31→11:48)
[2019-04-19] MEDS: DOCUSATE SODIUM 100 MG CAPSULE PO SCH (09:22)
[2019-04-19] MEDS: AMLODIPINE BESYLATE 10 MG TABLET PO SCH (09:22)
[2019-04-19] MEDS: CARVEDILOL 6.25 MG TABLET PO SCH (09:22)
[2019-04-19] MEDS: CEFTRIAXONE 2 GM/D5W RTU 2 GM/50 ML RTUPB IV SCH (09:23)
--- NOTE | 2019-04-19 14:25 | PDOC DISCHARGE SUMMARY ---
General - Admit/Disc Date/PCP Admission Date/Primary Care Provider: 04/12/19 20:22 CATRACHITO TAN NP Discharge Date: 04/19/19 - Discharge Diagnosis (1) Bacteremia Is this a current diagnosis for this admission?: Yes Summary: Asa need to back her infection from the foot wound traveled into the bloodstream. The patient was on IV Rocephin and discharged on ciprofloxacin per the recommendation of infectious diseases. The original blood cultures had Klebsiella and corynebacterium. Only the Acinetobacter grew in the second set of cultures. The central line catheter tip cultured negative. 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 (3) Diabetic foot infection Is this a current diagnosis for this admission?: Yes Summary: The amputation site for the right hallux was infected. The patient was seen by general surgery but no surgical debridement was performed. He will resume his VAC dressing at home and follow-up appointments with the wound care clinic. (4) Diabetes mellitus type 2 in nonobese Is this a current diagnosis for this admission?: Yes Summary: The patient's Accu-Cheks were reasonably controlled during the hospitalization. He will return to his home regimen at discharge. (5) Hypertension Is this a current diagnosis for this admission?: Yes Summary: The patient's blood pressure initially was not well controlled. Carvedilol was added. He was discharged with the addition of carvedilol for his hypertension. (6) Constipation Is this a current diagnosis for this admission?: Yes Summary: Resolved with stool softeners and laxatives (7) Acute kidney injury superimposed on chronic kidney disease Is this a current diagnosis for this admission?: Yes Summary: The patient's renal function returned to baseline. (8) Right foot pain Is this a current diagnosis for this admission?: Yes Summary: Secondary to the infection. Pain improved as the infection was treated. - Additional Information Resuscitation Status: Full Code Discharge Diet: Cardiac, Diabetic Discharge Activity: Balance Activity w/Rest, Other - Heel walking with right foot only. Do not put weight on the forefoot. Prescriptions: Ciprofloxacin HCl [Cipro 750 mg Tablet] 750 mg PO BID #20 tablet Carvedilol [Coreg 6.25 mg Tablet] 6.25 mg PO Q12 30 Days #60 tablet Home Medications: Insulin Detemir [Levemir Insulin 100 units/mL Insulin Pen] 80 unit SUBCUT BIDBS 03/01/16 Amlodipine Besylate [Norvasc 5 mg Tablet] 5 mg PO DAILY 04/12/19 Insulin Aspart [Novolog Insulin (Aspart) 100 unit/mL] 15 unit SUBCUT AC 04/12/19 Omeprazole 20 mg PO BID 04/12/19 Oxycodone HCl/Acetaminophen [Percocet 5-325 mg Tablet] 1 tab PO Q6HP PRN 04/12/19 Carvedilol [Coreg 6.25 mg Tablet] 6.25 mg PO Q12 30 Days #60 tablet 04/19/19 Ciprofloxacin HCl [Cipro 750 mg Tablet] 750 mg PO BID #20 tablet 04/19/19 History of Present Illness Patient complains of: Right foot pain. Feeling poorly. 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 Infectious diseases suggested ext ended antibiotic therapy as the margins of the surgery did not appear to be completely healthy tissue. The patient began to feel poorly and presented to the hospital. The amputation site was clearly infected. In addition his blood cultures were positive for ROSS needed back after primarily with Klebsiella and corynebacterium isolated out of 1 bottle each. He was referred to the hospital service for admission. Hospital Course Hospital Course: Blood cultures were positive. His central line was removed. He was able to maintain a peripheral IV so that his ceftriaxone could be administered. Upon recommendation by the infectious disease doctor he was discharged on ciprofloxacin to complete a total of 14 days treatment. He will continue with the wound care center. He will resume home health for VAC dressing changes. Physical Exam Vital Signs: Temp Pulse Resp BP Pulse Ox 98.2 F 76 17 134/77 H 91 L 04/19/19 11:32 04/19/19 11:32 04/19/19 11:32 04/19/19 11:32 04/19/19 11:32 Intake & Output 04/18/19 04/19/19 04/20/19 06:59 06:59 06:59 Intake Total 3010 2665 870 Output Total 500 3825 1075 Balance 2510 -1160 -205 Weight 97 kg 95.5 kg General appearance: PRESENT: no acute distress, cooperative, well-developed Head exam: PRESENT: atraumatic, normocephalic Eye exam: PRESENT: conjunctiva pink. ABSENT: scleral icterus Ear exam: PRESENT: normal external ear exam. ABSENT: bleeding, drainage Respiratory exam: PRESENT: clear to auscultation rian, symmetrical, unlabored. ABSENT: rales, rhonchi, tachypnea, wheezes Cardiovascular exam: PRESENT: RRR, +S1, +S2 GI/Abdominal exam: PRESENT: normal bowel sounds, soft. ABSENT: distended, tenderness Rectal exam: PRESENT: deferred Extremities exam: PRESENT: other - VAC dressing amputation site right hallux Musculoskeletal exam: PRESENT: normal inspection - Except amputation. ABSENT: tenderness Neurological exam: PRESENT: alert, awake, oriented to person, oriented to place, oriented to time, oriented to situation, CN II-XII grossly intact Psychiatric exam: PRESENT: appropriate affect, normal mood. ABSENT: agitated, anxious Focused psych exam: ABSENT: delusional, restlessness Skin exam: PRESENT: dry, normal color, warm, other - VAC dressing right foot as above Results Laboratory Results: 04/19/19 05:30 04/19/19 05:30 04/18/19 04/18/19 04/18/19 09:14 09:14 09:14 WBC RBC Hgb Hct MCV MCH MCHC RDW Plt Count Seg Neutrophils % Sodium 139.7 Potassium 4.8 Chloride 102 Carbon Dioxide 27 Anion Gap 11 BUN 17 Creatinine 1.42 H Est GFR ( Amer) > 60 Glucose 159 H Calcium 9.5 Magnesium Total Bilirubin AST Alkaline Phosphatase Total Protein Albumin 04/18/19 04/19/19 04/19/19 09:14 05:30 05:30 WBC 13.6 H 10.0 RBC 4.13 L 4.17 L Hgb 10.2 L 10.4 L Hct 32.1 L 32.3 L MCV 78 L 77 L MCH 24.7 L 24.9 L MCHC 31.9 L 32.2 RDW 16.7 H 16.2 H Plt Count 611 H 574 H Seg Neutrophils % 65.8 64.8 Sodium 139.2 Potassium 4.8 Chloride 100 Carbon Dioxide 30 Anion Gap 9 BUN 18 Creatinine 1.46 H Est GFR ( Amer) > 60 Glucose 220 H Calcium 9.2 Magnesium 2.1 Total Bilirubin 0.2 AST 31 Alkaline Phosphatase 243 H Total Protein 6.8 Albumin 3.6 04/15/19 13:48 Catheter Tip - Picc Line Catheter Tip Culture - Final NO GROWTH 3 DAYS Impressions: Lower Extremity MRI 04/12/19 00:00 IMPRESSION: 1. Status post amputation of the first digit with overlying postsurgical changes. Mildly abnormal bone marrow signal in the first metatarsal base which is likely postsurgical, although early osteomyelitis may have a similar appearance. 2. Mildly displaced fractures of the second and third metatarsals. Foot X-Ray 04/12/19 19:54 IMPRESSION: Considerable soft tissue swelling. No definite radiographic evidence of osteomyelitis. copyright 2010 [employer]- All Rights Reserved Qualifiers - * PATIENT BEING DISCHARGED WITH ANY OF THE FOLLOWING DIAGNOSIS: No Acute Heart Failure - Is this a Heart Failure Patient?: No Plan Discharge Plan: The patient has a VAC unit at home. Home health will not be there until tomorrow. I have ordered nursing to remove the current VAC dressing and apply a moist saline gauze dressing secured with Kerlix. This will keep the wound bed safe until home health can apply a new dressing tomorrow. The patient will be seen in the wound care clinic next week. Time Spent: Greater than 30 Minutes
[2019-04-19 15:04] VITALS: BP 133/73
== END 2019-04-19 17:30 | disposition home health service (06) | DRG 565 ==
LOC: ER 15:37 → EH 20:22 → 5 22:30
PROVIDERS: ADMIT Family Medicine; ATTEND Family Medicine
DX: T87.43 Infection of amputation stump, right lower extremity (principal); R78.81 Bacteremia; N17.9 Acute kidney failure, unspecified; L03.031 Cellulitis of right toe; L76.82 Other postprocedural complications of skin and subcutaneous tissue; E78.00 Pure hypercholesterolemia, unspecified; E11.22 Type 2 diabetes mellitus with diabetic chronic kidney disease; N18.9 Chronic kidney disease, unspecified; G54.6 Phantom limb syndrome with pain; K59.00 Constipation, unspecified; B96.89 Other specified bacterial agents as the cause of diseases classified elsewhere; E11.40 Type 2 diabetes mellitus with diabetic neuropathy, unspecified; I10 Essential (primary) hypertension; F31.9 Bipolar disorder, unspecified; Z79.2 Long term (current) use of antibiotics; Z79.4 Long term (current) use of insulin; Z79.891 Long term (current) use of opiate analgesic; Z79.899 Other long term (current) drug therapy
CPT/HCPCS: 36415; 80048; 80053; 81001; 82803; 82962; 83605; 83735; 85025; 85027; 85610; 87040; 87070; 87077; 87086; 87186; 93005; 93010; 96361; 96374; 99285; J0696; J1644; J1815; J2270; J2543; J3370; J3490; J7030; J7060

== ENCOUNTER → 2019-05-08 | Outpatient (CLI) | payer OTHER, BC ==
[2019-05-08 15:19] LABS: ABSOLUTE EOSINOPHILS # (AUTO) 0.3 10^3/uL (0.0-0.6); ABSOLUTE LYMPHOCYTES (AUTO) 2.6 10^3/uL (0.5-4.7); ABSOLUTE MONOCYTES (AUTO) 0.6 10^3/uL (0.1-1.4); ABSOLUTE NEUT (AUTO) 5.1 10^3/uL (1.7-8.2); BASOPHILS % (AUTO) 0.4 % (0-2); EOSINOPHILS % (AUTO) 3.3 % (0-6); HEMATOCRIT 31.1 % (37.9-51.0); HEMOGLOBIN 10.5 g/dL (13.5-17.0); LYMPHOCYTES % (AUTO) 29.9 % (13-45); MEAN CORPUSCULAR HEMOGLOBIN 25.9 pg (27.0-33.4); MEAN CORPUSCULAR HGB CONC 33.7 g/dL (32.0-36.0); MEAN CORPUSCULAR VOLUME 77 fl (80-97); MONOCYTES % (AUTO) 7.2 % (3-13); PLATELET COUNT 330 10^3/uL (150-450); RED BLOOD COUNT 4.04 10^6/uL (4.35-5.55); SEGMENTED NEUTROPHILS % (AUTO) 59.2 % (42-78); TOTAL CELLS COUNTED % (AUTO) 100 %; WHITE BLOOD COUNT 8.6 10^3/uL (4.0-10.5)
[2019-05-08 15:32] LABS: ANION GAP 11 (5-19); BLOOD UREA NITROGEN 17 mg/dL (7-20); CALCIUM 9.8 mg/dL (8.4-10.2); CARBON DIOXIDE 30 mmol/L (22-30); CHLORIDE 99 mmol/L (98-107); GLUCOSE 130 mg/dL (75-110); PHOSPHORUS 4.4 mg/dL (2.5-4.5); POTASSIUM 4.2 mmol/L (3.6-5.0)
[2019-05-08 16:50] LABS: APPEARANCE,URINE CLEAR; BILIRUBIN,URINE NEGATIVE (NEGATIVE); COLOR,URINE YELLOW; GLUCOSE, URINE NEGATIVE (NEGATIVE); KETONES,URINE NEGATIVE (NEGATIVE); LEUKOCYTE ESTERASE,URINE NEGATIVE (NEGATIVE); NITRITE,URINE NEGATIVE (NEGATIVE); PROTEIN,URINE 100 mg/dL (NEGATIVE); URINE SPECIFIC GRAVITY 1.012; UROBILINOGEN,URINE NEGATIVE mg/dL (<2.0)
[2019-05-08 17:28] LABS: URINE CREATININE 59.7 mg/dL (22-328)
[2019-05-08 17:40] LABS: UR PRO/CREAT RATIO RESULT 5.5 mg/mg (0.0-0.2); URINE PROTEIN 325.6 mg/dL (<12)
== END ==
LOC: OD 14:44
PROVIDERS: ATTEND Physician Assistant Medical
DX: I12.9 Hypertensive chronic kidney disease with stage 1 through stage 4 chronic kidney disease, or unspecified chronic kidney disease (principal); N18.3 Chronic kidney disease, stage 3 (moderate); E11.22 Type 2 diabetes mellitus with diabetic chronic kidney disease; N17.9 Acute kidney failure, unspecified
CPT/HCPCS: 36415; 80048; 81001; 82570; 83970; 84100; 84156; 85025

== ENCOUNTER → 2019-05-09 | Outpatient (CLI) | payer OTHER, BC ==
--- NOTE | 2019-05-10 15:37 | XCELERA REPORT ---
[address] [address] Lower Extremity Arterial Evaluation Name: JOMAR OLIVO Age: 49 yrs Gender: Male : 1970 Patient Status: Outpatient Patient Location: RAD Study Date: 05/09/2019 10:22 AM Procedure: A color flow and duplex scan of the lower extremity arteries was performed bilaterally with velocity and waveform anaylsis. Reason For Study: RT FOOT ULCER Ordering Physician: PHILIP CAVANAUGH Performed By: August Luke Measurements and Calculations Right Left MOTOR OPERATOR PSV 137.5 117.1 cm/sec Prox PFA PSV -77.6 -85.4 cm/sec Prox SFA PSV 96.8 99.2 cm/sec Mid SFA PSV -94.3 -92.4 cm/sec Dist SFA PSV 95.9 -92.4 cm/sec Prox Pop A PSV 87.4 77.6 cm/sec Dist DARLING PSV 96.5 96.8 cm/sec Mid EKG/ECG TECHNICIAN PSV 70.3 cm/sec Dist EKG/ECG TECHNICIAN PSV 40.1 cm/sec Aj Pedis PSV -48.3 108.7 cm/sec Right Side Arterial Evaluation Normal velocity and triphasic waveforms noted from the Common Femoral artery to the infrageniculate vessels . Ankle Brachial index not obtained as vessels are non compressible . Left Side Arterial Evaluation Normal velocity and triphasic waveforms noted from the Common Femoral artery to the infrageniculate vessels . Ankle Brachial index not obtained as vessels are non compressible . Interpretation Summary No hemodynamically significant lesions noted in the bilateral lower extremity arteries, on duplex imaging, at rest. Non compressibility suggests arterial wall stiffness, likely due to Atherosclerosis and or arterial wall calcification. With no apparent compromise of blood supply. : PHILIP CAVANAUGH > Keith Klein
== END ==
LOC: RAD 10:06
PROVIDERS: ATTEND Preventive Medicine Undersea and Hyperbaric Medicine
DX: L97.514 Non-pressure chronic ulcer of other part of right foot with necrosis of bone (principal)
CPT/HCPCS: 93925

== ENCOUNTER → 2019-05-24 | Outpatient (CLI) | payer OTHER, BC ==
[2019-05-24 16:41] LABS: ABSOLUTE EOSINOPHILS # (AUTO) 0.3 10^3/uL (0.0-0.6); ABSOLUTE LYMPHOCYTES (AUTO) 2.8 10^3/uL (0.5-4.7); ABSOLUTE MONOCYTES (AUTO) 0.6 10^3/uL (0.1-1.4); ABSOLUTE NEUT (AUTO) 6.7 10^3/uL (1.7-8.2); BASOPHILS % (AUTO) 0.4 % (0-2); EOSINOPHILS % (AUTO) 2.5 % (0-6); HEMATOCRIT 32.5 % (37.9-51.0); HEMOGLOBIN 10.7 g/dL (13.5-17.0); LYMPHOCYTES % (AUTO) 27.4 % (13-45); MEAN CORPUSCULAR HEMOGLOBIN 25.9 pg (27.0-33.4); MEAN CORPUSCULAR HGB CONC 33.1 g/dL (32.0-36.0); MEAN CORPUSCULAR VOLUME 78 fl (80-97); MONOCYTES % (AUTO) 5.5 % (3-13); PLATELET COUNT 390 10^3/uL (150-450); RED BLOOD COUNT 4.15 10^6/uL (4.35-5.55); RED CELL DISTRIBUTION WIDTH 17.6 % (11.5-14.0); SEGMENTED NEUTROPHILS % (AUTO) 64.2 % (42-78); TOTAL CELLS COUNTED % (AUTO) 100 %; WHITE BLOOD COUNT 10.4 10^3/uL (4.0-10.5)
[2019-05-24 17:04] LABS: ALBUMIN 3.9 g/dL (3.5-5.0); ALKALINE PHOSPHATASE 119 U/L (38-126); ANION GAP 8 (5-19); ASPARTATE AMINO TRANSFERASE 25 U/L (17-59); BILIRUBIN,DIRECT 0.1 mg/dL (0.0-0.4); BILIRUBIN,TOTAL 0.2 mg/dL (0.2-1.3); BLOOD UREA NITROGEN 14 mg/dL (7-20); CALCIUM 9.4 mg/dL (8.4-10.2); CARBON DIOXIDE 30 mmol/L (22-30); CHLORIDE 101 mmol/L (98-107); GLUCOSE 90 mg/dL (75-110); POTASSIUM 4.1 mmol/L (3.6-5.0); TOTAL PROTEIN 8.1 g/dL (6.3-8.2)
[2019-05-24 17:06] LABS: C-REACTIVE PROTEIN < 5.0 mg/L (<10.0)
[2019-05-24 17:17] LABS: ERYTHROCYTE SEDIMENTATION RATE 79 mm/hr (0-15)
--- NOTE | 2019-05-24 17:21 | RADIOLOGY REPORT (SQ) ---
EXAM DESCRIPTION: FOOT RIGHT COMPLETE COMPLETED DATE/TIME: 05/24/2019 4:08 pm REASON FOR STUDY: NON-PRS CHRONIC ULCER OTH PRT RIGHT FOOT W NECROSIS OF BONE E11.621 TYPE 2 DIABET ES MELLITUS WITH FOOT ULCER L97.514 NON-PRS CHRONIC ULCER OTH PRT RIGHT FOOT W NECROSIS COMPARISON: Right foot films 04/12/2019, 04/06/2019, 03/15/2019 NUMBER OF VIEWS: Three views. TECHNIQUE: AP, lateral and oblique radiographic images acquired of the right foot. LIMITATIONS: None. FINDINGS: Post transmetatarsal amputation of the right great toe. There is periosteal new bone sonal g the 1st metatarsal stump. Fractures of the 2nd and 3rd metatarsals distal metastases are present with surrounding bony bridging callus. Continued growth of callus and healing at the fracture sites as compared to previous studie s. 4th and 5th metatarsals are intact. 2nd through 5th toes are grossly intact. Hindfoot bones are int act. There is persistent soft tissue swelling over the forefoot. IMPRESSION: Periosteal new bone formation along the 1st metatarsal stump, and continued growth of anastacia ny callus at healing 2nd and 3rd distal metatarsal fractures TECHNICAL DOCUMENTATION: JOB ID: [id number] [employer]- All Rights Reserved Reading location - IP/workstation name: [email or web address]
--- NOTE | 2019-05-24 17:24 | RADIOLOGY REPORT (SQ) ---
EXAM DESCRIPTION: ANKLE RIGHT COMPLETE COMPLETED DATE/TIME: 05/24/2019 4:08 pm REASON FOR STUDY: NON-PRS CHRONIC ULCER OTH PRT RIGHT FOOT W NECROSIS OF BONE E11.621 TYPE 2 DIABET ES MELLITUS WITH FOOT ULCER L97.514 NON-PRS CHRONIC ULCER OTH PRT RIGHT FOOT W NECROSIS COMPARISON: Right foot films same date NUMBER OF VIEWS: Three views. TECHNIQUE: AP, lateral, and oblique radiographic images acquired of the right ankle. LIMITATIONS: None. FINDINGS: MINERALIZATION: Normal. BONES: No acute fracture or dislocation. No worrisome bone lesions. JOINTS: No effusions. SOFT TISSUES: No soft tissue swelling. No foreign body. OTHER: No other significant finding. IMPRESSION: NEGATIVE STUDY OF THE RIGHT ANKLE. NO RADIOGRAPHIC EVIDENCE OF ACUTE INJURY. TECHNICAL DOCUMENTATION: JOB ID: [id number] [employer] All Rights Reserved Reading location - IP/workstation name: [email or web address]
== END ==
LOC: WC 15:42
PROVIDERS: ATTEND Preventive Medicine Undersea and Hyperbaric Medicine
DX: E11.621 Type 2 diabetes mellitus with foot ulcer (principal); L97.514 Non-pressure chronic ulcer of other part of right foot with necrosis of bone
CPT/HCPCS: 36415; 80053; 83036; 85025; 85652; 86140